=== PATIENT | male | born 1980 | race Caucasian/White ===

== ENCOUNTER → 2019-05-09 10:15 | Outpatient (BNVA) | payer MEDICARE, MEDICAID, SELFPAY | PROVIDERS: Visit Provider Nurse Practitioner | DX: F20.5 Residual schizophrenia (principal) | CPT/HCPCS: 99213 ==

== ENCOUNTER → 2019-08-07 07:44 | Outpatient (BNVA) | payer MEDICARE, MEDICAID, SELFPAY | PROVIDERS: Visit Provider Nurse Practitioner | DX: F20.5 Residual schizophrenia (principal) | CPT/HCPCS: 99214 ==

== ENCOUNTER → 2019-10-31 07:48 | Outpatient (BNVA) | payer MEDICARE, MEDICAID, SELFPAY | PROVIDERS: PCP Nurse Practitioner Family; Visit Provider Nurse Practitioner | DX: F20.5 Residual schizophrenia (principal) | CPT/HCPCS: 99214 ==

== ENCOUNTER → 2019-11-24 12:11 | Outpatient (BNVA) | payer MEDICARE, MEDICAID, SELFPAY | PROVIDERS: PCP Nurse Practitioner Family; Visit Provider Nurse Practitioner Family | DX: E11.9 Type 2 diabetes mellitus without complications (principal); E55.9 Vitamin D deficiency, unspecified; E53.8 Deficiency of other specified B group vitamins; I10 Essential (primary) hypertension; K21.9 Gastro-esophageal reflux disease without esophagitis; E11.42 Type 2 diabetes mellitus with diabetic polyneuropathy; J44.9 Chronic obstructive pulmonary disease, unspecified; E78.5 Hyperlipidemia, unspecified; F20.5 Residual schizophrenia; R60.9 Edema, unspecified; M79.672 Pain in left foot; Z68.31 Body mass index [BMI] 31.0-31.9, adult; F17.210 Nicotine dependence, cigarettes, uncomplicated | CPT/HCPCS: 80053; 80061; 82043; 82306; 82607; 82746; 83036; 84443; 85025; 87086 ==

== ENCOUNTER → 2020-01-07 07:33 | Outpatient (BNVA) | payer MEDICARE, MEDICAID, SELFPAY | PROVIDERS: PCP Nurse Practitioner Family; Visit Provider Nurse Practitioner | DX: F20.5 Residual schizophrenia (principal) | CPT/HCPCS: 99214 ==

== ENCOUNTER → 2020-01-20 14:11 | Outpatient (BNVA) | payer MEDICARE, MEDICAID, SELFPAY | PROVIDERS: PCP Nurse Practitioner Family; Visit Provider Nurse Practitioner Family | DX: R79.89 Other specified abnormal findings of blood chemistry (principal) | CPT/HCPCS: 80053; 85025; 86705; 86706; 86709; 86803; 87340 ==

== ENCOUNTER → 2020-02-23 15:23 | Outpatient (BNVA) | payer MEDICARE, MEDICAID, SELFPAY | PROVIDERS: PCP Nurse Practitioner Family; Visit Provider Nurse Practitioner Family | DX: Z20.828 Contact with and (suspected) exposure to other viral communicable diseases (principal); A08.4 Viral intestinal infection, unspecified | CPT/HCPCS: 87635 ==

== ENCOUNTER → 2020-02-24 10:11 | Outpatient (BNVA) | payer MEDICARE, MEDICAID, SELFPAY | PROVIDERS: PCP Nurse Practitioner Family; Visit Provider Podiatrist Foot & Ankle Surgery | DX: M79.672 Pain in left foot (principal) | CPT/HCPCS: 73630 ==

== ENCOUNTER → 2020-04-13 13:15 | Outpatient (BNVA) | payer MEDICARE, MEDICAID, SELFPAY | PROVIDERS: PCP Nurse Practitioner Family; Visit Provider Nurse Practitioner | DX: F20.5 Residual schizophrenia (principal); F41.1 Generalized anxiety disorder | CPT/HCPCS: 99214 ==

== ENCOUNTER → 2020-05-03 11:44 | Outpatient (BNVA) | payer MEDICARE, MEDICAID, SELFPAY | PROVIDERS: PCP Nurse Practitioner Family; Visit Provider Podiatrist Foot & Ankle Surgery | DX: Z01.812 Encounter for preprocedural laboratory examination (principal) | CPT/HCPCS: 87635 ==

== ENCOUNTER 2020-05-07 08:06 | Day surgery (SDC) | payer MEDICARE, MEDICAID, SELFPAY ==
[2020-05-06 09:08] VITALS: BMI 31.4
--- NOTE | 2020-05-07 | SCC_ITS ---
Procedure Done: Left Bryan bunionectomy CPT code 83367 5 seconds of fluoroscopic guidance, for a cumulative dose of 0.1 mGy, was provided to Dr. Arboleda by the radiology department. C-arm images of the LEFT foot were saved for the patient's permanent record. [facility]
[2020-05-07 08:24] VITALS: BP 132/99; PULSE 106; RESP 18; TEMP 36.2; O2SAT 99
[2020-05-07] MEDS: sodium chloride 0.9% 1,000 ML 30 ML IV (08:30)
--- NOTE | 2020-05-07 08:49 | ANES.PREANE2 ---
Pre-Anesthetic Assessment Pre-Anesthetic Assessment: Height/Weight: Height 1.75 m Weight 96.615 kg Temp Pulse Resp BP Pulse Ox 97.1 F L 106 H 18 132/99 99 05/07/20 08:24 05/07/20 08:24 05/07/20 08:24 05/07/20 08:24 05/07/20 08:24 Preop Diagnosis: Bunion left foot Proposed Procedure: Operation Date: 05/07/20 09:50 Proposed Procedures p Bryan Bunionectomy [place] [id number] M21.612(Left) - Jeet Arboleda DPM s Yo Osteotomy(Left) - Jeet Arboleda DPM Familial anesthetic complications: None Was Beta Bryanna taken within 24 hours: Yes Last intake: Intake Last Liquid Date 05/06/20 Last Liquid Time 21:00 Last Solid Date 05/06/20 Last Solid Time 09:00 Social: Social History: Tobacco and No alcohol Exam: Pre-Anes Outpt Exam: alert, oriented x 3, clear to auscultation bilaterally and regular rate & rhythm Airway: Cervical ROM: WNL MP: 4 Dentition: False Pulmonary: Pulmonary: COPD CV/HEM: CV/HEM: HTN GI: GI: GERD Metabolic: Metabolic: DM and Hyperlipidemia Anesthetic Plan: ASA status: 3 Anesthesia: MAC Risk of > 500 ml blood loss (7ml/kg in children): No PFSH Anesthesia PFSH: Medical History Chronic back pain COPD (chronic obstructive pulmonary disease) Diabetic neuropathy Elevated LFTs Encounter for screening laboratory testing for COVID-19 virus Folate deficiency Generalized anxiety disorder GERD (gastroesophageal reflux disease) Hyperlipidemia Hypertension Peripheral edema Residual schizophrenia Type 2 diabetes mellitus Viral gastroenteritis Vitamin D deficiency Social History Smoking and tobacco status: current every day smoker cigarettes Packs smoked per day: 0.5 Years cigarettes smoked: 16 Second hand smoke exposure: No Smoking risk assessment/counseling performed?: Yes Tobacco counseling given: counseling >3 minutes Alcohol intake: never Lives independently: No Household members: family Marital status: Single Current occupational status: disabled History of recent travel: No Current gender identity: Male Data Anesthesia Cardiac Studies: No Data to Display
[2020-05-07 08:53] LABS: Glucose Point of Care 130 mg/dL (70-110)
[2020-05-07] MEDS: midazolam 1 mg/mL INJ 2 mL 2 MG IVP (09:04)
--- NOTE | 2020-05-07 09:10 | P.HPUD_ITS ---
Surgery/Procedure H&P Update DATE OF PROCEDURE: May 07, 2020 DATE H&P PERFORMED: 05/03/20 H&P UPDATE INFORMATION: I have reviewed H&P completed within last 30 days, I have examined patient prior to procedure, No changes to prior documentation and H&P is in [facility] EMR on date indicated PREOP DIAGNOSIS: Bunion left foot PLANNED PROCEDURE: Operation Date: 05/07/20 09:50 Proposed Procedures p Bryan Bunionectomy [place] [id number] M21.612(Left) - Jeet Arboleda DPM s Yo Osteotomy(Left) - Jeet Arboleda DPM
--- NOTE | 2020-05-07 10:33 | ANE.PACU2 ---
Inpatient post-anesthesia follow up: Airway intact: Yes Vital signs: Temperature 97.1 F Pulse Rate 106 Respiratory Rate 18 Blood Pressure 132/99 Pulse Oximetry 99 Oxygen Delivery Me thod Room Air Oxygen Flow Rate Fraction of Inspir ed Oxygen Hydration adequate: Yes Nausea and vomiting: No Pain level: 1 Mental status: Baseline
--- NOTE | 2020-05-07 10:34 | XR_ITS ---
WS: [id number] Left foot, 3 views, 05/07/2020 Clinical Data: post op Comparison: Left foot, 02/24/2020. Findings: The patient has had an osteotomy of the distal left first metatarsal reduced with an oblique screw an d a lateral plate and transverse screws. The remainder the foot is unremarkable. XR/XR foot LT min 3V* 00800 Impression: Osteotomy of distal left first metatarsal.
[2020-05-07 10:36] VITALS: BP 135/91; PULSE 95; RESP 18; TEMP 36.1; O2SAT 98
[2020-05-07 10:55] VITALS: BP 124/93; PULSE 92; RESP 18; O2SAT 97
--- NOTE | 2020-05-07 11:18 | P.OP_ITS ---
Operative Report Date of procedure: May 07, 2020 Pre-op Diagnosis: Bunion left foot Post-op diagnosis: same Procedure Done: Left Bryan bunionectomy CPT code 65984 Implants: Right medical minimax lock ISO plate. 2.4 mm x 20 mm locking screw x2, 2.4 mm x 22 mm nonlocking screw. 3-0 Vicryl, 4-0 Vicryl, 4-0 nylon. Pathology: none sent Surgeon: Jeet Arboleda D.P.M. Night Court Magistrate: Stella Miranda Anesthesia: MAC Estimated blood loss: Less than 5 mL Tourniquet time: See intraoperative documentation IV fluids: None Urine output: None Complications: None Findings: Bunion left foot Condition: stable Disposition: PACU Brief History: Mr. Gutierrez is a 39-year-old male with a progressive bunion deformity that has increased in pain. He is unable to perform everyday activities without pain this include standing and walking. Conservative treatment has been exhausted consisting of wide accommodative shoes, orthotics, stretching, anti-inflammatories and activity modifications. He would like to proceed with a bunionectomy. Risks include pain, bleeding, numbness, infection, hallux varus, under correction of deformity, under correction of deformity, hardware failure, hardware irritation, delayed union, nonunion, malunion, transfer pressure and transfer lesion. Hypersensitivity, numbness chronic swelling and loss of function and need for further surgical intervention also risk of recurrence of deformity. Patient interviewed in preoperative holding, all questions answered to his satisfaction. No guarantees written, expressed or implied. Informed consent is signed, I initialed his left foot, he also initialed his left foot. Ready to proceed. Procedure: Under mild sedation the patient was brought to the operating room and placed on the operating table in supine position. A timeout was performed. Anesthesia was administered by the anesthesia service. Local anesthesia injected by myself consisting of 30 cc of 0.5 sent Marcaine plain and a left Mera block fashion. Well-padded pneumatic tourniquet applied to the left ankle. Left lower extremity was scrubbed, prepped and draped utilizing normal aseptic technique. Left foot is examined a weighted with an Esmarch bandage and tourniquet inflated to 250 mmHg. There was an issue with a tourniquet and an Esmarch tourniquet was applied to maintain hemostasis. Attention was directed to the dorsal medial aspect of the left first metatarsophalangeal joint where a linear longitudinal incision was made medial and parallel to the extensor houses longus tendon. Dissection was carried down through subcutaneous tissue and a linear capsulotomy was performed. Head of the first metatarsal was freed from its soft tissue attachments. Dorsal medial eminence of the first metatarsal head was transected with a sagittal saw and passed from operative field. Chevron osteotomy with apex pointed distally was performed 15 mm from the articular surface at at the apex followed by translation of the head of the first metatarsal laterally temporally fixated with a K wire. The first metatarsal was broached intramedullary broach was utilized provided by [employer]. Followed by countersink and removing the remaining shelf of the medial first metatarsal head and neck. This was passed from operative field and all rough edges were smoothed. Mini Max Loc, ISL plate was inserted down the medullary canal of the first metatarsal and fixated distally with 2.4 mm x 20 mm locking screws x2 with excellent bony apposition and compression noted. Alcohol was filled with a 2.4 mm x 22 mm nonlocking screw with excellent bony apposition and compression noted. Guides were removed, temporary fixation was removed. Intraoperative fluoroscopy utilized to confirm excellent correction of the first ray and placement of orthopedic hardware to be appropriate in all 3 cardinal planes. Incision site was then flushed with saline solution. Capsule closed with 3-0 Vicryl. Subcutaneous tissue closed with 4-0 Vicryl and skin closed with 4-0 nylon. Incision site was infiltrated subcutaneously in a grid like fashion utilizing 20 cc of Exparel per manufacture recommendation and technique. This was then dressed with Adaptic, sterile 4 x 4, Kerlix and Toño wrap followed by application of cam boot. Tourniquet was removed and a prompt hyperemic response is noted to the distal digits of the left foot. Patient tolerated procedure well was transferred to the PACU with vital signs stable and vascular status intact. Following a period of postoperative monitoring he will be discharged home he was prescribed a set of crutches to utilize and help stabilize his gait he may be protected weightbearing with Cam boot utilizing crutches for stability. Was also prescribed Percocet states that the allergy that was listed in our system is incorrect that he does not have an allergy to Percocet this was sent to his pharmacy of choice electronically to be utilize judiciously as needed for pain.
== END 2020-05-07 11:02 | disposition home or self-care (01) ==
PROVIDERS: PCP Nurse Practitioner Family; Visit Provider Podiatrist Foot & Ankle Surgery
PROC: (CPT 28297; principal; 2020-05-07 09:50)
PROC: (CPT 28298; 2020-05-07 09:50)
DX: M21.612 Bunion of left foot (principal); J44.9 Chronic obstructive pulmonary disease, unspecified; I10 Essential (primary) hypertension; K21.9 Gastro-esophageal reflux disease without esophagitis; E11.9 Type 2 diabetes mellitus without complications; E78.5 Hyperlipidemia, unspecified; F41.9 Anxiety disorder, unspecified; F17.210 Nicotine dependence, cigarettes, uncomplicated
CPT/HCPCS: 28296; 12345; 36416; 73630; 76000; 82962; C1713; C9290; J0690; J2250; J2704; J3010; J3490; J7030

== ENCOUNTER → 2020-05-12 08:51 | Outpatient (BNVA) | payer MEDICARE, MEDICAID, SELFPAY | PROVIDERS: PCP Nurse Practitioner Family; Visit Provider Nurse Practitioner | DX: F20.5 Residual schizophrenia (principal); F41.1 Generalized anxiety disorder | CPT/HCPCS: 99214 ==

== ENCOUNTER → 2020-05-14 09:35 | Outpatient (BNVA) | payer MEDICARE, MEDICAID, SELFPAY | PROVIDERS: PCP Nurse Practitioner Family; Visit Provider Podiatrist Foot & Ankle Surgery | DX: M21.612 Bunion of left foot (principal); M79.672 Pain in left foot | CPT/HCPCS: 73630 ==

== ENCOUNTER 2020-06-03 08:38 | Outpatient (CLI) | payer MEDICARE, MEDICAID, SELFPAY ==
--- NOTE | 2020-06-03 08:50 | XR_ITS ---
WS: [id number] FOOT LEFT TECHNIQUE: 3 views of the left foot CLINICAL INFORMATION: Z98.890 - Other specified postprocedural states COMPARISON: May 14, 2020 FINDINGS: Postoperative changes bunionectomy with osteotomy. Plate and screw fixation across the head of the fi rst metatarsal. No evidence of screw loosening. Hardware appears in good position. XR/XR foot LT min 3V* [id number] IMPRESSION: Stable postoperative changes bunionectomy with osteotomy and plate and screw fi xation.
== END 2020-06-03 08:39 | disposition home or self-care (01) ==
PROVIDERS: PCP Nurse Practitioner Family; Visit Provider Podiatrist Foot & Ankle Surgery
DX: Z98.890 Other specified postprocedural states (principal)
CPT/HCPCS: 73630

== ENCOUNTER → 2020-06-08 10:43 | Outpatient (BNVA) | payer MEDICARE, MEDICAID, SELFPAY | PROVIDERS: PCP Nurse Practitioner Family; Visit Provider Nurse Practitioner Family | DX: E55.9 Vitamin D deficiency, unspecified (principal); I10 Essential (primary) hypertension; R73.9 Hyperglycemia, unspecified | CPT/HCPCS: 80053; 80061; 82306; 83036; 84443; 85025 ==

== ENCOUNTER → 2020-06-21 13:20 | Outpatient (BNVA) | payer MEDICARE, MEDICAID, SELFPAY | PROVIDERS: PCP Nurse Practitioner Family; Visit Provider Podiatrist Foot & Ankle Surgery | DX: M21.612 Bunion of left foot (principal) | CPT/HCPCS: 73630 ==

== ENCOUNTER → 2020-07-14 13:56 | Outpatient (BNVA) | payer MEDICARE, MEDICAID, SELFPAY | PROVIDERS: PCP Nurse Practitioner Family; Visit Provider Podiatrist Foot & Ankle Surgery | DX: Z98.890 Other specified postprocedural states (principal) | CPT/HCPCS: 73630 ==

== ENCOUNTER → 2020-07-28 11:06 | Outpatient (BNVA) | payer MEDICARE, MEDICAID, SELFPAY | PROVIDERS: PCP Nurse Practitioner Family; Visit Provider Nurse Practitioner | DX: E11.42 Type 2 diabetes mellitus with diabetic polyneuropathy (principal); E55.9 Vitamin D deficiency, unspecified; I10 Essential (primary) hypertension | CPT/HCPCS: 72072; 72100; 80048; 82607 ==

== ENCOUNTER → 2020-07-30 12:40 | Outpatient (BNVA) | payer MEDICARE, MEDICAID, SELFPAY | PROVIDERS: PCP Nurse Practitioner Family; Visit Provider Nurse Practitioner | DX: F41.1 Generalized anxiety disorder (principal); F20.5 Residual schizophrenia | CPT/HCPCS: 99214 ==

== ENCOUNTER 2020-08-03 11:08 | Outpatient (CLI) | payer MEDICARE, MEDICAID, SELFPAY | END 2020-08-03 11:09 | disposition home or self-care (01) | LOC: SPT 11:09 | PROVIDERS: PCP Nurse Practitioner Family; Visit Provider Podiatrist Foot & Ankle Surgery | DX: Z46.89 Encounter for fitting and adjustment of other specified devices (principal); M79.672 Pain in left foot; M21.612 Bunion of left foot | CPT/HCPCS: 97760; L3030 ==

== ENCOUNTER → 2020-08-09 14:46 | Outpatient (BNVA) | payer MEDICARE, MEDICAID, SELFPAY | PROVIDERS: PCP Nurse Practitioner Family; Visit Provider Nurse Practitioner Family | DX: R60.9 Edema, unspecified (principal); E11.42 Type 2 diabetes mellitus with diabetic polyneuropathy; I10 Essential (primary) hypertension | CPT/HCPCS: 80048; 83880 ==

== ENCOUNTER → 2020-08-19 09:42 | Outpatient (BNVA) | payer MEDICARE, MEDICAID, SELFPAY | PROVIDERS: PCP Nurse Practitioner Family; Referring Provider Nurse Practitioner; Visit Provider Orthopaedic Surgery | DX: M47.896 Other spondylosis, lumbar region (principal); M43.17 Spondylolisthesis, lumbosacral region; M54.5 Low back pain | CPT/HCPCS: 72110 ==

== ENCOUNTER 2020-08-20 13:46 | Outpatient (CLI) | payer MEDICARE, MEDICAID, SELFPAY ==
--- NOTE | 2020-08-20 14:30 | MR_ITS ---
WS: [id number] MRI LUMBAR SPINE NONCONTRAST TECHNIQUE: Sagittal T1, T2 and STIR imaging. Axial T1 and T2 imaging. CLINICAL INFORMATION: COMPARISON: None. FINDINGS: Mild lumbar curve. No acute compression. No high-grade central canal stenosis. Grade 1 anterolisthesi s L5 on S1 with chronic spondylolysis. Grade 1 anterolisthesis measures 7.8 mm. L1-L2: Normal. L2-L3: No significant disc bulging. Mild facet arthropathy. Spinal canal and foramen are patent. L3-L4: Mild annular bulging with a small central disc protrusion and small annular fissure. Mild cent ral canal stenosis. Impingement on the traversing L4 nerve roots bilaterally. Mild facet arthropathy. Foramen are patent. L4-L5: Mild disc bulging with slight effacement of the ventral thecal sac. Mild central canal stenosi s. Slight impingement traversing L5 nerve roots bilaterally. Mild facet arthropathy. Mild right raymon inal narrowing. Left foramen is patent. L5-S1: Grade 1 anterolisthesis with bilateral chronic pars defects. Mild facet arthropathy. Mild left greater than right foraminal narrowing. Mild Visualized pelvic bony structures: Normal. Paravertebral soft tissues: Normal. MR/MR lumbar spine wo con* [id number] IMPRESSION: 1. Mild lumbar curve. No acute compression. No high-grade central canal stenos is. 2. Grade 1 anterolisthesis L5 on S1 with chronic bilateral pars defects. 3. Small shallow central protrusion L3-4 with a small annular tear and mild ce ntral canal stenosis. Slight impingement traversing L4 nerve roots bilaterally. 4. Mild annular bulging L4-5 with slight impingement on the traversing L5 nerv e roots bilaterally with mild central canal stenosis. Right foraminal protrusio n with mild right foraminal narrowing. 5. Mild left greater than right L5-S1 foraminal narrowing.
== END 2020-08-20 13:47 | disposition home or self-care (01) ==
PROVIDERS: PCP Nurse Practitioner Family; Visit Provider Orthopaedic Surgery
DX: M43.10 Spondylolisthesis, site unspecified (principal); M51.26 Other intervertebral disc displacement, lumbar region; M48.061 Spinal stenosis, lumbar region without neurogenic claudication
CPT/HCPCS: 72148

== ENCOUNTER → 2020-08-25 08:22 | Outpatient (BNVA) | payer MEDICARE, MEDICAID, SELFPAY | PROVIDERS: PCP Nurse Practitioner Family; Referring Provider Orthopaedic Surgery; Visit Provider Anesthesiology Pain Medicine | DX: M51.17 Intervertebral disc disorders with radiculopathy, lumbosacral region (principal); M47.816 Spondylosis without myelopathy or radiculopathy, lumbar region; M48.061 Spinal stenosis, lumbar region without neurogenic claudication; M54.9 Dorsalgia, unspecified; M79.605 Pain in left leg; F17.210 Nicotine dependence, cigarettes, uncomplicated; Z79.891 Long term (current) use of opiate analgesic | CPT/HCPCS: 99205 ==

== ENCOUNTER → 2020-09-03 15:26 | Outpatient (BNVA) | payer MEDICARE, MEDICAID, SELFPAY | PROVIDERS: PCP Nurse Practitioner Family; Visit Provider Orthopaedic Surgery | DX: Z20.822 Contact with and (suspected) exposure to COVID-19 (principal) | CPT/HCPCS: 87635 ==

== ENCOUNTER 2020-09-08 10:50 | Observation (INO) | payer MEDICARE, MEDICAID, SELFPAY ==
[2020-09-07 11:46] VITALS: BMI 31.0
--- NOTE | 2020-09-07 11:55 | ANES.PREANE2 ---
Pre-Anesthetic Assessment Pre-Anesthetic Assessment: Height/Weight: Height 1.75 m Weight 95.254 kg Preop Diagnosis: Bunion left foot Proposed Procedure: Operation Date: 09/08/20 07:00 Proposed Procedures p L4/5 L5/S1 Posterior Lumbar Interbody Fusion [id number] 61232 M43.10 M48.062(Not Applicable) - Nirmal Hannon, Familial anesthetic complications: None Social: Social History: Tobacco and No alcohol Comment: remote alcohol use Exam: Pre-Anes Outpt Exam: alert, oriented x 3, clear to auscultation bilaterally and regular rate & rhythm Airway: Cervical ROM: WNL MP: 3 Dentition: False Pulmonary: Pulmonary: COPD CV/HEM: CV/HEM: HTN Hepatic: Comments: hx elevated LFTs (remote) GI: GI: GERD Metabolic: Metabolic: DM and Hyperlipidemia Neuropsych: Neuropsych: Anxiety and Bipolar Anesthetic Plan: ASA status: 3 Anesthesia: General Risk of > 500 ml blood loss (7ml/kg in children): No PFSH Anesthesia PFSH: Medical History Chronic back pain COPD (chronic obstructive pulmonary disease) Diabetic neuropathy Elevated LFTs Encounter for screening laboratory testing for COVID-19 virus Folate deficiency Generalized anxiety disorder GERD (gastroesophageal reflux disease) Hyperlipidemia Hypertension Peripheral edema Residual schizophrenia Viral gastroenteritis Vitamin D deficiency Surgical History History of vasectomy Social History (Updated 08/25/20 @ 08:45 by Michelle Maldonado LPN) Smoking and tobacco status: current every day smoker cigarettes Packs smoked per day: 0.5 Years cigarettes smoked: 16 Second hand smoke exposure: No Smoking risk assessment/counseling performed?: Yes Tobacco counseling given: counseling >3 minutes Alcohol intake: never Desire information about alcohol rehabilitation?: No Counseling given: No Desire information about substance/drug rehabilitation?: No Counseling given: No Adopted: No Caregiver/support person: No Lives independently: Yes Household members: family Housing: House Marital status: Single Number of children: 2 service: No Current occupational status: disabled History of recent travel: No Current gender identity: Male Data Anesthesia Cardiac Studies: No Data to Display
[2020-09-07 13:21] LABS: Basophils # 0.1 10^3/uL (0.0-0.1); Basophils % 0.8 %; Eosinophils # 0.1 10^3/uL (0.0-0.8); Hematocrit 46.1 % (42.0-52.0); Hemoglobin 15.9 g/dL (11.7-16.6); Lymphocytes # 3.6 10^3/uL (0.8-4.8); Lymphocytes % 26.3 %; Mean Corpuscular HGB Conc 34.5 g/dL (30.0-36.0); Mean Corpuscular Hemoglobin 30.6 pg (28.0-34.0); Mean Corpuscular Volume 88.8 fL (80-94); Mean Platelet Volume 10.6 fL (7.4-10.4); Neutrophils # 8.88 10^3/uL (1.8-7.7); Neutrophils % 64.2 %; Nucleated Red Blood Cells % 0.1 %; Platelet Count 277 10^3/cmm (130-400); Red Blood Count 5.19 10^6/uL (4.1-5.3); Red Cell Distribution Width 13.8 % (12.1-15.1); White Blood Count 13.8 10^3/uL (4.0-10.0)
[2020-09-07 13:36] LABS: Alanine Aminotransferase 76 U/L (0-41); Albumin Level 4.3 g/dL (3.5-5.2); Alkaline Phosphatase 125 IU/L (40-130); Anion Gap 15.5 (5-19); Aspartate Amino Transferase 61 U/L (0-40); Blood Urea Nitrogen 5 mg/dL (6-20); Calcium 9.3 mg/dL (8.5-10.5); Carbon Dioxide 25 mmol/L (22-29); Chloride 100 mmol/L (98-107); Globulin 3.1 g/dL (1.3-4.6); Glomerular Filtration Rate 108.8 mL/min (90-130); Glucose 76 mg/dL (65-115); Osmolality Calculated 278 mOsm/kg (285-295); Potassium 4.5 mmol/L (3.5-5.1); Sodium 136 mmol/L (136-145); Total Bilirubin 0.3 mg/dL (0.15-1.2); Total Protein 7.4 g/dL (6.6-8.7)
[2020-09-08] VITALS (22 sets, daily range): BP systolic 101–182; BP diastolic 56–158; PULSE 99–124; RESP 15–24; TEMP 36.3–37.3; O2SAT 94–99
--- NOTE | 2020-09-08 | SCC_ITS ---
Procedure Done: 1. L4/5 Interbody fusion with posterolateral fusion 2. L5/S1 Interbody fusion with posterolateral fusion 3. Instrumentation L4-S1 4. Cage at L4/5 5. Cage L5/S1 6. Laminectomy L4 for decompression of L5 nerve 7. Laminectomy L5 for decompression of S1 nerve 8. use of autograft from same incision 9. allograft 10. Bone marrow aspirate from right iliac crest 11. Use of computer navigation stereotactic 28 seconds of fluoroscopic guidance, for a cumulative dose of 59.6 mGy, was provided to Dr. Hannon by the radiology department. C-arm images of the lumbar spine were saved for the patient's permanent record. [facility]
--- NOTE | 2020-09-08 | XR_ITS ---
WS: [id number] Lumbar spine, C-arm fluoroscopy, 09/08/2020 Clinical Data: spondylolisthesis Comparison: None. Findings: There is a posterior lumbar fusion with bilateral pedicle screws at L4-L5 and S1. There is artificial disc at L4-L5 and L5-S1. XR/XR lumbar spine 2-3V* [id number] Impression: Posterior lumbar fusion.
[2020-09-08] MEDS: sodium chloride 0.9% 1,000 ML 30 ML IV (06:24)
--- NOTE | 2020-09-08 06:49 | W.PM.OPSUD ---
Surgery/Procedure H&P Update DATE OF PROCEDURE: September 08, 2020 DATE H&P PERFORMED: 08/24/20 H&P UPDATE INFORMATION: I have reviewed H&P completed within last 30 days, I have examined patient prior to procedure and No changes to prior documentation PREOP DIAGNOSIS: Bunion left foot PLANNED PROCEDURE: Operation Date: 09/08/20 07:00 Proposed Procedures p L4/5 L5/S1 Posterior Lumbar Interbody Fusion [id number] 87047 81640 [id number] 59955 M43.10 M48.062(Not Applicable) - Nirmal Hannon DO
[2020-09-08] MEDS: heparin, porcine 1,000 unit/mL INJ 10 mL 10000 UNIT IRRIGATION (07:51)
[2020-09-08] MEDS: vancomycin 1,000 MG SDV 1000 MG XX (10:32)
--- NOTE | 2020-09-08 10:55 | PM.OP ---
Operative Report Date of procedure: September 08, 2020 Pre-op Diagnosis: Lumbar stenosis and Spondylolisthesis Post-op diagnosis: same Procedure Done: 1. L4/5 Interbody fusion with posterolateral fusion 2. L5/S1 Interbody fusion with posterolateral fusion 3. Instrumentation L4-S1 4. Cage at L4/5 5. Cage L5/S1 6. Laminectomy L4 for decompression of L5 nerve 7. Laminectomy L5 for decompression of S1 nerve 8. use of autograft from same incision 9. allograft 10. Bone marrow aspirate from right iliac crest 11. Use of computer navigation stereotactic Surgeon: Nirmal Hannon Anesthesia: General Estimated blood loss (mL): 150 Condition: stable Disposition: PACU Procedure: 1. L4/5 Interbody fusion with posterolateral fusion 2. L5/S1 Interbody fusion with posterolateral fusion 3. Instrumentation L4-S1 4. Cage at L4/5 5. Cage L5/S1 6. Laminectomy L4 for decompression of L5 nerve 7. Laminectomy L5 for decompression of S1 nerve 8. use of autograft from same incision 9. allograft 10. Bone marrow aspirate from right iliac crest 11. Use of computer navigation stereotactic Patient is brought to the operative suite. After undergoing anesthesia, the patient had neuro monitoring attached. Patient was then placed in the prone position on the Carlos table. All areas of impingement were well-padded. Patient was then prepped and draped in the normal sterile fashion. Skin incision was then made over the L4 to S1 space. Subperiosteal dissection was made out to the transverse processes of L4 and L5 and the Ala of S1. Once the exposure was complete attention was then brought to placing the pedicle screws. Prior to placing the pedicle screws the [employer] bone marrow aspirate kit was used to aspirate bone marrow aspirate. This was done by using the sharp probe to open up the bone of the right iliac crest. Aspiration was performed and then the blunt probe was then used to dissect down to through the bone tunnel. An aspirating well drawn back a millimeter approximately 20 cc of bone marrow aspirate was used. And mixed with the allograft and autograft bone that will be used. The fiducial probe was then attached to the iliac crest on the right. To pins were drilled into the iliac crest. And then the fiducial was locked into position and read with the computer in order to perform the computer-assisted navigation. The technique for placing the pedicle screws was to use a drill followed by the gearshift probe with stereotactic navigation. Followed by the ball probe to feel the superior inferior medial lateral car of the pedicles. Then placement of the screws. Was done at each pedicle. Screws were placed at L L4 bilaterally and L L5 bilaterally and S1 bilaterally. These were all done by using the computer navigation. Next attention was brought to performing the laminectomy ofL4. This was done using the high-speed bur Kerrisons and curettes. Once the lamina was removed and then attention was brought to performing a partial facetectomy on the contralateral side. This was done again using the high-speed bur curettes and Kerrisons. The ligamentum flavum was taken down bilaterally from L4 to L5. Attention was then brought to the facet on the ipsilateral side. The facet was taken down. The L5 nerve was decompressed as it passed around the L5 pedicle. The laminectomy was done for purposes of decompressing the nerve as well as placement of the cage. The L4 nerve was identified as it traversed through the L4/5 foramen. The thecal sac was identified and retracted. The L4/5 disc base was identified. Using a knife the disc base was opened. And then sequential osmel were placed. The first shaver was a 6 and the last shaver was a 8. Using a pituitary and down going curette the endplates were scraped and disc material was removed from the space. Once adequate decompression of the disc base was felt to be had. Osteoamp sponge was packed into the anterior aspect of the disc base. Then a size 8 cage from [employer] was placed after packing osteoamp into the cage. While placing the cage the thecal sac and L5 nerve was protected. C arm was used to ensure that the cages placed in the appropriate position. Next attention was brought to performing the laminectomy ofL5. This was done using the high-speed bur Kerrisons and curettes. Once the lamina was removed and then attention was brought to performing a partial facetectomy on the contralateral side. This was done again using the high-speed bur curettes and Kerrisons. The ligamentum flavum was taken down bilaterally from L5 to S1. Attention was then brought to the facet on the ipsilateral side. The facet was taken down. The S1 nerve was decompressed as it passed around the S1 pedicle. The laminectomy was done for purposes of decompressing the nerve as well as placement of the cage. The L5 nerve was identified as it traversed through the L5/S1 foramen. The thecal sac was identified and retracted. The L5/S1 disc base was identified. Using a knife the disc base was opened. And then sequential osmel were placed. The first shaver was a 6 and the last shaver was a 8. Using a pituitary and down going curette the endplates were scraped and disc material was removed from the space. Once adequate decompression of the disc base was felt to be had. Osteoamp sponge was packed into the anterior aspect of the disc base. Then a size 8 cage from [employer] was placed after packing osteoamp into the cage. While placing the cage the thecal sac and S1 nerve was protected. C arm was used to ensure that the cages placed in the appropriate positi Attention was then brought to attaching the rods to the screws placed in the L4 bilaterally and L5 bilaterally and S1 bilaterally. Caps were torqued into position. Locking the construct in place. Wound was copiously irrigated and then attention was brought to decorticating the facets and transverse processes laterally. Bone that was taken down from the lamina was used along with osteoamp fibers and sponges were packed into the lateral gutters along the facet joints. This was done bilaterally. Wound was then closed in a layered fashion starting with the thoracolumbar fascia. 0-vicryl was used the sub cutaneous tissue was closed with 2-0 vicryl and skin with 4-0 monocryl. Glue was then used to seal the skin and a steril Silverlon dressing was applied. Patient was then placed in the supine position. The endotracheal tube was removed and patient was transferred to the PACU in stable condition.
[2020-09-08] MEDS: ipratropium 0.5 mg/2.5 mL Neb INHALATION (10:59)
[2020-09-08] MEDS: naloxone 0.4 mg/ml SDV IVP (11:14)
--- NOTE | 2020-09-08 11:22 | PM.CONSULT ---
Providers/Reason For Consult Consulting Physician/Specialty*: Dixon Saavedra MD, hospitalist Reason for Consult*: Medical management, hypertension management Attending Physician: Nirmal Hannon DO Primary Care Provider: WYATT Thomas History of Present Illness History of Present Illness Aries Gutierrez is a 39 year old male who presents to the outpatient surgery for surgical intervention on his lower back for chronic low back pain, having the diagnosis of lumbar stenosis and spondylolisthesis. He underwent fusion of L4/L5 and L5/S1 with instrumentation and cage. From my understanding there were no complications to surgery. I saw him directly postoperatively and he was somewhat sedated unable to answer many questions. Anesthesia saw him as well and gave him a small dose of Narcan and his level of alertness improved. However, full review of systems cannot be done at this time. Review of Systems General: Reports: ROS unobtainable due to mental status (Sedated, directly postoperative) Meds/Allergies Home Medications and Allergies Home Medications Medication Instructions Recorded Confirmed Last Taken Type nitroglycerin 0.4 mg sublingual 0.4 mg SUBLINGUAL Q5M PRN 05/09/19 09/07/20 Unknown History tablet albuterol sulfate 2.5 mg INHALATION QID PRN #75 ml 09/12/19 09/08/20 05/04/20 Rx ondansetron HCl 4 mg tablet 4 mg PO Q6H PRN #20 tab 02/23/20 09/07/20 Unknown Rx crutch #2 ea 05/05/20 08/25/20 Unknown Rx atorvastatin 40 mg tablet See Rx Instructions .ROUTE 06/08/20 09/07/20 Unknown Rx .COMPLEX #90 tab cetirizine 10 mg tablet 10 mg PO DAILY #30 tab 06/08/20 09/07/20 Unknown Rx famotidine 20 mg tablet See Rx Instructions .ROUTE 06/08/20 09/07/20 Unknown Rx .COMPLEX #180 tab folic acid 1 mg tablet See Rx Instructions .ROUTE 06/08/20 09/07/20 Unknown Rx .COMPLEX #90 tab lisinopril 10 mg tablet See Rx Instructions .ROUTE 06/08/20 09/07/20 Unknown Rx .COMPLEX #90 tab sitagliptin 100 mg-metformin ER See Rx Instructions .ROUTE 06/08/20 09/07/20 Unknown Rx 1,000 mg tablet,extended .COMPLEX #90 tab [email or web address] mp custom sole support #1 ea 07/14/20 08/25/20 Unknown Rx diabetic shoes no inserts #1 ea 07/14/20 08/25/20 Unknown Rx albuterol sulfate 90 mcg/actuation See Rx Instructions .ROUTE 07/26/20 09/08/20 09/08/20 06:08 Rx aerosol inhaler .COMPLEX #18 g desvenlafaxine succinate 50 mg 50 mg PO DAILY #30 tab 07/30/20 09/07/20 Unknown Rx tablet,extended release 24 hr olanzapine 20 mg tablet 20 mg PO .HS #30 tab 07/30/20 09/07/20 Unknown Rx propranolol 10 mg tablet 10 mg PO TID #90 tab 07/30/20 09/07/20 Unknown Rx trazodone 50 mg tablet 75 mg PO .HS #45 tab 07/30/20 09/07/20 Unknown Rx potassium chloride 10 mEq 10 meq PO DAILY #14 cap 08/09/20 09/07/20 Unknown Rx capsule,extended release Diabetic Shoes #1 ea 08/13/20 08/25/20 Unknown Rx gabapentin 600 mg tablet 600 mg PO TID #90 tab 08/25/20 09/07/20 Unknown Rx oxycodone-acetaminophen 5 mg-325 1 tab PO Q8H PRN 7 Days #21 tab 08/31/20 09/07/20 Unknown Rx mg tablet furosemide 20 mg tablet 20 mg PO QAM #30 tab 09/02/20 09/07/20 Unknown Rx Allergies Allergy/AdvReac Type Severity Reaction Status Date / Time quetiapine [From Seroquel] Allergy SEIZURES Verified 08/25/20 08:44 Current Medications Current Medications Generic Name Dose Route Start Last Admin Trade Name Freq PRN Reason Stop Dose Admin Sodium Chloride 1,000 mls @ 30 mls/hr 09/08/20 06:00 09/08/20 06:24 Sodium Chloride 0.9% IV 09/09/20 05:59 30 mls/hr .Q24H MICAH Administration PFSH Acute PFSH: Medical History (Updated 09/08/20 @ 11:34 by Dixon Saavedra MD) Chronic back pain COPD (chronic obstructive pulmonary disease) Diabetes mellitus Diabetic neuropathy Elevated LFTs Encounter for screening laboratory testing for COVID-19 virus Folate deficiency Generalized anxiety disorder GERD (gastroesophageal reflux disease) Hyperlipidemia Hypertension Peripheral edema Residual schizophrenia Viral gastroenteritis Vitamin D deficiency Surgical History History of vasectomy Social History Smoking and tobacco status: current every day smoker cigarettes Packs smoked per day: 0.5 Years cigarettes smoked: 16 Second hand smoke exposure: No Smoking risk assessment/counseling performed?: Yes Tobacco counseling given: counseling >3 minutes Alcohol intake: never Desire information about alcohol rehabilitation?: No Counseling given: No Desire information about substance/drug rehabilitation?: No Counseling given: No Adopted: No Caregiver/support person: No Lives independently: Yes Household members: family Housing: House Marital status: Single Number of children: 2 service: No Current occupational status: disabled History of recent travel: No Current gender identity: Male Vitals/I&O/Wt Last Vital Signs Temp 99.2 F 09/08/20 10:58 Pulse 110 H 09/08/20 11:15 Resp 24 H 09/08/20 11:15 BP 151/81 09/08/20 11:15 Pulse Ox 99 09/08/20 11:15 09/07/20 09/08/20 09/08/20 22:59 06:59 14:59 Intake Total 950 / 950 Output Total 400 / 400 Balance 550 / 550 Weight last 48 hrs Weight 95.254 kg Weight 95.254 kg Physical Exam Narrative: EXAM NARRATIVE: Sedated white male who is now coming around. HEENT: Pupils equally round. Oropharynx clear. Neck is supple no lymphadenopathy or thyromegaly Cardiovascular regular rate and rhythm without murmur Lungs a few expiratory wheezes, and upper airway noises that appear to be clearing with him coughing Abdomen is soft obese nontender with positive bowel sounds. No obvious organomegaly. Binder is noted. was deferred Extremities no cyanosis clubbing or edema, cap refill brisk. Neurologic: No obvious focal deficits. Able to dorsiflex both feet. Urinary Catheter Management^: F: Cath Placed During This Visit: yes, but has since been removed by the nurse Urinary Catheter Date of Insertion: 09/08/20 Urinary Catheter Time of Insertion: 07:20 Date Urinary Catheter Removed: 09/08/20 Time Urinary Catheter Discontinued: 10:55 A&P Assessment and plan (1) Lumbar stenosis: Directly postoperative L5/S1 and L4/L5 fusion. Doing well. Status: Acute (2) COPD (chronic obstructive pulmonary disease): Continue home medication, monitor for any exacerbation Status: Acute Qualifiers: COPD type: unspecified COPD Qualified Code(s): J44.9 - Chronic obstructive pulmonary disease, unspecified (3) Hypertension: Continue home medication Status: Chronic Qualifiers: Hypertension type: essential hypertension Qualified Code(s): I10 - Essential (primary) hypertension (4) Diabetes mellitus: Change diet to consistent carb Continue home medication Previous A1c's demonstrate excellent control. Status: Acute (5) Residual schizophrenia: Continue home medication Status: Acute Additional A&P Information Hyperlipidemia, continue home medicine GERD, continue home medicine Multiple other medical problems as outlined in past medical history. Full code Lovenox for DVT prophylaxis Consult Attestations Medical Necessity Statement: As per primary Time Spent in Patient Care: Greater than 35 minutes Coding Level of Care Code Acute [employer] for [facility] Fwd Diagnoses Lumbar stenosis M48.061 COPD (chronic obstructive pulmonary disease) J44.9 COPD type: unspecified COPD Hypertension I10 Hypertension type: essential hypertension Diabetes mellitus E11.9 Residual schizophrenia F20.5
[2020-09-08] MEDS: labetalol 5 mg/mL SDV 20mL IVP (11:31)
--- NOTE | 2020-09-08 11:43 | SUR.PHASEI ---
1115- ORAL AIRWAY OUT, SIMPLE MASK AT 10LPM, SAT 99%
[2020-09-08] MEDS: lactated ringers 1,000 ML 90 ML IV ×2 (12:17→21:30)
[2020-09-08 12:19] LABS: Glucose Point of Care 191 mg/dL (70-110)
[2020-09-08] MEDS: HYDROcodone-acetaminophen 5-325 mg Tablet PO ×2 (12:49→20:30)
[2020-09-08] MEDS: gabapentin 300 mg Capsule 600 MG PO ×2 (15:06→20:31)
[2020-09-08] MEDS: propranolol 20 mg Tablet 10 MG PO ×2 (15:07→20:39)
[2020-09-08] MEDS: morphine 4 mg/mL SDV 1 mL 2 MG IVP (15:08)
--- NOTE | 2020-09-08 15:37 | ANE.PACU2 ---
Inpatient post-anesthesia follow up: Airway intact: Yes Vital signs: Temperature 98.3 F Pulse Rate 124 Respiratory Rate 18 Blood Pressure 120/76 Pulse Oximetry 98 Oxygen Delivery Me thod Nasal Cannula Oxygen Flow Rate 2 Fraction of Inspir ed Oxygen Hydration adequate: Yes Nausea and vomiting: No Pain level: 3 Mental status: Baseline Additional Comments: Required Narcan 0.2 mg IV
--- NOTE | 2020-09-08 15:38 | PC.RESP ---
SMOKING CESSATION AND PULMONARY REHAB INFORMATION SENT TO PATIENT.
[2020-09-08 17:27] LABS: Glucose Point of Care 166 mg/dL (70-110)
[2020-09-08] MEDS: docusate sodium 100 mg Capsule PO (18:27)
[2020-09-08] MEDS: famotidine 20 mg Tablet PO (18:27)
[2020-09-08] MEDS: ketorolac 30 mg/mL INJ IVP (18:27)
[2020-09-08] MEDS: trazodone 50 mg Tablet 75 MG PO (20:30)
[2020-09-08] MEDS: OLANZapine 10 mg TABLET 20 MG PO (20:31)
[2020-09-08 20:45] LABS: Glucose Point of Care 167 mg/dL (70-110)
[2020-09-08 23:11] LABS: Glucose Point of Care 148 mg/dL (70-110)
[2020-09-09] MEDS: HYDROcodone-acetaminophen 5-325 mg Tablet PO ×2 (00:42→06:10)
[2020-09-09 03:38] VITALS: BP 125/77; PULSE 97; RESP 18; TEMP 36.7; O2SAT 95
[2020-09-09] MEDS: ketorolac 30 mg/mL INJ IVP (03:44)
--- NOTE | 2020-09-09 05:09 | PC.NURSE ---
SHIFT SUMMARY Has rested for periods. Is easily awakened. Surgical dressing intact to medial low back and abd binder in place. IV infusing at 90ml/hr rate and will receive 3rd dose of antibiotics at 0700 this am. Pain has been controlled with po Hydrocodone and IV Toradol
[2020-09-09] MEDS: enoxaparin 40 mg/0.4 mL Syringe SUBCUT (06:10)
[2020-09-09] MEDS: FUROsemide 20 mg Tablet PO (06:10)
[2020-09-09 06:35] LABS: Glucose Point of Care 157 mg/dL (70-110)
[2020-09-09 07:45] VITALS: BP 123/80; PULSE 103; RESP 17; TEMP 37.2; O2SAT 97
--- NOTE | 2020-09-09 08:29 | PM.DCS ---
Discharge Providers Date of Admission: 09/08/20 10:50 Date of Discharge: September 09, 2020 Attending Provider at Admission: Dixon Saavedra MD Attending Provider at Discharge: Nirmal Hannon DO Primary Care Provider: WYATT Thomas Diagnoses at Discharge Discharge Diagnosis (1) Lumbar stenosis: Status: Acute (2) COPD (chronic obstructive pulmonary disease): Status: Acute Qualifiers: COPD type: unspecified COPD Qualified Code(s): J44.9 - Chronic obstructive pulmonary disease, unspecified (3) Hypertension: Status: Chronic Qualifiers: Hypertension type: essential hypertension Qualified Code(s): I10 - Essential (primary) hypertension (4) Diabetes mellitus: Status: Acute (5) Residual schizophrenia: Status: Acute Reason for Visit Reason for Visit: spondylolisthesis Hospital Course Hospital Course Patient is admitted on 09/08/2020 he had a two-level PLIF done. His stay was uneventful he was discharged on 09/09/2020 Physical Exam Narrative: EXAM NARRATIVE: Patient sitting up Ang[place] style in bed no pain in his legs incision clean dry and intact Urinary Catheter Management^: F: Cath Placed During This Visit: yes, but has since been removed by the nurse Urinary Catheter Date of Insertion: 09/08/20 Urinary Catheter Time of Insertion: 07:20 Date Urinary Catheter Removed: 09/08/20 Time Urinary Catheter Discontinued: 10:55 Discharge Data Data Completed and Pending: Completed Studies During Hospitalization Category Date Time Status XR lumbar spine 2 -3V* 38412 Routine Exams 09/08/20 Completed Labs from last 24 hours 09/09/20 09/08/20 09/08/20 06:24 20:42 17:07 POC Glucose 157 H 167 H 166 H 09/08/20 09/08/20 12:08 06:19 POC Glucose 191 H 148 H Vitals: Last Vital Signs Temp 98.9 F 09/09/20 07:45 Pulse 103 H 09/09/20 07:45 Resp 17 09/09/20 07:45 BP 123/80 09/09/20 07:45 Pulse Ox 97 09/09/20 07:45 Discharge Plan Discharge Patient Disposition: Home Condition: Stable Prescriptions: New hydrocodone-acetaminophen 5-325 mg tablet 1 - 2 tab PO .Q4-6H Qty: 40 RF: 0 Continued ondansetron HCl [Zofran] 4 mg tablet 4 mg PO Q6H PRN (Reason: nausea and vomiting) Qty: 20 RF: 0 Janumet XR 100-1,000 mg tablet, ER multiphase 24 hr See Rx Instructions .ROUTE .COMPLEX Qty: 90 RF: 1 lisinopril 10 mg tablet See Rx Instructions .ROUTE .COMPLEX Qty: 90 RF: 1 folic acid 1 mg tablet See Rx Instructions .ROUTE .COMPLEX Qty: 90 RF: 1 famotidine 20 mg tablet See Rx Instructions .ROUTE .COMPLEX Qty: 180 RF: 1 atorvastatin 40 mg tablet See Rx Instructions .ROUTE .COMPLEX Qty: 90 RF: 1 cetirizine [Zyrtec] 10 mg tablet 10 mg PO DAILY Qty: 30 RF: 2 trazodone 50 mg tablet 75 mg PO .HS Qty: 45 RF: 2 olanzapine [Zyprexa] 20 mg tablet 20 mg PO .HS Qty: 30 RF: 2 propranolol 10 mg tablet 10 mg PO TID Qty: 90 RF: 2 desvenlafaxine succinate [Pristiq] 50 mg tablet extended release 24 hr 50 mg PO DAILY Qty: 30 RF: 2 (DME) Diabetic Shoes See Rx Instructions .Route .MEDSUPPLY Qty: 1 RF: 0 nitroglycerin 0.4 mg tablet, sublingual 0.4 mg SUBLINGUAL Q5M PRN (Reason: Chest Pain) RF: 0 (DME) custom sole support See Rx Instructions .Route .MEDSUPPLY Qty: 1 RF: 0 (DME) diabetic shoes no inserts See Rx Instructions .Route .MEDSUPPLY Qty: 1 RF: 0 potassium chloride 10 mEq capsule, extended release 10 meq PO DAILY Qty: 14 RF: 0 gabapentin 600 mg tablet 600 mg PO TID Qty: 90 RF: 0 albuterol sulfate 2.5 mg /3 mL (0.083 %) solution for nebulization 2.5 mg INHALATION QID PRN (Reason: shortness of breath or wheezing) Qty: 75 RF: 0 (DME) crutch Misc See Rx Instructions .ROUTE .MEDSUPPLY Qty: 2 RF: 0 albuterol sulfate [Ventolin HFA] 90 mcg/actuation HFA aerosol inhaler See Rx Instructions .ROUTE .COMPLEX Qty: 18 RF: 5 oxycodone-acetaminophen [Percocet] 5-325 mg tablet 1 tab PO Q8H PRN (Reason: pain) 7 Days Qty: 21 RF: 0 furosemide [Lasix] 20 mg tablet 20 mg PO QAM Qty: 30 RF: 1 Discharge Orders: Discharge Order (Routine); Ordered 09/09/20 Ordered By: Nirmal Hannon Discharge Diet: Advance as tolerated Discharge Activity: Limit activity as instructed Patient Instructions: Opioid Safety Activity Restrictions/Additional Instructions: Thank you for [facility] for your care! The following is a list of instructions, from your provider, to follow upon your discharge to ensure you have the optimal recovery from your recent injury orsurgery. Follow-up care is a dennis part of your treatment and safety. Be sure to make and go to all appointments, and call your doctor if you are having problems. If you do not already have a follow-up appointment made, call Dr. Hannon office in the next 1-3 days to make follow up appointment for 1 weeks at [phone]. It is also a good idea to know your test results and keep a list of the medicines you take. Medications will be prescribed for you at your provider's discretion. These medications are to be used as instructed; if they are taken more often that prescribed they will not be refilled early and in most cases will not be refilled at all. > When a refill is needed,you should contact armando hodgson 2-3 business days before your prescription runs out. Medications will NOT be refilled by communications equipment supervisor providers after hours! > Many pain medications contain Tylenol (Acetaminophen). Do not consume more than 4,000 mg of Tylenol per day in total with any combination ofmedications. > Pain medications can cause constipation. Please use an over the counter stool softener as directed, while taking pain medications. Consulty our local pharmacist with questions or recommendations on stool softeners. If constipation persists, contact our office or your primary care provider. > While under our care,you are not to receive pain medications or other controlled substances from any other provider unless our office is notified and approves. Any attempts to do so will result in refusal to prescribe any further pain medications and possible dismissal from our practice. ? Your wound and/or dressing should remain clean and dry for 2 days after surgery. On postoperative day 7 > It is normal for there to be a small amount of discharge (bloody or blood tinged) present from a surgical wound for the first 1-3days. > The wound should be examined twice a day for signs of infection. Mild redness or bruising is to be expected but indications that an infection maybe starting would include; An increase in redness, swelling, or discharge, a foul odor present around the incision, and/or a fever greater than 101 ?F ? Showering is permitted, however we ask that you do not take a bath, sit in a whirlpool / Jacuzzi, or go swimming for 1 month. For only the first 2 days after surgery, lt wilt be necessary for you to cover your wound/dressing with plastic and tape to keep it dry. ? Walking is essential for the healing process after surgery. We would like you to slowly advance your walking. This should be done on relatively flat clear ground (inside or out) or can be done on a treadmill. Remember this goal does not have to happen all at once, slowly increase your distance and duration. This can be broken into more more than one walk per day as tolerated. Patients who walk as directed after surgery rarely require Physical Therapy. In the unlikely event this issue arises your provider will direct hospital staff to make the appropriate arrangements. ? No lifting over 5 pounds {a gallon of milk) or bending/twisting until further notice. Each of these activities places an unnecessary amount of stress onto the body and can impede the delicate healing process. > Instead of bending at the waist, keep your back straight and bend at the knees. > Instead of twisting your torso, keep your back straight and turn your entire body with your feet. ? You may sleep in any position which makes you comfortable. Many patients find comfort sleeping in a reclining chair. It is not abnormal to have difficulty sleeping for the first several weeks following your surgery. We recommend trying Benadry! or Tylenol PM as directed to help with your sleeping difficulties. Both medications are over the counter and available withoutprescription. ? NO SMOKING!!! Smoking dramatically increases the probability of developing postoperative wound infections. ? Common complaints after lumbar and/or thoracic spine surgery include, but are not limited to: numbness and/or tingling in the legs, pain around the incision and surrounding tissues, muscle spasms, or stiffness of the middle to low back. Contact our office if these symptoms persist or if an acute change occurs. ? No driving for the first 3-5days, and not while taking narcotics until seen at your follow-up appointment and cleared. There are no restrictions for riding on short trips, however if you take a longer trip, arrangements should be made to make regular stops to get out of the vehicle and stretch . ? Swelling is an unfortunate event that will take place with any surgery and is the primary source of your postoperative discomfort. While walking and regular approved activities helps control inflammation, there are additional steps you can take to minimizeswelling. > Place ice over the surgical site and surrounding tissue for twenty minutes, followed by applying a low/medium heat (heating pad) for an additional twenty minutes every 1-2 hours as needed for painrelief. > You may use of over the counter anti-inflammatory medications (Ibuprofen, Motrin, Aleve, Advil, etc) as directed on the package label. These types of medicines wm significantly reduce the amount of discomfort you experience after surgery from swelling. It should be noted that if you have and allergy to any of these medications, or a history of ulcers or kidney disease you should consult you primary care provider prior to starting these medications. Discharge Attestations Time Spent in Discharge Care*: less than 30 min Quality Metrics Clinical Quality Measures During this hospital stay, did patient experience: None Coding Level of Care Code Acute [facility] note Diagnoses Lumbar stenosis M48.061 COPD (chronic obstructive pulmonary disease) J44.9 COPD type: unspecified COPD Hypertension I10 Hypertension type: essential hypertension Diabetes mellitus E11.9 Residual schizophrenia F20.5
[2020-09-09] MEDS: propranolol 20 mg Tablet 10 MG PO (08:33)
[2020-09-09] MEDS: potassium chloride ER 10 mEq Tablet PO (08:33)
[2020-09-09] MEDS: atorvastatin 40 mg Tablet DOBHOFF (08:33)
[2020-09-09] MEDS: desvenlafaxine 50 mg Tablet PO (08:34)
[2020-09-09] MEDS: gabapentin 300 mg Capsule 600 MG PO (08:34)
[2020-09-09] MEDS: docusate sodium 100 mg Capsule PO (08:34)
[2020-09-09] MEDS: folic acid 1 mg Tablet PO (08:34)
[2020-09-09] MEDS: lisinopril 10 mg Tablet PO (08:34)
[2020-09-09] MEDS: cetirizine 10 mg Tablet PO (08:34)
[2020-09-09] MEDS: famotidine 20 mg Tablet PO (08:34)
--- NOTE | 2020-09-09 09:41 | P.PN_ITS ---
Subjective Subjective: Interval history: No issues overnight. Eager to be discharged. Medications: Reviewed: Yes Vitals/I&O/Wt Last Vital Signs Temp 98.9 F 09/09/20 07:45 Pulse 103 H 09/09/20 07:45 Resp 17 09/09/20 07:45 BP 123/80 09/09/20 07:45 Pulse Ox 97 09/09/20 07:45 09/08/20 09/09/20 09/09/20 22:59 06:59 14:59 Intake Total 2119.5 / 3069.5 770 / 3839.5 50 / 50 Output Total 1600 / 2000 Balance 2119.5 / 2669.5 -830 / 1839.5 50 / 50 Weight last 48 hrs Weight 95.254 kg Weight 95.254 kg Physical Exam Narrative: EXAM NARRATIVE: General exam is up and alert, no apparent distress Neck is supple no lymphadenopathy or thyromegaly Cardiovascular regular rate and rhythm without murmur Lungs clear Abdomen is soft obese nontender with positive bowel sounds. No obvious organomegaly. Binder is noted. Extremities no cyanosis clubbing or edema, cap refill brisk. No foot drop Urinary Catheter Management^: F: Cath Placed During This Visit: yes, but has since been removed by the nurse Urinary Catheter Date of Insertion: 09/08/20 Urinary Catheter Time of Insertion: 07:20 Date Urinary Catheter Removed: 09/08/20 Time Urinary Catheter Discontinued: 10:55 Data : 09/07/20 12:10 09/07/20 12:10 A&P Assessment and plan (1) Lumbar stenosis: Postoperative day #1 L5/S1 and L4/L5 fusion. Doing well. Home today Status: Acute (2) COPD (chronic obstructive pulmonary disease): Continue home medication, monitor for any exacerbation Status: Acute Qualifiers: COPD type: unspecified COPD Qualified Code(s): J44.9 - Chronic obstructive pulmonary disease, unspecified (3) Hypertension: Continue home medication Status: Chronic Qualifiers: Hypertension type: essential hypertension Qualified Code(s): I10 - Essential (primary) hypertension (4) Diabetes mellitus: Change diet to consistent carb Continue home medication Previous A1c's demonstrate excellent control. Status: Acute (5) Residual schizophrenia: Continue home medication Status: Acute Additional A&P Information Hyperlipidemia, continue home medicine GERD, continue home medicine Multiple other medical problems as outlined in past medical history. Full code Lovenox for DVT prophylaxis Attestations Medical Necessity Statement*: As per primary Coding Level of Care Code Acute [employer] [facility] Diagnoses Lumbar stenosis M48.061 COPD (chronic obstructive pulmonary disease) J44.9 COPD type: unspecified COPD Hypertension I10 Hypertension type: essential hypertension Diabetes mellitus E11.9 Residual schizophrenia F20.5
== END 2020-09-09 09:57 | disposition home or self-care (01) ==
LOC: MEDSURG 11:37
PROVIDERS: Anesthesiology; Admitting Provider Internal Medicine; PCP Nurse Practitioner Family; Visit Provider Orthopaedic Surgery
PROC: (CPT 22612; principal; 2020-09-08 07:00)
DX: M48.061 Spinal stenosis, lumbar region without neurogenic claudication (principal); J44.9 Chronic obstructive pulmonary disease, unspecified; I10 Essential (primary) hypertension; F20.5 Residual schizophrenia; G89.29 Other chronic pain; M54.9 Dorsalgia, unspecified; E11.42 Type 2 diabetes mellitus with diabetic polyneuropathy; Z79.891 Long term (current) use of opiate analgesic; K21.9 Gastro-esophageal reflux disease without esophagitis; E78.5 Hyperlipidemia, unspecified; E55.9 Vitamin D deficiency, unspecified; F17.210 Nicotine dependence, cigarettes, uncomplicated
CPT/HCPCS: 20930; 20939; 22633; 22634 ×2; 22842; 22853 ×2; 61783; 63047; 63048; 36415; 36416; 51702; 72100; 76000; 80053; 82962; 85025; 96372; 97116; 97161; 97530; C1713; C9359; G0378; J0690; J1100; J1644; J1650; J1815; J1885; J2250; J2270; J2310; J2405; J2704; J3010; J3370; J3490; J7030; J7611; J7644

== ENCOUNTER → 2020-10-26 07:18 | Outpatient (BNVA) | payer MEDICARE, MEDICAID, SELFPAY | PROVIDERS: PCP Nurse Practitioner Family; Visit Provider Nurse Practitioner | DX: F20.5 Residual schizophrenia (principal); F41.1 Generalized anxiety disorder | CPT/HCPCS: 72100; 99214 ==

== ENCOUNTER → 2020-11-01 14:49 | Outpatient (BNVA) | payer MEDICARE, MEDICAID, SELFPAY | PROVIDERS: PCP Nurse Practitioner Family; Visit Provider Nurse Practitioner Family | DX: J44.1 Chronic obstructive pulmonary disease with (acute) exacerbation (principal); Z11.52 Encounter for screening for COVID-19; L08.9 Local infection of the skin and subcutaneous tissue, unspecified; B96.89 Other specified bacterial agents as the cause of diseases classified elsewhere | CPT/HCPCS: 87635 ==

== ENCOUNTER → 2020-11-12 11:04 | Outpatient (BNVA) | payer MEDICARE, MEDICAID, SELFPAY | PROVIDERS: PCP Nurse Practitioner Family; Visit Provider Nurse Practitioner Family | DX: M25.552 Pain in left hip (principal); M25.562 Pain in left knee | CPT/HCPCS: 73502; 73562 ==

== ENCOUNTER → 2020-12-23 15:54 | Outpatient (BNVA) | payer MEDICARE, MEDICAID, SELFPAY | PROVIDERS: PCP Nurse Practitioner Family; Visit Provider Orthopaedic Surgery | DX: Z98.890 Other specified postprocedural states (principal); Z48.89 Encounter for other specified surgical aftercare | CPT/HCPCS: 72100 ==

== ENCOUNTER → 2021-01-10 08:47 | Outpatient (BNVA) | payer MEDICARE, MEDICAID, SELFPAY | PROVIDERS: PCP Nurse Practitioner Family; Visit Provider Nurse Practitioner Family | DX: E11.9 Type 2 diabetes mellitus without complications (principal); E55.9 Vitamin D deficiency, unspecified; M54.16 Radiculopathy, lumbar region; R60.9 Edema, unspecified; E78.5 Hyperlipidemia, unspecified; K21.9 Gastro-esophageal reflux disease without esophagitis; J44.9 Chronic obstructive pulmonary disease, unspecified; I10 Essential (primary) hypertension; F20.5 Residual schizophrenia; Z71.6 Tobacco abuse counseling; Z91.89 Other specified personal risk factors, not elsewhere classified | CPT/HCPCS: 80053; 80061; 82306; 83036; 83735; 85025 ==

== ENCOUNTER → 2021-01-17 08:50 | Outpatient (BNVA) | payer MEDICARE, MEDICAID, SELFPAY | PROVIDERS: PCP Nurse Practitioner Family; Visit Provider Nurse Practitioner Family | DX: E83.42 Hypomagnesemia (principal) | CPT/HCPCS: 80048; 83735 ==

== ENCOUNTER → 2021-01-18 09:58 | Outpatient (BNVA) | payer MEDICARE, MEDICAID, SELFPAY | PROVIDERS: PCP Nurse Practitioner Family; Visit Provider Nurse Practitioner | DX: F41.1 Generalized anxiety disorder (principal); F20.5 Residual schizophrenia | CPT/HCPCS: 99214 ==

== ENCOUNTER 2021-03-17 10:03 | Emergency (ER) | payer MEDICARE, MEDICAID, SELFPAY ==
[2021-03-17 10:11] VITALS: BP 122/83; PULSE 103; RESP 16; TEMP 36.2; O2SAT 95; BMI 28.0
--- NOTE | 2021-03-17 10:28 | CT_ITS ---
WS: [id number] CT LUMBAR SPINE, noncontrast. HISTORY: Lifting injury, pain w/ pain and tingling LEFT leg TECHNIQUE: Contiguous 2.5 mm axial imaging are performed. Sagittal and coronal reformats are submitte d and reviewed. All CT scans at [facility] use at least one of these dose optimization techni ques: automated exposure control; mA and/or kV adjustment per patient size (includes targeted exams w here dose is matched to clinical indication); or iterative reconstruction. IV contrast: None DLP: 2433.08 mGy.cm COMPARISON: Lumbar spine radiograph 12/23/2020 Status post posterior lumbar fusion from L4 to S1. Bilateral pedicle screws and vertical rods appear to be intact. No fractures. There is increased lucency around the sacral screws bilaterally. No lucen cy around the pedicle screws at L4 or L5. Interbody spacers at L4-5 and L5-S1. L5 anterolisthesis by 5.4 mm is stable. No fractures. L1-2: Normal. L2-3: Mild annular disc bulging. No focal disc protrusion. There is disc encroachment upon the ventra l thecal sac with no stenosis. L3-4: Artifact from the patient's fusion hardware encroaching into the central canal. No significant stenosis identified. No nerve root encroachment. There is very slight narrowing of the RIGHT foramen. L4-5: Large LEFT hemilaminectomy defect. Mild osteophytic ridging. There is mild asymmetric disc bulg ing centrally and to the RIGHT. There is a very small RIGHT foraminal disc protrusion which is causin g very slight contact but no displacement on the traversing RIGHT L5 nerve root. L5-S1: There is a very large LEFT hemilaminectomy defect. Within the surgical bed there is a soft tis job mass which is effacing fat and extending into the LEFT foramen. Fat within the LEFT foramen has b een completely effaced. This soft tissue density extends from the superior endplate of L5 inferiorly by approximately 3 cm and posterior to the S1 vertebral body. Visualized retroperitoneum is normal. CT/CT lumbar spine wo con* [id number] IMPRESSION: 1. Patient is status post posterior lumbar fusion from L4 to S1 bilaterally wi th interbody spacers at L4-5 and L5-S1. 2. Stable grade 1 anterolisthesis of L5. 3. Large LEFT hemilaminectomy defects at L4 and L5. 4. Increased lucency around the sacral screws suggesting loosening. This can b e followed up on serial CT examinations for progression. 5. There is extensive increased soft tissue beginning posterior to L5 and exte nding to S1 through the surgical site causing complete effacement of fat within the LEFT lateral thecal sac and the LEFT L5-S1 foramen. This all may be postsu rgical changes and fibrosis and scar tissue. No prior studies for comparison. C annot exclude associated disc protrusion. 6. Small RIGHT subarticular disc protrusion at L4-5 with minimal contact on th e traversing RIGHT L5 nerve root.
--- NOTE | 2021-03-17 10:30 | ED_ITS ---
HPI - Back Pain/Injury General: Chief Complaint: Back Pain/Injury Stated Complaint: BACK PAIN:SURGERY 09.04.20/HAVING PROBLEMS Time Seen by Provider: 03/17/21 10:18 History of Present Illness: HPI Narrative: Patient is a 40-year-old male comes to the ED with lower back pain. Patient has a history of chronic back pain and sees Dr. Hannon. He had an L4-S1 Fusion surgery back in August 2020. 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 He says the pain radiates down into his left leg and he has little bit of numbness tingling sensation to his left foot as well. It is painful for him to walk. He tried contacting Dr. Hannon's office but they were booked up today. He rates his pain currently as a 9 out of 10. Any movement makes pain worse. Denies any bladder or bowel incontinence, pelvic anesthesia or any weakness to extremities. Associated symptoms: Deny abdominal pain, chills, dysuria, fatigue, fever(s), hematuria, nausea or vomiting Review of Systems Const: Denies: fever(s), chills or fatigue Eyes: Denies: change in vision or eye discomfort ENMT: Denies: throat pain, odynophagia, nasal discharge or nasal congestion Card: Denies: chest pain, palpitations, edema, swelling of feet/ankles, d yspnea on exertion or orthopnea Resp: Denies: dyspnea, productive cough or non-productive cough GI: Denies: abdominal pain, nausea, vomiting, diarrhea, constipation or hematochezia : Denies: flank pain, difficulty urinating, dysuria or hematuria Musc: Reports: back pain; Denies: neck pain or extremity swelling Skin/Breast: Denies: rash or new lesions Neuro: Reports: sensory changes (Numbness tingling on left foot); Denies: headache(s), numbness in extremities or weakness in extremities [facility] ED PFSH: Medical History Chronic back pain COPD (chronic obstructive pulmonary disease) Diabetes mellitus Diabetic neuropathy Elevated LFTs Encounter for screening laboratory testing for COVID-19 virus Folate deficiency Generalized anxiety disorder GERD (gastroesophageal reflux disease) Hyperlipidemia Hypertension Peripheral edema Psychiatric care Residual schizophrenia Viral gastroenteritis Vitamin D deficiency Surgical History History of vasectomy Family History Other Diabetes Hypertension Denies family history of Cancer Social History Quit status (tobacco): has quit using tobacco Second hand smoke exposure: No Smoking risk assessment/counseling performed?: Yes Tobacco counseling given: counseling >3 minutes and other Alcohol intake: never Desire information about alcohol rehabilitation?: No Counseling given: No Desire information about substance/drug rehabilitation?: No Counseling given: No Adopted: No Caregiver/support person: No Lives independently: Yes Household members: family Housing: House Marital status: Single Number of children: 2 service: No Current occupational status: disabled History of recent travel: No Current gender identity: Male Physical Exam Const: COMMON NORMALS: no acute distress, patient oriented x3 and alert GENERAL APPEARANCE: cooperative; not comfortable (Patient appears a little stiff and uncomfortable due to pain) HENMT: COMMON NORMALS: normocephalic HEAD & SCALP: normocephalic MOUTH: Normal oral and palatal mucosa present THROAT: posterior oropharynx normal and uvula midline Neck/C-Spine: COMMON NORMALS: supple GENERAL: Yes normal visual inspection Resp: COMMON NORMALS: normal respiratory effort, No retractions, No use of accessory muscles and clear to auscultation bilaterally AUSCULTATION: clear to auscultation bilaterally Cardio: COMMON NORMALS: regular rate, regular rhythm, S1 normal heart sound present, S2 normal heart sound present, No gallops present (Cardio), No clicks present (Cardio), No murmurs present (Cardio) and Peripheral pulses 2+ t hroughout RATE: regular rate RHYTHM: regular rhythm HEART SOUNDS: S1 normal heart sound present and S2 normal heart sound present PERIPHERAL PULSES: Peripheral pulses 2+ throughout GI: COMMON NORMALS: Normal to inspection, nondistended, normoactive bowel sounds present, Soft to palpation, non-tender and no masses PALPATION: Yes Soft to palpation : COMMON NORMALS: Yes no CVA tenderness BLADDER/KIDNEY EXAM: Yes no CVA tenderness Back/Pelvis: COMMON NORMALS: no CVA tenderness LUMBAR SPINE/LOWER BACK: Yes pain with ROM, Yes lumbar spinal tenderness Lumbar spinal tenderness location: L3 and L4 and Yes paraspinal muscle tenderness Lumbar paraspinal muscle tenderness: left left lumbar paraspinal muscle tenderness: L3 and L4 Extremity: COMMON NORMALS: normal to inspection Neuro: COMMON NORMALS: patient oriented x3 and moves all extremities SENSORIUM/ORIENTATION: Yes alert Skin: GENERAL SKIN EXAM: dry skin Course Vital Signs: Vital signs: Vital Signs Temperature 97.2 F L 03/17/21 10:11 Pulse Rate 103 H 03/17/21 10:11 Respiratory Rate 16 03/17/21 10:11 Blood Pressure 122/83 03/17/21 10:11 Pulse Oximetry 95 03/17/21 10:11 MDM - Back Pain/Injury MDM Narrative: Medical decision making narrative: Patient is a 40-year-old male comes to the ED with lower back pain. Patient has a history of chronic back pain and sees Dr. Hannon. He had a spinal fusion surgery of L4-S1 approximately 6 months ago. 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 Describes the pain as sharp and radiates down the left leg. He also endorses having some numbness/tingling to left foot as well and pain when he walks denies any cauda equina symptoms. Vitals stable. Patient has left-sided paraspinal muscle tenderness of the lumbar spine. L4 spinal tenderness as well. CT of lumbar spine showed status post lumbar fusion of L4-S1. CT did note that there is some findings suggestive of possible screws loosening, but recommended serial CT follow-up for further evaluation and progression. I placed an order with case management for patient be referred back to Dr. Hannon for follow-up and further evaluation of lower back pain. Patient was given morphine, Norflex and Decadron while here in the ED and is symptoms did improve. He was discharged home with a prescription for hydrocodone, steroids and a muscle relaxer. He was told rehabilitation caseworker will contact them next several days to set up an appointment with Dr. Hannon for follow-up. Return ED precautions given. Patient understood agree with plan. Imaging Data^: Other CT: Attestation: I personally reviewed and interpreted this imaging study as follows: Radiologist's impression: [facility] [address] [place] [address] CT Scan Report Signed Patient: Aries Gutierrez Unit #: [id number] : [id number] Age/Sex: 40 / M ADM Date: 03/17/21 Loc: ER Room/Bed: Attending Dr: Ordering Provider/Ordering MD: Juan Diego Corado Date of Service: 03/17/21 Procedure(s): CT lumbar spine wo con* [id number] Accession Number(s): [id number] Report Number: [id number] WS: [id number] CT LUMBAR SPINE, noncontrast. HISTORY: Lifting injury, pain w/ pain and tingling LEFT leg TECHNIQUE: Contiguous 2.5 mm axial imaging are performed. Sagittal and coronal reformats are submitted and reviewed. All CT scans at [facility] use at least one of these dose optimization techniques: automated exposure control; mA and/or kV adjustment per patient size (includes targeted exams where dose is matched to clinical indication); or iterative reconstruction. IV contrast: None DLP: 2433.08 mGy.cm COMPARISON: Lumbar spine radiograph 12/23/2020 Status post posterior lumbar fusion from L4 to S1. Bilateral pedicle screws and vertical rods appear to be intact. No fractures. There is increased lucency around the sacral screws bilaterally. No lucency around the pedicle screws at L4 or L5. Interbody spacers at L4-5 and L5-S1. L5 anterolisthesis by 5.4 mm is stable. No fractures. L1-2: Normal. L2-3: Mild annular disc bulging. No focal disc protrusion. There is disc encroachment upon the ventral thecal sac with no stenosis. L3-4: Artifact from the patient's fusion hardware encroaching into the central canal. No significant stenosis identified. No nerve root encroachment. There is very slight narrowing of the RIGHT foramen. L4-5: Large LEFT hemilaminectomy defect. Mild osteophytic ridging. There is mild asymmetric disc bulging centrally and to the RIGHT. There is a very small RIGHT foraminal disc protrusion which is causing very slight contact but no displacement on the traversing RIGHT L5 nerve root. L5-S1: There is a very large LEFT hemilaminectomy defect. Within the surgical bed there is a soft tissue mass which is effacing fat and extending into the LEFT foramen. Fat within the LEFT foramen has been completely effaced. This soft tissue density extends from the superior endplate of L5 inferiorly by approximately 3 cm and posterior to the S1 vertebral body. Visualized retroperitoneum is normal. CT/CT lumbar spine wo con* [id number] IMPRESSION: 1. Patient is status post posterior lumbar fusion from L4 to S1 bilaterally with interbody spacers at L4-5 and L5-S1. 2. Stable grade 1 anterolisthesis of L5. 3. Large LEFT hemilaminectomy defects at L4 and L5. 4. Increased lucency around the sacral screws suggesting loosening. This can be followed up on serial CT examinations for progression. 5. There is extensive increased soft tissue beginning posterior to L5 and extending to S1 through the surgical site causing complete effacement of fat within the LEFT lateral thecal sac and the LEFT L5-S1 foramen. This all may be postsurgical changes and fibrosis and scar tissue. No prior studies for comparison. Cannot exclude associated disc protrusion. 6. Small RIGHT subarticular disc protrusion at L4-5 with minimal contact on the traversing RIGHT L5 nerve root. Dictated By: Gemini Felton DO Signed By: Gemini Felton DO Signed Date/Time: 03/17/21 1131 DD/ 1113 Discharge Plan Discharge Patient Disposition: Home Clinical Impression: Left lumbar radiculopathy Condition: Stable Prescriptions: New prednisone 50 mg tablet 50 mg PO DAILY 7 Days Qty: 7 RF: 0 ibuprofen 800 mg tablet 800 mg PO Q8H PRN (Reason: pain) Qty: 30 RF: 0 cyclobenzaprine 10 mg tablet 10 mg PO BID PRN (Reason: muscle spasm) Qty: 30 RF: 0 No Action ondansetron HCl [Zofran] 4 mg tablet 4 mg PO Q6H PRN (Reason: nausea and vomiting) Qty: 20 RF: 0 folic acid 1 mg tablet See Rx Instructions .ROUTE .COMPLEX Qty: 90 RF: 1 cetirizine [Zyrtec] 10 mg tablet 10 mg PO DAILY Qty: 30 RF: 2 (DME) Diabetic Shoes See Rx Instructions .Route .MEDSUPPLY Qty: 1 RF: 0 hydrocodone-acetaminophen 5-325 mg tablet 1 - 2 tab PO .Q4-6H PRN (Reason: pain) 7 Days Qty: 40 RF: 0 mupirocin 2 % ointment 1 applic topical BID 10 Days Qty: 15 RF: 0 albuterol sulfate [Ventolin HFA] 90 mcg/actuation HFA aerosol inhaler See Rx Instructions .ROUTE .COMPLEX Qty: 18 RF: 5 albuterol sulfate 2.5 mg /3 mL (0.083 %) solution for nebulization 2.5 mg INHALATION QID PRN (Reason: shortness of breath or wheezing) Qty: 75 RF: 2 budesonide-formoterol [Symbicort] 80-4.5 mcg/actuation HFA aerosol inhaler 2 puff inhalation BID Qty: 10.2 RF: 3 methylprednisolone [Medrol (Brock)] 4 mg tablets,dose pack See Rx Instructions PO PER PKG DIR Qty: 21 RF: 0 Janumet XR 100-1,000 mg tablet, ER multiphase 24 hr See Rx Instructions .ROUTE .COMPLEX Qty: 90 RF: 1 famotidine 20 mg tablet See Rx Instructions .ROUTE .COMPLEX Qty: 180 RF: 1 nitroglycerin 0.4 mg tablet, sublingual 0.4 mg SUBLINGUAL Q5M PRN (Reason: Chest Pain) RF: 0 (DME) custom sole support See Rx Instructions .Route .MEDSUPPLY Qty: 1 RF: 0 (DME) diabetic shoes no inserts See Rx Instructions .Route .MEDSUPPLY Qty: 1 RF: 0 promethazine 25 mg tablet 25 mg PO Q6H PRN (Reason: nausea and vomiting) Qty: 30 RF: 0 Chantix Starting Month Box 0.5 mg (11)- 1 mg (42) tablets,dose pack See Rx Instructions PO PER PKG DIR Qty: 53 RF: 0 doxycycline hyclate 100 mg tablet 100 mg PO BID Qty: 20 RF: 0 (DME) crutch Misc See Rx Instructions .ROUTE .MEDSUPPLY Qty: 2 RF: 0 oxycodone-acetaminophen [Percocet] 7.5-325 mg tablet 1 tab PO .q4-6 PRN (Reason: pain) 7 Days Qty: 40 RF: 0 trazodone 50 mg tablet 75 mg PO .HS Qty: 45 RF: 2 fluticasone propionate [Flonase Allergy Relief] 50 mcg/actuation spray,suspension 2 spray intranasal DAILY Qty: 16 RF: 0 atorvastatin 80 mg tablet See Rx Instructions .ROUTE .COMPLEX Qty: 90 RF: 0 Farxiga 10 mg tablet 10 mg PO QAM Qty: 90 RF: 0 gabapentin 600 mg tablet 600 mg PO TID Qty: 90 RF: 2 desvenlafaxine succinate [Pristiq] 50 mg tablet extended release 24 hr 50 mg PO DAILY Qty: 30 RF: 2 trazodone 100 mg tablet 100 mg PO .HS Qty: 30 RF: 2 olanzapine [Zyprexa] 20 mg tablet 20 mg PO .HS Qty: 30 RF: 2 magnesium oxide 400 mg (241.3 mg magnesium) tablet 400 mg PO DAILY Qty: 30 RF: 2 potassium chloride 10 mEq tablet extended release 10 meq PO DAILY Qty: 30 RF: 2 lisinopril 10 mg tablet See Rx Instructions .ROUTE .COMPLEX Qty: 90 RF: 1 furosemide 40 mg tablet 40 mg PO QAM Qty: 90 RF: 1 propranolol 10 mg tablet 10 mg PO TID Qty: 90 RF: 2 diclofenac sodium 75 mg tablet,delayed release (DR/EC) See Rx Instructions .ROUTE .COMPLEX Qty: 60 RF: 1 Discharge Orders: Discharge ED (Routine); Ordered 03/17/21 Ordered By: Juan Diego Corado Referrals: Jerri Antonio FNP [Primary Care Provider] - Discharge Diet: Regular Discharge Activity: Limit activity as instructed Patient Instructions: Lumbar Radiculopathy (ED), Opioid Safety Activity Restrictions/Additional Instructions: Follow-up with medical provider as directed. Case management should be contacting you in the next several days set up an appointment with Dr. Hannon's office. Take medications as prescribed. Limit any lifting and rest for the next several days. Apply cold pack or heat on lower back to elbow symptoms. Return to the ER or your medical provider if condition worsens. Please read and understand discharge instructions. Thank you for choosing [facility] for your healthcare needs today. Please realize this is an emergency room and that we are providing you with a medical screening exam and this may not be complete and all inclusive of all the testing and or work up that you may need to determine your ailment or severity of your illness. It is very important that you follow up as instructed or that you return to the Emergency Department should you have concerns or if your condition changes or worsens in any way. Coding Level of Care Code ED Casting Room Helper for Rona Fwd Exam Comprehensive
[2021-03-17] MEDS: dexamethasone 10 mg/mL INJ IM (11:22)
[2021-03-17] MEDS: morphine 4 mg/mL SDV 1 mL IM (11:22)
[2021-03-17] MEDS: orphenadrine 30 mg/mL Inj 2 mL 60 MG IM (11:22)
--- NOTE | 2021-03-18 14:14 | DCPLANNER ---
merchandising execution manager had message to schedule a follow up appointment for patient with ortho. merchandising execution manager called the ortho clinic, spoke with Eneida, gave clinic patients information. merchandising execution manager was told that patients information would be printed and reviewed. Clinic will call patient with appointment information.
--- NOTE | 2021-03-25 07:50 | DCPLANNER ---
Patient has a follow up appointment scheduled for Monday, March 29, 2021 at 11:[address] Hannon at [facility]. Clinic will call patient with appointment information.
--- NOTE | 2021-03-31 15:18 | DCPLANNER ---
Patient had a follow up appointment scheduled for 03.29.21 with ortho - patient did attend appointment.
== END 2021-03-17 13:19 | disposition home or self-care (01) ==
PROVIDERS: Emergency Provider Physician Assistant; PCP Nurse Practitioner Family
DX: M54.16 Radiculopathy, lumbar region (principal); J44.9 Chronic obstructive pulmonary disease, unspecified; E11.40 Type 2 diabetes mellitus with diabetic neuropathy, unspecified; E78.5 Hyperlipidemia, unspecified; I10 Essential (primary) hypertension; Z87.891 Personal history of nicotine dependence
CPT/HCPCS: 72131; 96372; 99283; J1100; J2270; J2360

== ENCOUNTER → 2021-03-22 08:23 | Outpatient (BNVA) | payer MEDICARE, MEDICAID, SELFPAY | PROVIDERS: PCP Nurse Practitioner Family; Visit Provider Nurse Practitioner | DX: F41.1 Generalized anxiety disorder (principal); F20.5 Residual schizophrenia | CPT/HCPCS: 99214 ==

== ENCOUNTER → 2021-03-29 10:28 | Outpatient (BNVA) | payer MEDICARE, MEDICAID, SELFPAY | PROVIDERS: PCP Nurse Practitioner Family; Visit Provider Orthopaedic Surgery | DX: M43.07 Spondylolysis, lumbosacral region (principal) | CPT/HCPCS: 72100 ==

== ENCOUNTER → 2021-04-05 11:01 | Outpatient (BNVA) | payer MEDICARE, MEDICAID, SELFPAY | PROVIDERS: PCP Nurse Practitioner Family; Visit Provider Orthopaedic Surgery | DX: Z01.812 Encounter for preprocedural laboratory examination (principal); Z20.822 Contact with and (suspected) exposure to COVID-19 | CPT/HCPCS: 87635 ==

== ENCOUNTER → 2021-05-20 14:05 | Outpatient (BNVA) | payer MEDICARE, MEDICAID, SELFPAY | PROVIDERS: PCP Nurse Practitioner Family; Visit Provider Orthopaedic Surgery | DX: Z20.822 Contact with and (suspected) exposure to COVID-19 (principal) | CPT/HCPCS: 87635 ==

== ENCOUNTER 2021-05-29 14:09 | Emergency (ER) | payer MEDICARE, MEDICAID, SELFPAY ==
[2021-05-29 14:44] VITALS: BP 111/76; PULSE 87; RESP 15; TEMP 36.9; O2SAT 97; BMI 26.6
[2021-05-29 15:08] VITALS: BP 143/89; PULSE 91; RESP 16; TEMP 36.9; O2SAT 98
--- NOTE | 2021-05-29 15:14 | XRR_ITS ---
PROCEDURE INFORMATION: Exam: XR Lumbosacral Spine Exam date and time: 05/29/2021 3:14 PM Age: 40 years old Clinical indication: Injury or trauma; Blunt trauma (contusions or hematomas); Prior surgery; Surgery date: 6+ months; Surgery type: Fusion; Patient HX: C/O lbp after trip and fall last night; Additional info: Fall with lower back pain TECHNIQUE: Imaging protocol: XR of the lumbosacral spine. Views: 2 or 3 views. COMPARISON: CR XR lumbar spine 2-3V* [id number] 03/29/2021 10:35 AM FINDINGS: Bones/joints: Surgical hardware is seen with transpedicular screws and rods in the posterior elements L4, L5, and S1. Laminectomy defect is seen at the L5 level No acute fracture. Normal alignment. Similar findings seen comparing to prior examination. Soft tissues: Unremarkable. XR/XR lumbar spine 2-3V* [id number] IMPRESSION: 1. Stable posterior lumbar fusion where hardware. 2. Status post laminectomy 3. Otherwise No acute findings.
--- NOTE | 2021-05-29 15:15 | ED_ITS ---
HPI - Fall General: Chief Complaint: Fall Stated Complaint: Fell last pm had back surgery Time Seen by Provider: 05/29/21 15:04 History of Present Illness: Patient is a 40-year-old male comes to the ED with lower back pain. Patient has a history of chronic lower back pain and is a pa tient of Dr. Hannon. He states that last night he tripped over a rug and he fell down. Denies any head trauma. He describes falling down to his right knee and it caused a jarring feeling in his lower back. He now has 8 out of 10 lower back pain that radiates down to both right and left legs. He currently has a prescription for hydrocodone fives that he takes at home for pain. He took 2 hydrocodone's this morning to help with pain and had no relief. Associated symptoms-after fall: Denies abdominal pain, chest pain, headache(s), hematuria or neck pain Review of Systems Const: Denies: fever(s), chills or fatigue Eyes: Denies: change in vision or eye discomfort ENMT: Denies: throat pain, odynophagia, nasal discharge or nasal congestion Card: Denies: chest pain, palpitations, edema, swelling of feet/ankles, dyspnea on exertion or orthopnea Resp: Denies: dyspnea, productive cough or non-productive cough GI: Denies: abdominal pain, nausea, vomiting, diarrhea, constipation or hematochezia : Denies: flank pain, difficulty urinating, dysuria or hematuria Musc: Reports: back pain; Denies: neck pain or extremity swelling Skin/Breast: Denies: rash or new lesions Neuro: Denies: headache(s), numbness in extremities or weakness in extremities PFSH ED PFSH: Medical History Chronic back pain COPD (chronic obstructive pulmonary disease) Diabetes mellitus Diabetic neuropathy Elevated LFTs Encounter for screening laboratory testing for COVID-19 virus Folate deficiency Generalized anxiety disorder GERD (gastroesophageal reflux disease) Hyperlipidemia Hypertension Peripheral edema Psychiatric care Residual schizophrenia Viral gastroenteritis Vitamin D deficiency Surgical History History of vasectomy Family History Other Diabetes Hypertension Denies family history of Cancer Social History Smoking and tobacco status: current every day smoker cigarettes Packs smoked per day: 0.5 Years cigarettes smoked: 16 Quit status (tobacco): has quit using tobacco Second hand smoke exposure: No Smoking risk assessment/counseling performed?: Yes Tobacco counseling given: counseling >3 minutes and other Alcohol intake: never Desire information about alcohol rehabilitation?: No Counseling given: No Desire information about substance/drug rehabilitation?: No Counseling given: No Adopted: No Caregiver/support person: No Lives independently: Yes Household members: family Housing: House Marital status: Single Number of children: 2 service: No Current occupational status: disabled History of recent travel: No Current gender identity: Male Physical Exam Const: COMMON NORMALS: no acute distress, patient oriented x3 and healthy appearing GENERAL APPEARANCE: cooperative and comfortable HENMT: COMMON NORMALS: normocephalic HEAD & SCALP: normocephalic MOUTH: Normal oral and palatal mucosa present THROAT: posterior oropharynx normal and uvula midline Neck/C-Spine: COMMON NORMALS: supple GENERAL: Yes normal visual inspection Resp: COMMON NORMALS: normal respiratory effort, No retractions, No use of accessory muscles and clear to auscultation bilaterally AUSCULTATION: clear to auscultation bilaterally Cardio: COMMON NORMALS: regular rate, regular rhythm, S1 normal heart sound present, S2 normal heart sound present, No gallops present (Cardio), No clicks present (Cardio), No murmurs present (Cardio) and Peripheral pulses 2+ throughout RATE: regular rate RHYTHM: regular rhythm HEART SOUNDS: S1 normal heart sound present and S2 normal heart sound present PERIPHERAL PULSES: Peripheral pulses 2+ throughout GI: COMMON NORMALS: Normal to inspection, nondistended, normoactive bowel sounds present, Soft to palpation, non-tender and no masses PALPATION: Yes Soft to palpation : COMMON NORMALS: Yes no CVA tenderness BLADDER/KIDNEY EXAM: Yes no CVA tenderness Back/Pelvis: COMMON NORMALS: no CVA tenderness LUMBAR SPINE/LOWER BACK: Yes pain with ROM, Yes lumbar spinal tenderness and Yes paraspinal muscle tenderness Lumbar paraspinal muscle tenderness: bilateral Extremity: COMMON NORMALS: normal to inspection Neuro: COMMON NORMALS: patient oriented x3 and moves all extremities Skin: GENERAL SKIN EXAM: dry skin Course Vital Signs: Vital signs: Vital Signs Temperature 98.2 F 05/29/21 16:19 Pulse Rate 87 05/29/21 16:19 Respiratory Rate 16 05/29/21 16:19 Blood Pressure 125/79 05/29/21 16:19 Pulse Oximetry 95 05/29/21 16:19 MDM - Fall Medical Decision Making Patient is a 40-year-old male comes to the ED with chronic back pain. He is followed by Dr. Avendaño currently. Patient had a fall earlier today and having increased lower back pain with pain that radiates down both legs. Denies any cauda equina symptoms. X-ray of lumbar spine showed stable posterior lumbar fusion with hardware in place no other acute fractures or findings noted. He was diagnosed with lumbar radiculopathy.He was given a dose of Norflex, morphine Solu-Medrol here in the ED and his pain improved. Patient was discharged home with a prescription for Flexeril and prednisone. He was told to follow-up with Dr. Hannon at next scheduled appointment. Lab Data Radiology Impressions Lumbar Spine X-Ray 05/29/21 15:14 IMPRESSION: 1. Stable posterior lumbar fusion where hardware. 2. Status post laminectomy 3. Otherwise No acute findings. Discharge Plan Discharge Patient Disposition: Home Clinical Impression: Lumbar radiculopathy Condition: Stable Prescriptions: New prednisone 20 mg tablet 20 mg PO BID 7 Days Qty: 14 0RF cyclobenzaprine 10 mg tablet 10 mg PO BID PRN (Reason: muscle spasm) Qty: 20 0RF No Action folic acid 1 mg tablet See Rx Instructions .ROUTE .COMPLEX Qty: 90 1RF Dose Instruction: TAKE ONE TABLET BY MOUTH DAILY Rx Instructions: TAKE ONE TABLET BY MOUTH DAILY cetirizine [Zyrtec] 10 mg tablet 10 mg PO DAILY Qty: 30 2RF (DME) Diabetic Shoes See Rx Instructions .Route .MEDSUPPLY Qty: 1 0RF Rx Instructions: As directed albuterol sulfate 2.5 mg /3 mL (0.083 %) solution for nebulization 2.5 mg INHALATION QID PRN (Reason: shortness of breath or wheezing) Qty: 75 2RF Janumet XR 100-1,000 mg tablet, ER multiphase 24 hr See Rx Instructions .ROUTE .COMPLEX Qty: 90 1RF Dose Instruction: TAKE ONE TABLET BY MOUTH DAILY Rx Instructions: TAKE ONE TABLET BY MOUTH DAILY famotidine 20 mg tablet See Rx Instructions .ROUTE .COMPLEX Qty: 180 1RF Dose Instruction: TAKE ONE TABLET BY MOUTH TWICE DAILY Rx Instructions: TAKE ONE TABLET BY MOUTH TWICE DAILY takes as needed nitroglycerin 0.4 mg tablet, sublingual 0.4 mg SUBLINGUAL Q5M PRN (Reason: Chest Pain) 0RF (DME) custom sole support See Rx Instructions .Route .MEDSUPPLY Qty: 1 0RF Rx Instructions: As directed by courtney (DME) diabetic shoes no inserts See Rx Instructions .Route .MEDSUPPLY Qty: 1 0RF Rx Instructions: As directed promethazine 25 mg tablet 25 mg PO Q6H PRN (Reason: nausea and vomiting) Qty: 30 0RF albuterol sulfate [Ventolin HFA] 90 mcg/actuation HFA aerosol inhaler See Rx Instructions .ROUTE .COMPLEX Qty: 18 5RF Dose Instruction: INHALE TWO PUFFS INTO LUNGS EVERY 6 HOURS NEEDED FOR SHORTNESS OF BREATH OR WHEEZING Rx Instructions: INHALE TWO PUFFS INTO LUNGS EVERY 6 HOURS NEEDED FOR SHORTNESS OF BREATH OR WHEEZING (DME) crutch Misc See Rx Instructions .ROUTE .MEDSUPPLY Qty: 2 0RF Rx Instructions: As directed fluticasone propionate [Flonase Allergy Relief] 50 mcg/actuation spray,suspension 2 spray intranasal DAILY Qty: 16 0RF Rx Instructions: administer into each nostril furosemide 40 mg tablet 40 mg PO QAM Qty: 90 0RF lisinopril 10 mg tablet 10 mg PO DAILY Qty: 90 0RF magnesium oxide 400 mg (241.3 mg magnesium) tablet See Rx Instructions .ROUTE .COMPLEX Qty: 30 0RF Dose Instruction: TAKE ONE TABLET BY MOUTH DAILY Rx Instructions: TAKE ONE TABLET BY MOUTH DAILY potassium chloride 10 mEq tablet extended release See Rx Instructions .ROUTE .COMPLEX Qty: 30 2RF Dose Instruction: TAKE ONE TABLET BY MOUTH DAILY Rx Instructions: TAKE ONE TABLET BY MOUTH DAILY desvenlafaxine succinate [Pristiq] 50 mg tablet extended release 24 hr 50 mg PO DAILY Qty: 30 2RF olanzapine [Zyprexa] 20 mg tablet 20 mg PO .HS Qty: 30 2RF propranolol 10 mg tablet 10 mg PO TID Qty: 90 2RF trazodone 100 mg tablet 100 mg PO .HS Qty: 30 2RF atorvastatin 80 mg tablet See Rx Instructions .ROUTE .COMPLEX Qty: 30 0RF Dose Instruction: TAKE ONE TABLET BY MOUTH DAILY Rx Instructions: TAKE ONE TABLET BY MOUTH DAILY Farxiga 10 mg tablet See Rx Instructions .ROUTE .COMPLEX Qty: 30 0RF Dose Instruction: TAKE ONE TABLET BY MOUTH EVERY MORNING Rx Instructions: TAKE ONE TABLET BY MOUTH EVERY MORNING hydrocodone-acetaminophen 5-325 mg tablet 1 tab PO PRN PRN (Reason: Pain) 7 Days Qty: 30 0RF budesonide-formoterol [Symbicort] 80-4.5 mcg/actuation HFA aerosol inhaler See Rx Instructions .ROUTE .COMPLEX Qty: 10.2 0RF Dose Instruction: INHALE 2 PUFFS INTO LUNGS TWICE DAILY Rx Instructions: INHALE 2 PUFFS INTO LUNGS TWICE DAILY diclofenac sodium 75 mg tablet,delayed release (DR/EC) See Rx Instructions .ROUTE .COMPLEX Qty: 60 0RF Dose Instruction: TAKE ONE TABLET BY MOUTH TWICE DAILY NEEDED FOR PAIN Rx Instructions: TAKE ONE TABLET BY MOUTH TWICE DAILY NEEDED FOR PAIN gabapentin 600 mg tablet See Rx Instructions .ROUTE .COMPLEX Qty: 90 0RF Dose Instruction: TAKE ONE TABLET BY MOUTH THREE TIMES DAILY Rx Instructions: TAKE ONE TABLET BY MOUTH THREE TIMES DAILY ibuprofen 800 mg tablet 800 mg PO Q8H PRN (Reason: pain) Qty: 30 0RF Discharge Orders: Discharge ED (Routine); Ordered 05/29/21 Ordered By: Juan Diego Corado Referrals: Jerri Antonio FNP [Primary Care Provider] - Discharge Diet: Regular Discharge Activity: Increase activity as tolerated Patient Instructions: Lumbar Radiculopathy (ED) Activity Restrictions/Additional Instructions: Follow-up with medical provider as directed in 7 to 10 days for evaluation. Take medications as prescribed. Apply cold pack or heat on lower back to help with symptoms. Return to the ER or your medical provider if condition worsens. Please read and understand discharge instructions. Thank you for choosing [facility] for your healthcare needs today. Danielle saini realize this is an emergency room and that we are providing you with a medical screening exam and this may not be complete and all inclusive of all the testing and or work up that you may need to determine your ailment or severity of your illness. It is very important that you follow up as instructed or that you return to the Emergency Department should you have concerns or if your condition changes or worsens in any way. Coding Level of Care Code ED Galley Stripper for Chg Fwd Exam Comprehensive
[2021-05-29 15:49] VITALS: RESP 16
[2021-05-29] MEDS: morphine 4 mg/mL SDV 1 mL IM (15:49)
[2021-05-29] MEDS: orphenadrine 30 mg/mL Inj 2 mL 60 MG IM (15:49)
[2021-05-29 16:18] VITALS: BP 125/79; PULSE 87; RESP 16; TEMP 36.8; O2SAT 95
[2021-05-29 16:19] VITALS: BP 125/79; PULSE 87; RESP 16; TEMP 36.8; O2SAT 95
== END 2021-05-29 16:15 | disposition home or self-care (01) ==
PROVIDERS: Emergency Provider Physician Assistant; PCP Nurse Practitioner Family
DX: M54.16 Radiculopathy, lumbar region (principal); J44.9 Chronic obstructive pulmonary disease, unspecified; E11.40 Type 2 diabetes mellitus with diabetic neuropathy, unspecified; E78.5 Hyperlipidemia, unspecified; I10 Essential (primary) hypertension; F17.210 Nicotine dependence, cigarettes, uncomplicated
CPT/HCPCS: 72100; 96372; 99283; J2270; J2360; J2930

== ENCOUNTER → 2021-05-30 10:02 | Outpatient (BNVA) | payer MEDICARE, MEDICAID, SELFPAY | PROVIDERS: PCP Nurse Practitioner Family; Visit Provider Orthopaedic Surgery | DX: Z20.822 Contact with and (suspected) exposure to COVID-19 (principal); M54.16 Radiculopathy, lumbar region; Z01.812 Encounter for preprocedural laboratory examination | CPT/HCPCS: 87635 ==

== ENCOUNTER 2021-06-01 14:26 | Inpatient (IN) | payer MEDICARE, MEDICAID, SELFPAY ==
[2021-05-20 10:57] VITALS: BMI 27.1
--- NOTE | 2021-05-20 14:03 | ANES.PREANE2 ---
Pre-Anesthetic Assessment Height/Weight: Height 1.75 m Weight 83.461 kg Preop Diagnosis: Lumbar stenosis and Spondylolisthesis Operation Date: 05/25/21 07:00 Proposed Procedures p Posterior Lumbar Interbody Fusion Revision(Not Applicable) - Nirmal Hannon DO Familial anesthetic complications: None Was Beta Bryanna taken within 24 hours: Yes (Patient instructed to take propanalol on day of surgery) Was Clonidine taken within 24 hours: N/A Social Tobacco Exam alert, oriented x 3, clear to auscultation bilaterally and regular rate & rhythm Airway Submandibular: within normal limits Cervical ROM: within normal limits Mallampati: Class III Dentition: false Pulmonary Chronic Obstructive Pulmonary Disease CV/HEM Hypertension BPH GI Gastroesophageal Reflux Disease Metabolic Diabetes Mellitus Musc/skel Lower Back Pain and 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 We discussed risk and benefits of general anesthesia including PONV, sore throat (sometimes severe), corneal abrasion, positioning and peripheral nerve injuries, life threatening allergic reaction, post operative ICU admission requiring prolonged intubation, stroke, heart attack, , and rare incidences of recall. Patient consents to proceed with general anesthesia. Risk of > 500 ml blood loss (7ml/kg in children): Yes, adequate IV access and fluids planned Other Pertinent Information CBC and BMP ordered for day of surgery Medications/Allergies Home Medications Medication Instructions Recorded Confirmed Last Taken Type nitroglycerin 0.4 mg sublingual 0.4 mg SUBLINGUAL Q5M PRN 05/09/19 05/20/21 Unknown History tablet crutch #2 ea 05/05/20 05/13/21 Unknown Rx cetirizine 10 mg tablet (Zyrtec) 10 mg PO DAILY #30 tab 06/08/20 05/20/21 Unknown Rx folic acid 1 mg tablet See Rx Instructions .ROUTE 06/08/20 05/20/21 Unknown Rx .COMPLEX #90 tab custom sole support #1 ea 07/14/20 05/13/21 Unknown Rx diabetic shoes no inserts #1 ea 07/14/20 05/13/21 Unknown Rx Diabetic Shoes #1 ea 08/13/20 05/13/21 Unknown Rx fluticasone propionate 50 2 spray INTRANASAL DAILY #16 g 11/04/20 05/20/21 Unknown Rx mcg/actuation nasal spray,suspension (Flonase Allergy Relief) albuterol sulfate 2.5 mg (3 mL) INHALATION QID PRN 11/12/20 05/20/21 Unknown Rx #75 ml promethazine 25 mg tablet 25 mg PO Q6H PRN #30 tab 12/16/20 05/20/21 Unknown Rx famotidine 20 mg tablet See Rx Instructions .ROUTE 01/10/21 05/20/21 Unknown Rx .COMPLEX #180 tab sitagliptin 100 mg-metformin ER See Rx Instructions .ROUTE 01/10/21 05/20/21 Unknown Rx 1,000 mg tablet,extended .COMPLEX #90 tab [id number] mp (Janumet XR) diclofenac sodium 75 mg See Rx Instructions .ROUTE 03/08/21 05/20/21 Unknown Rx tablet,delayed release .COMPLEX #60 tab ibuprofen 800 mg tablet 800 mg PO Q8H PRN #30 tab 03/17/21 05/20/21 Unknown Rx furosemide 40 mg tablet 40 mg PO QAM #90 tab 03/30/21 05/20/21 Unknown Rx lisinopril 10 mg tablet 10 mg PO DAILY #90 tab 03/30/21 05/20/21 Unknown Rx budesonide-formoterol HFA 80 See Rx Instructions .ROUTE 04/04/21 05/20/21 Unknown Rx mcg-4.5 mcg/actuation aerosol .COMPLEX #10.2 g inhaler (Symbicort) magnesium oxide 400 mg (241.3 mg See Rx Instructions .ROUTE 04/04/21 05/20/21 Unknown Rx magnesium) tablet .COMPLEX #30 tab albuterol sulfate 90 mcg/actuation See Rx Instructions .ROUTE 04/05/21 05/20/21 Unknown Rx aerosol inhaler (Ventolin HFA) .COMPLEX #18 g potassium chloride 10 mEq See Rx Instructions .ROUTE 04/28/21 05/20/21 Unknown Rx tablet,extended release .COMPLEX #30 tab desvenlafaxine succinate 50 mg 50 mg PO DAILY #30 tab 05/07/21 05/20/21 Unknown Rx tablet,extended release 24 hr (Pristiq) olanzapine 20 mg tablet (Zyprexa) 20 mg PO .HS #30 tab 05/07/21 05/20/21 Unknown Rx propranolol 10 mg tablet 10 mg PO TID #90 tab 05/07/21 05/20/21 Unknown Rx trazodone 100 mg tablet 100 mg PO .HS #30 tab 05/07/21 05/20/21 Unknown Rx atorvastatin 80 mg tablet See Rx Instructions .ROUTE 05/09/21 05/20/21 Unknown Rx .COMPLEX #30 tab dapagliflozin 10 mg tablet See Rx Instructions .ROUTE 05/09/21 05/20/21 Unknown Rx (Farxiga) .COMPLEX #30 tab gabapentin 600 mg tablet See Rx Instructions .ROUTE 05/09/21 05/20/21 Unknown Rx .COMPLEX #90 tab hydrocodone 5 mg-acetaminophen 325 1 tab PO PRN PRN 05/20/21 05/20/21 Unknown History mg tablet Allergies Allergy/AdvReac Type Severity Reaction Status Date / Time quetiapine [From Seroquel] Allergy SEIZURES Verified 05/20/21 10:46 [facility] Anesthesia Medical History Chronic back pain COPD (chronic obstructive pulmonary disease) Diabetes mellitus Diabetic neuropathy Elevated LFTs Encounter for screening laboratory testing for COVID-19 virus Folate deficiency Generalized anxiety disorder GERD (gastroesophageal reflux disease) Hyperlipidemia Hypertension Peripheral edema Psychiatric care Residual schizophrenia Viral gastroenteritis Vitamin D deficiency Surgical History History of vasectomy Family History Other Diabetes Hypertension Denies family history of Cancer Social History Smoking and tobacco status: current every day smoker cigarettes Packs smoked per day: 0.5 Years cigarettes smoked: 16 Quit status (tobacco): has quit using tobacco Second hand smoke exposure: No Smoking risk assessment/counseling performed?: Yes Tobacco counseling given: counseling >3 minutes and other Alcohol intake: never Desire information about alcohol rehabilitation?: No Counseling given: No Desire information about substance/drug rehabilitation?: No Counseling given: No Adopted: No Caregiver/support person: No Lives independently: Yes Household members: family Housing: House Marital status: Single Number of children: 2 service: No Current occupational status: disabled History of recent travel: No Current gender identity: Male Data Anesthesia Cardiac Studies: No Data to Display
[2021-06-01] VITALS (30 sets, daily range): BP systolic 111–162; BP diastolic 65–113; PULSE 73–127; RESP 12–25; TEMP 36.2–36.8; O2SAT 92–100
--- NOTE | 2021-06-01 | XR_ITS ---
WS: [id number] Lumbar spine, C-arm fluoroscopy, 06/01/2021 Clinical Data: nonunion of athrodesis Comparison: None. Findings: Posterior lumbar fusion done by Dr. Hannon. L3-S1 with bilateral pedicle screws and disc spacers at L4-L5 and L5-S1. XR/XR lumbar spine 2-3V* [id number] Impression: Posterior lumbar fusion.
--- NOTE | 2021-06-01 | SCC_ITS ---
Procedure done: 1. L2-Pelvis fusion 2. L2- S1 instrumentation 3. Lumbopelvic instrumentation 4. computer navigation stereotactic of spine 5. Bone marrow aspiration from right iliac crest 6. Use of allograft 7. removal of hardware 8 seconds of fluoroscopic guidance, for a cumulative dose of 36.0 mGy, was provided to Dr. Hannon by the radiology department. C-arm images of the lumbar spine were saved for the patient's permanent record. TORRESD
--- NOTE | 2021-06-01 08:18 | P.HP_ITS ---
Providers/Chief Complaint Primary Care Provider: WYATT Thomas Chief Complaint: Nonunion of arthrodesis History of Present Illness Aries Gutierrez is a 40 year old male that had previous fusion sandee on to develope a nonunion. He is complaining of increased back pain that is getting worse Review of Systems Narrative: General ROS: negative for weight changes, fever ENT ROS: negative for nasal congestion, drainage or bleeding, sore throat, dysphagia or ear pain Eyes: PERRL Hematological and Lymphatic ROS: negative for swollen glands or abnormal bleeding Endocrine ROS: negative for polyuria/polydpsia or new changes in weight Respiratory ROS: negative for cough, shortness of breath, or wheezing Cardiovascular ROS: negative for chest pain or dyspnea on exertion Gastrointestinal ROS: negative for reflux, abdominal pain, change in bowel habits, or black or bloody stools Musculoskeletal ROS: negative for back pain, neck pain, or joint pain or swelling except for current problem Neurological ROS: negative for TIA or stoke symptoms Skin: no rashes Medications/Allergies Home Medications Medication Instructions Recorded Confirmed Last Taken Type nitroglycerin 0.4 mg sublingual 0.4 mg SUBLINGUAL Q5M PRN 05/09/19 05/20/21 Unknown History tablet crutch #2 ea 05/05/20 05/13/21 Unknown Rx cetirizine 10 mg tablet (Zyrtec) 10 mg PO DAILY #30 tab 06/08/20 06/01/21 04/20/21 Rx folic acid 1 mg tablet See Rx Instructions .ROUTE 06/08/20 06/01/21 05/31/21 08:00 Rx .COMPLEX #90 tab custom sole support #1 ea 07/14/20 05/13/21 Unknown Rx diabetic shoes no inserts #1 ea 07/14/20 05/13/21 Unknown Rx Diabetic Shoes #1 ea 08/13/20 05/13/21 Unknown Rx fluticasone propionate 50 2 spray INTRANASAL DAILY #16 g 11/04/20 05/20/21 Unknown Rx mcg/actuation nasal spray,suspension (Flonase Allergy Relief) albuterol sulfate 2.5 mg (3 mL) INHALATION QID PRN 11/12/20 06/01/21 05/31/21 Rx #75 ml promethazine 25 mg tablet 25 mg PO Q6H PRN #30 tab 12/16/20 05/20/21 Unknown Rx famotidine 20 mg tablet See Rx Instructions .ROUTE 01/10/21 05/20/21 Unknown Rx .COMPLEX #180 tab sitagliptin 100 mg-metformin ER See Rx Instructions .ROUTE 01/10/21 06/01/21 05/31/21 Rx 1,000 mg tablet,extended .COMPLEX #90 tab [id number] (Janumet XR) ibuprofen 800 mg tablet 800 mg PO Q8H PRN #30 tab 03/17/21 05/20/21 Unknown Rx furosemide 40 mg tablet 40 mg PO QAM #90 tab 03/30/21 06/01/21 05/31/21 08:00 Rx lisinopril 10 mg tablet 10 mg PO DAILY #90 tab 03/30/21 06/01/21 05/31/21 Rx magnesium oxide 400 mg (241.3 mg See Rx Instructions .ROUTE 04/04/21 06/01/21 05/31/21 Rx magnesium) tablet .COMPLEX #30 tab albuterol sulfate 90 mcg/actuation See Rx Instructions .ROUTE 04/05/21 06/01/21 04/06/21 Rx aerosol inhaler (Ventolin HFA) .COMPLEX #18 g potassium chloride 10 mEq See Rx Instructions .ROUTE 04/28/21 06/01/21 05/31/21 Rx tablet,extended release .COMPLEX #30 tab desvenlafaxine succinate 50 mg 50 mg PO DAILY #30 tab 05/07/21 06/01/21 05/31/21 08:00 Rx tablet,extended release 24 hr (Pristiq) olanzapine 20 mg tablet (Zyprexa) 20 mg PO .HS #30 tab 05/07/21 06/01/21 05/31/21 20:00 Rx propranolol 10 mg tablet 10 mg PO TID #90 tab 05/07/21 06/01/21 06/01/21 04:00 Rx trazodone 100 mg tablet 100 mg PO .HS #30 tab 05/07/21 06/01/21 05/11/21 Rx atorvastatin 80 mg tablet See Rx Instructions .ROUTE 05/09/21 06/01/21 05/31/21 Rx .COMPLEX #30 tab dapagliflozin 10 mg tablet See Rx Instructions .ROUTE 05/09/21 06/01/21 05/31/21 08:00 Rx (Farxiga) .COMPLEX #30 tab cyclobenzaprine 10 mg tablet 10 mg PO BID PRN #20 tab 05/29/21 06/01/21 05/31/21 Rx prednisone 20 mg tablet 20 mg PO BID 7 Days #14 tab 05/29/21 05/31/21 Rx budesonide-formoterol HFA 80 See Rx Instructions .ROUTE 05/30/21 05/04/21 Rx mcg-4.5 mcg/actuation aerosol .COMPLEX #10.2 g inhaler (Symbicort) diclofenac sodium 75 mg See Rx Instructions .ROUTE 05/30/21 06/01/21 05/31/21 Rx tablet,delayed release .COMPLEX #60 tab gabapentin 600 mg tablet See Rx Instructions .ROUTE 05/30/21 06/01/21 05/31/21 20:00 Rx .COMPLEX #90 tab hydrocodone 5 mg-acetaminophen 325 1 tab PO PRN PRN 7 Days #30 tab 05/31/21 06/01/21 05/31/21 21:00 Rx mg tablet Allergies Allergy/AdvReac Type Severity Reaction Status Date / Time quetiapine [From Seroquel] Allergy SEIZURES Verified 05/20/21 10:46 PFSH Acute PFSH: Medical History Chronic back pain COPD (chronic obstructive pulmonary disease) Diabetes mellitus Diabetic neuropathy Elevated LFTs Encounter for screening laboratory testing for COVID-19 virus Folate deficiency Generalized anxiety disorder GERD (gastroesophageal reflux disease) Hyperlipidemia Hypertension Peripheral edema Psychiatric care Residual schizophrenia Viral gastroenteritis Vitamin D deficiency Surgical History History of vasectomy Family History Other Diabetes Hypertension Denies family history of Cancer Social History Smoking and tobacco status: current every day smoker cigarettes Packs smoked per day: 0.5 Years cigarettes smoked: 16 Quit status (tobacco): has quit using tobacco Second hand smoke exposure: No Smoking risk assessment/counseling performed?: Yes Tobacco counseling given: counseling >3 minutes and other Alcohol intake: never Desire information about alcohol rehabilitation?: No Counseling given: No Desire information about substance/drug rehabilitation?: No Counseling given: No Adopted: No Caregiver/support person: No Lives independently: Yes Household members: family Housing: House Marital status: Single Number of children: 2 service: No Current occupational status: disabled History of recent travel: No Current gender identity: Male Vitals/I&O/Wt Last Vital Signs Temp 97.7 F 06/01/21 08:00 Pulse 88 06/01/21 08:00 Resp 18 06/01/21 08:00 BP 136/85 06/01/21 08:00 Pulse Ox 99 06/01/21 08:00 Physical Exam Narrative: CONSTITUTIONAL: The patient is a normal appearing [] in no apparent distress. GENERAL: Patient in no acute distress. CARDIAC: Regular rate and rhythm. CHEST: Normal inspiratory effort, normal respiratory rate. ABDOMEN: Soft and nontender. SKIN: Clear, warm and intact. NEURO?PSYCH: The patient is alert and oriented to person, place and time. Sensorv /SILT Motor StrengthShoulder abduction C5 5/5Wrist extension C6 5/5Elbow extension C7 5/5Hand Blood And Plasma Laboratory Assistant C8 5/5Finger abduction T15/5 Radial/ Ulnar/ Median n intact LowerSensory (SILT)Motor StrengthHin flexion L2/3Ant/inner thigh 5/5Hip adduction L2/3 5/5Knee extension L4 Lat thigh, 5/5Toe dorsiflexion L5 5/5Ankle dorsiflexion L5/ [id number] flexion S1 5/5 DTRBleeps 2+Triceps 2+Brachioradialis 2+Patellar 2+Achilles 2+ MUSCULOSKELETAL: [] UPPEREXTREMITIES: The patient had full active ROM in fingers, wrist, elbow, and shoulder. The patient demonstrated ability to fully flex/extend/abduct/adduct fingers, make ok sign, cross 2nd/3rd digits, extend 1st digit fully.. Radial pulse 2+, CR<2 seconds. LOWER EXTREMITIES: Pt has full, active ROM of toes, ankle, knee, and hip. Dorsalis pedis/posterior tibialis pulses 2+, CR<2 seconds. SPINE: Skin warm, dry, intact. 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
[2021-06-01 08:29] LABS: Glucose Point of Care 97 mg/dL (70-110)
--- NOTE | 2021-06-01 08:33 | P.ANESUD_ITS ---
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 Proposed Procedure: Operation Date: 06/01/21 09:30 Proposed Procedures p Posterior Lumbar Interbody Fusion Revision(Not Applicable) - Nirmal Hannon, DO Any changes to Pre-Anesthetic Assessment?: No Last Intake: Intake Last Liquid Date 05/31/21 Last Liquid Time 22:30 Last Solid Date 05/31/21 Last Solid Time 22:30 Vitals: Temperature 97.7 F 06/01/21 08:00 Temperature Source Temporal Artery S can 06/01/21 08:00 Pulse Rate 88 06/01/21 08:00 Pulse Rhythm 06/01/21 08:14 Pulse Strength 3+ Normal 06/01/21 08:14 Respiratory Rate 18 06/01/21 08:00 Blood Pressure 136/85 06/01/21 08:00 Blood Pressure Kendal n 102 06/01/21 08:00 Pulse Oximetry 99 06/01/21 08:00 Oxygen Delivery Me thod 06/01/21 08:14 Exam: Pre-Anes Outpt Exam: alert, oriented x 3 and regular rate & rhythm Additional Exam Findings (including area of procedure): Wheezing Cardiac Studies: No Data to Display
[2021-06-01] MEDS: sodium chloride 0.9% 1,000 ML 30 ML IV (08:37)
[2021-06-01] MEDS: heparin, porcine 1,000 unit/mL INJ 10 mL 10000 UNIT IRRIGATION (10:00)
[2021-06-01] MEDS: vancomycin 1,000 MG SDV 1000 MG XX (10:01)
--- NOTE | 2021-06-01 12:27 | P.OP_ITS ---
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 L2-Pelvis fusion 2. L2- S1 instrumentation 3. Lumbopelvic instrumentation 4. computer navigation stereotactic of spine 5. Bone marrow aspiration from right iliac crest 6. Use of allograft 7. removal of hardware Surgeon: Nirmal Hannon Prism Inspector: Jairo Barraza Prism Inspector: The surgical technology instructor, Jairo Barraza, PRAMOD was needed for his expertise with spine surgery. He was important and necessary throughout the procedure to complete in a safe and timely manner. He assisted with patient positioning prepping and draping tissue retraction suctioning of the operative field protection of the dural sac and tissue closure Estimated blood loss (mL): 200 Procedure: 1. L2-Pelvis fusion 2. L2- S1 instrumentation 3. Lumbopelvic instrumentation 4. computer navigation stereotactic of spine 5. Bone marrow aspiration from right iliac crest 6. Use of allograft 7. removal of hardware Patient is brought to the operative suite after undergoing anesthesia was flipped into the prone position. All areas impingement were well-padded. Patient was prepped and draped in normal sterile fashion. A skin incision was made using the previous skin incision. The previous skin incision was ellipsed out. An incision was extended up to L3. Subperiosteal dissection was made at L3 out to the transverse processes. And then soft tissue was dissected down to the scar tissue overlying the dura. The facet joints bilaterally were exposed out to the TPs. The screws at L4-5 and S1 were identified. The screws were then removed. By removing the end First of each screw and then the rods on both the right and left side were removed. And the screws were removed. The screws were found to be loose. Once the screws removed then further exposure was made out laterally. Then attention was brought to obtaining the bone marrow aspirate. Bone marrow aspirate was taken out using the Melissa cell bone marrow aspiration kit. Separate incision made in the fascia and a sharp awl was inserted into the iliac crest aspiration was performed and then a blunt aspirator was inserted deeper again aspiration was performed and then the Melissa cell needle was inserted and slowly drawn out at millimeter increments in order to facilitate getting 20 cc of bone marrow aspirate. This was mixed in with the ostial amp fibers. Next attention was brought to placing the fiducials for the computer navigation. 2 stab incisions made in the right iliac crest K wires were placed and then the fusion was inserted and attached onto this. The C-arm was brought in and the information from the serum was linked into the computer through the fiducial. Next attention was brought to placing the screws. This was done using computer navigation. The attention was brought first to the L3 screws. Drill was used to get the starting point and then the awl was inserted using computer jonathan igation. And the pedicle feeler was used then the screw was placed again using computer navigation. The screws at L4 and L5 were redirected. Once the screws were inserted they were 7.5 screws and set of 6.5 screws. The S1 screws were then placed again using computer navigation. Previous screws holes were not used. I treated the screws up superiorly and are facilitate getting better purchase into the sacrum. These were 6 5 screws. Next attention was brought to placing the iliac screws again this was done use a the computer navigation. The iliac screws were placed into the iliac crest. These are sacral ala iliac screws. This is done bilaterally again using computer navigation. By placing the awl followed by the pedicle feeler followed by placing the screw. The instrumentation was at L2,L3,L4, L5,S1 and the iliac crest. Once all the screws were placed attention was then brought to placing the rods. Rods were placed and attached from L2 to the pelvis. And caps were placed at each of the screws. This was done bilaterally and everything was locked into position. Next attention was brought to decorticating the bone and the transverse processes again were decorticated as well as the facet joints. This was done bilaterally and then the osteoamp of bone graft was packed into the gutters. Wound was then irrigated and vancomycin powder was placed a deep drain was placed and wound was closed in layered fashion 0 Vicryl was used in the thoracolumbar fascia followed by 2-0 Vicryl and Monocryl suture. Sterile dressing was applied patient was transferred to the PACU in stable condition.
[2021-06-01] MEDS: fentaNYL 50 mcg/mL INJ 2mL IVP ×2 (13:07→13:14)
[2021-06-01] MEDS: HYDROmorphone 1 mg/mL INJ 1 mL 0.5 MG IVP ×2 (13:23→13:34)
--- NOTE | 2021-06-01 14:22 | ANE.PACU2 ---
Inpatient post-anesthesia follow up: Airway intact: Yes Vital signs: Temperature 97.3 F Pulse Rate 102 Respiratory Rate 18 Blood Pressure 144/95 Pulse Oximetry 98 Oxygen Delivery Me thod Room Air Oxygen Flow Rate 10 Fraction of Inspir ed Oxygen Hydration adequate: Yes Nausea and vomiting: No Pain level: 4 Mental status: Baseline
[2021-06-01] MEDS: lactated ringers 1,000 ML 90 ML IV (15:39)
[2021-06-01] MEDS: HYDROcodone-acetaminophen 5-325 mg Tablet PO ×3 (15:41→23:30)
[2021-06-01] MEDS: docusate sodium 100 mg Capsule PO (18:01)
[2021-06-01] MEDS: ketorolac 30 mg/mL INJ IVP (18:26)
--- NOTE | 2021-06-01 19:17 | PC.NURSE ---
[facility]
[2021-06-01] MEDS: propranolol 20 mg Tablet 10 MG PO (19:43)
[2021-06-01] MEDS: gabapentin 300 mg Capsule 600 MG PO (19:44)
[2021-06-01] MEDS: OLANZapine 10 mg TABLET 20 MG PO (19:44)
[2021-06-01] MEDS: trazodone 100 mg Tablet PO (19:45)
--- NOTE | 2021-06-01 19:59 | PC.NURSE ---
ROUNDING Pt expressed desire to stand up. Assisted with standing at bedside and safia very well.
[2021-06-02] VITALS: BP 121/75; PULSE 94; RESP 18; TEMP 36.8; O2SAT 96
[2021-06-02] MEDS: lactated ringers 1,000 ML 90 ML IV (01:59)
[2021-06-02 03:00] VITALS: BP 130/80; PULSE 94; RESP 18; TEMP 37.1; O2SAT 99
[2021-06-02 03:08] VITALS: RESP 19; O2SAT 97
[2021-06-02] MEDS: morphine 4 mg/mL SDV 1 mL 2 MG IVP (03:08)
[2021-06-02] MEDS: FUROsemide 40 mg Tablet PO (05:39)
[2021-06-02] MEDS: HYDROcodone-acetaminophen 5-325 mg Tablet PO (05:39)
[2021-06-02] MEDS: enoxaparin 40 mg/0.4 mL Syringe SUBCUT (05:40)
--- NOTE | 2021-06-02 06:05 | PC.NURSE ---
SHIFT SUMMARY Is very pleasant. Has not slept much tonight. Has been playing games on phone much of the night. Has had c/o surgical back pain and has been medicated with po Hydrocodone. Once given IV Morphine for more severe pain. After the dose of Morphine has been rating pain at 3-4. Given the po Hydrocodone with am meds. Is hoping to go home today. Dressing to back incision is C&D. Binder in place. Hemovac drain with 180ml sanguinous liquid tonight. IV fluids infusing and taking po well. Good urine output per Rollins. Receiving postop IV antibiotics
--- NOTE | 2021-06-02 07:29 | P.PN_ITS ---
Subjective Subjective: POD 1 Patient sitting up in bed feeling much better. Reports his left leg pain has improved as well. Denies any shortness of breath, chest pain or headaches. He is asking to go home. Vitals/I&O/Wt Last Vital Signs Temp 98.7 F 06/02/21 03:00 Pulse 94 06/02/21 03:00 Resp 19 H 06/02/21 03:08 BP 130/80 06/02/21 03:00 Pulse Ox 97 06/02/21 03:08 06/01/21 06/02/21 06/02/21 22:59 06:59 14:59 Intake Total 60 / 1170 1950 / 3120 Output Total 640 / 1290 1790 / 3080 Balance -580 / -120 160 / 40 Physical Exam Narrative: alert and oriented x3 with a good general appearance normal normal affect. Mild tenderness around the incisional site with the incision appears clean and dry. No signs of erythema or drainage. No signs of infection. Patient denies any fevers or chills. 5/5 motor strength both lower extremities with negative straight leg raise bilaterally. Calves are supple no medial thigh tenderness. Pulses are 2+ at the dorsalis pedis and posterior tibial region. Good capillary refill throughout normal sensation light touch both lower ext remities. Hemovac drain and Rollins catheter present Urinary Catheter Management: Rollins: Cath Placed During This Visit: yes Reason for Continuing Indwelling Catheter: Perioperative Use in Selected Surgeries Urinary Catheter Date of Insertion: 06/01/21 Urinary Catheter Time of Insertion: 09:15 A&P Assessment and plan (1) Status post lumbar spinal fusion: We will discontinue the Hemovac have physical therapy evaluate and mobilize. Restrict the bending lifting and twisting activities. Continue abdominal binder when the patient is up mobilizing. Encouraged him to continue incentive spirometry at home. Discharge home later this morning. We will see him back in the office in 1 week's time for wound check. Patient will call if he is having problems in the meantime. Status: Acute Attestations Medical Necessity Statement*: DC Home this AM Coding Level of Care Code Acute Search Marketing Analyst for Rona Cox Diagnoses Status post lumbar spinal fusion Z98.1
[2021-06-02 07:58] VITALS: PULSE 102; RESP 16; O2SAT 98
[2021-06-02] MEDS: propranolol 20 mg Tablet 10 MG PO (08:11)
[2021-06-02] MEDS: gabapentin 300 mg Capsule 600 MG PO (08:12)
[2021-06-02] MEDS: magnesium oxide 400 mg tablet PO (08:12)
[2021-06-02] MEDS: lisinopril 10 mg Tablet PO (08:12)
[2021-06-02] MEDS: potassium chloride ER 10 mEq Tablet PO (08:12)
[2021-06-02] MEDS: folic acid 1 mg Tablet PO (08:12)
[2021-06-02 08:15] VITALS: BP 145/93; PULSE 103; RESP 18; TEMP 36.6; O2SAT 97
[2021-06-02 11:05] VITALS: BP 145/93; PULSE 103; RESP 18; TEMP 36.6; O2SAT 97
--- NOTE | 2021-06-02 11:07 | PC.NURSE ---
IV's removed intact at this time. Patient tolerated well. Patient is A&Ox3. Respirations even and non-labored on room air. Reviewed patient discharge with patient at this time. Patient verbalized understanding of discharge instructions and how to take pain medications. Patient wheel chaired to private car.
--- NOTE | 2021-06-03 12:45 | PM.DCS ---
Discharge Providers Date of Admission: 06/01/21 14:26 Date of Discharge: June 02, 2021 Attending Provider at Admission: Nirmal Hannon DO Attending Provider at Discharge: Nirmal Hannon DO Primary Care Provider: WYATT Thomas Diagnoses at Discharge Discharge Diagnosis (1) Status post lumbar spinal fusion: Status: Acute Reason for Visit Reason for Visit: Nonunion of arthrodesis Hospital Course Hospital Course uneventful Physical Exam Urinary Catheter Management: Rollins: Cath Placed During This Visit: yes, but has since been removed by the nurse Reason for Continuing Indwelling Catheter: Decision to DC Catheter Urinary Catheter Date of Insertion: 06/01/21 Urinary Catheter Time of Insertion: 09:15 Date Urinary Catheter Removed: 06/02/21 Time Urinary Catheter Discontinued: 09:00 Discharge Data Studies Completed and Pending Completed Studies During Hospitalization Category Date Time Status XR lumbar spine 2-3V* 23054 Routine Exams 06/01/21 Completed Radiology Impressions Lumbar Spine X-Ray 06/01/21 00:00 Impression: Posterior lumbar fusion. Laboratory Results POC Glucose 97 mg/dL (70-110) 06/01/21 08:27 Vitals Last Vital Signs Temp 97.8 F 06/02/21 11:05 Pulse 103 H 06/02/21 11:05 Resp 18 06/02/21 11:05 BP 145/93 06/02/21 11:05 Pulse Ox 97 06/02/21 11:05 Discharge Plan Discharge Patient Disposition: Home Condition: Stable Prescriptions: New hydrocodone-acetaminophen 5-325 mg tablet 1 tab PO Q4H Qty: 40 0RF Continued folic acid 1 mg tablet See Rx Instructions .ROUTE .COMPLEX Qty: 90 1RF Dose Instruction: TAKE ONE TABLET BY MOUTH DAILY Rx Instructions: TAKE ONE TABLET BY MOUTH DAILY cetirizine [Zyrtec] 10 mg tablet 10 mg PO DAILY Qty: 30 2RF (DME) Diabetic Shoes See Rx Instructions .Route .MEDSUPPLY Qty: 1 0RF Rx Instructions: As directed albuterol sulfate 2.5 mg /3 mL (0.083 %) solution for nebulization 2.5 mg INHALATION QID PRN (Reason: shortness of breath or wheezing) Qty: 75 2RF Janumet XR 100-1,000 mg tablet, ER multiphase 24 hr See Rx Instructions .ROUTE .COMPLEX Qty: 90 1RF Dose Instruction: TAKE ONE TABLET BY MOUTH DAILY Rx Instructions: TAKE ONE TABLET BY MOUTH DAILY famotidine 20 mg tablet See Rx Instructions .ROUTE .COMPLEX Qty: 180 1RF Dose Instruction: TAKE ONE TABLET BY MOUTH TWICE DAILY Rx Instructions: TAKE ONE TABLET BY MOUTH TWICE DAILY takes as needed nitroglycerin 0.4 mg tablet, sublingual 0.4 mg SUBLINGUAL Q5M PRN (Reason: Chest Pain) 0RF (DME) custom sole support See Rx Instructions .Route .MEDSUPPLY Qty: 1 0RF Rx Instructions: [place] courtney [place] [facility] [place] no inserts See Rx Instructions .Route .MEDSUPPLY Qty: 1 0RF Rx Instructions: As directed promethazine 25 mg tablet 25 mg PO Q6H PRN (Reason: nausea and vomiting) Qty: 30 0RF albuterol sulfate [Ventolin HFA] 90 mcg/actuation HFA aerosol inhaler See Rx Instructions .ROUTE .COMPLEX Qty: 18 5RF Dose Instruction: INHALE TWO PUFFS INTO LUNGS EVERY 6 HOURS NEEDED FOR SHORTNESS OF BREATH OR WHEEZING Rx Instructions: INHALE TWO PUFFS INTO LUNGS EVERY 6 HOURS NEEDED FOR SHORTNESS OF BREATH OR WHEEZING (DME) crutch Misc See Rx Instructions .ROUTE .MEDSUPPLY Qty: 2 0RF Rx Instructions: As directed fluticasone propionate [Flonase Allergy Relief] 50 mcg/actuation spray,suspension 2 spray intranasal DAILY Qty: 16 0RF Rx Instructions: administer into each nostril furosemide 40 mg tablet 40 mg PO QAM Qty: 90 0RF lisinopril 10 mg tablet 10 mg PO DAILY Qty: 90 0RF magnesium oxide 400 mg (241.3 mg magnesium) tablet See Rx Instructions .ROUTE .COMPLEX Qty: 30 0RF Dose Instruction: TAKE ONE TABLET BY MOUTH DAILY Rx Instructions: TAKE ONE TABLET BY MOUTH DAILY potassium chloride 10 mEq tablet extended release See Rx Instructions .ROUTE .COMPLEX Qty: 30 2RF Dose Instruction: TAKE ONE TABLET BY MOUTH DAILY Rx Instructions: TAKE ONE TABLET BY MOUTH DAILY desvenlafaxine succinate [Pristiq] 50 mg tablet extended release 24 hr 50 mg PO DAILY Qty: 30 2RF olanzapine [Zyprexa] 20 mg tablet 20 mg PO .HS Qty: 30 2RF propranolol 10 mg tablet 10 mg PO TID Qty: 90 2RF trazodone 100 mg tablet 100 mg PO .HS Qty: 30 2RF atorvastatin 80 mg tablet See Rx Instructions .ROUTE .COMPLEX Qty: 30 0RF Dose Instruction: TAKE ONE TABLET BY MOUTH DAILY Rx Instructions: TAKE ONE TABLET BY MOUTH DAILY Farxiga 10 mg tablet See Rx Instructions .ROUTE .COMPLEX Qty: 30 0RF Dose Instruction: TAKE ONE TABLET BY MOUTH EVERY MORNING Rx Instructions: TAKE ONE TABLET BY MOUTH EVERY MORNING budesonide-formoterol [Symbicort] 80-4.5 mcg/actuation HFA aerosol inhaler See Rx Instructions .ROUTE .COMPLEX Qty: 10.2 0RF Dose Instruction: INHALE 2 PUFFS INTO LUNGS TWICE DAILY Rx Instructions: INHALE 2 PUFFS INTO LUNGS TWICE DAILY gabapentin 600 mg tablet See Rx Instructions .ROUTE .COMPLEX Qty: 90 0RF Dose Instruction: TAKE ONE TABLET BY MOUTH THREE TIMES DAILY Rx Instructions: TAKE ONE TABLET BY MOUTH THREE TIMES DAILY hydrocodone-acetaminophen 5-325 mg tablet 1 tab PO PRN PRN (Reason: Pain) 7 Days Qty: 30 0RF prednisone 20 mg tablet 20 mg PO BID 7 Days Qty: 14 0RF cyclobenzaprine 10 mg tablet 10 mg PO BID PRN (Reason: muscle spasm) Qty: 20 0RF ibuprofen 800 mg tablet 800 mg PO Q8H PRN (Reason: pain) Qty: 30 0RF Held diclofenac sodium 75 mg tablet,delayed release (DR/EC) See Rx Instructions .ROUTE .COMPLEX Qty: 60 0RF Hold Instructions: Resume on 06/20/21. Dose Instruction: TAKE ONE TABLET BY MOUTH TWICE DAILY NEEDED FOR PAIN Rx Instructions: TAKE ONE TABLET BY MOUTH TWICE DAILY NEEDED FOR PAIN No Action hydrocodone-acetaminophen 10-325 mg tablet 1 tab PO Q4H PRN (Reason: pain) 7 Days Qty: 40 0RF oxycodone 10 mg tablet 10 mg PO Q4H PRN (Reason: pain) 7 Days Qty: 40 0RF Discharge Orders: Discharge Order (Routine); Ordered 06/02/21 Ordered By: Jairo Barraza Referrals: Nirmal Hannon DO [Physician] - 06/09/21 10:15 am Discharge Diet: Advance as tolerated Discharge Activity: Increase activity as tolerated Patient Instructions: Hydrocodone/Acetaminophen (By mouth), Lumbar Spinal Fusion (DC), Opioid Safety Activity Restrictions/Additional Instructions: Thank you for choosing [facility] for your care! The following is a list of instructions, from your provider, to follow upon your discharge to ensure you have the optimal recovery from your recent injury or surgery. Follow-up care is a dennis part of your treatment and safety. Be sure to make and go to all appointments and call your doctor if you are having problems. If you do not already have a follow-up appointment made, call Dr. Hannon's] office in the next 1-3 days to make follow up appointment for [1] weeks at [phone]. It is also a good idea to know your test results and keep a list of the medicines you take. Medications will be prescribed for you at your provider's discretion. These medications are to be used as instructed; if they are taken more often that prescribed they will not be refilled early and in most cases will not be refilled at all. > When a refill is needed, you should contact our office 2-3 business days before your prescription runs out. Medications will NOT be refilled by international account manager providers after hours! > Many pain medications contain Tylenol (Acetaminophen). Do not consume more than 4,000 mg of Tylenol per day in total with any combination of medications. > Pain medications can cause constipation. Please use an over the counter stool softener as directed, while taking pain medications. Consult your local pharmacist with questions or recommendations on stool softeners. If constipation persists, contact our office or your primary care provider. > While under our care, you are not to receive pain medications or other controlled substances from any other provider unless our office is notified and approves. Any attempts to do so will result in refusal to prescribe any further pain medications and possible dismissal from our practice. ? Walking is essential for the healing process after surgery. We would like you to slowly advance your walking. This should be done on relatively flat clear ground (inside or out) or can be done on a treadmill. Remember this goal does not have to happen all at once, slowly increase your distance and duration. This can be broken into more more than one walk per day as tolerated. Patients who walk as directed after surgery rarely require Physical Therapy. In the unlikely event this issue arises your provider will direct hospital staff to make the appropriate arrangements. ? No lifting over 5 pounds {a gallon of milk) or bending/twisting until further notice. Each of these activities places an unnecessary amount of stress onto the body and can impede the delicate healing process. > Instead of bending at the waist, keep your back straight and bend at the knees. > Instead of twisting your torso, keep your back straight and turn your entire body with your feet. ? You may sleep in any position which makes you comfortable. Many patients find comfort sleeping in a reclining chair. It is not abnormal to have difficulty sleeping for the first several weeks following your surgery. We recommend trying Benadry! or Tylenol PM as directed to help with your sleeping difficulties. Both medications are over the counter and available without prescription. ? NO SMOKING!!! Smoking dramatically increases the probability of developing postoperative wound infections. ? Common complaints after lumbar and/or thoracic spine surgery include, but are not limited to: numbness and/or tingling in the legs, pain around the incision and surrounding tissues, muscle spasms, or stiffness of the middle to low back. Contact our office if these symptoms persist or if an acute change occurs. ? No driving for the first 3-5days, and not while taking narcotics until seen at your follow-up appointment and cleared. There are no restrictions for riding on short trips, however if you take a longer trip, arrangements should be made to make regular stops to get out of the vehicle and stretch . ? Swelling is an unfortunate event that will take place with any surgery and is the primary source of your postoperative discomfort. While walking and regular approved activities helps control inflammation, there are additional steps you can take to minimize swelling. > Place ice over the surgical site and surrounding tissue for twenty minutes, followed by applying a low/medium heat (heating pad) for an additional twenty minutes every 1-2 hours as needed for painrelief. > You may use of over the counter anti-inflammatory medications (Ibuprofen, Motrin, Aleve, Advil, etc) as directed on the package label. These types of medicines will significantly reduce the amount of discomfort you experience after surgery from swelling. It should be noted that if you have and allergy to any of these medications, or a history of ulcers or kidney disease you should consult you primary care provider prior to starting these medications. Discharge Attestations Time Spent in Discharge Care*: less than 30 min Quality Metrics Clinical Quality Measures [ No reported AMI, CVA or VTE this stay] Coding Level of Care Code Acute Chg FW DC note Diagnoses Status post lumbar spinal fusion Z98.1
== END 2021-06-02 11:00 | disposition home or self-care (01) | DRG 460 ==
LOC: MEDSURG 14:52
PROVIDERS: Admitting Provider Orthopaedic Surgery; PCP Nurse Practitioner Family; Visit Provider Orthopaedic Surgery
PROC: 0SG107J Fusion of 2 or more Lumbar Vertebral Joints with Autologous Tissue Substitute, Posterior Approach, Anterior Column, Open Approach (ICD-10-PCS; CPT 22612; principal; 2021-06-01 09:30)
DX: M96.0 Pseudarthrosis after fusion or arthrodesis (principal); F20.5 Residual schizophrenia; G89.29 Other chronic pain; J44.9 Chronic obstructive pulmonary disease, unspecified; E11.42 Type 2 diabetes mellitus with diabetic polyneuropathy; F41.1 Generalized anxiety disorder; K21.9 Gastro-esophageal reflux disease without esophagitis; E78.5 Hyperlipidemia, unspecified; I10 Essential (primary) hypertension; F17.210 Nicotine dependence, cigarettes, uncomplicated; Z79.891 Long term (current) use of opiate analgesic; Z79.52 Long term (current) use of systemic steroids; Z79.51 Long term (current) use of inhaled steroids
CPT/HCPCS: 36410; 36416; 36620; 51702; 72100; 76000; 82962; 87635; 94640; 96372; 97161; 99283; A7015; C1713; J0330; J0690; J1100; J1170; J1644; J1650; J1885; J2250; J2270; J2360; J2370; J2405; J2704; J2930; J3010; J3370; J3490; J3535; J7030; J7611; P9041

== ENCOUNTER → 2021-06-17 13:24 | Outpatient (BNVA) | payer MEDICARE, MEDICAID, SELFPAY | PROVIDERS: PCP Nurse Practitioner Family; Visit Provider Nurse Practitioner Family | DX: B37.0 Candidal stomatitis (principal); K13.79 Other lesions of oral mucosa; E11.9 Type 2 diabetes mellitus without complications; E78.5 Hyperlipidemia, unspecified; K21.9 Gastro-esophageal reflux disease without esophagitis; E11.40 Type 2 diabetes mellitus with diabetic neuropathy, unspecified; I10 Essential (primary) hypertension; J44.9 Chronic obstructive pulmonary disease, unspecified | CPT/HCPCS: 80053; 80061; 83036 ==

== ENCOUNTER → 2021-06-20 07:44 | Outpatient (BNVA) | payer MEDICARE, MEDICAID, SELFPAY | PROVIDERS: PCP Nurse Practitioner Family; Visit Provider Nurse Practitioner | DX: F41.1 Generalized anxiety disorder (principal); F20.5 Residual schizophrenia | CPT/HCPCS: 99214 ==

== ENCOUNTER → 2021-06-28 07:58 | Outpatient (BNVA) | payer MEDICARE, MEDICAID, SELFPAY | PROVIDERS: PCP Nurse Practitioner Family; Visit Provider Orthopaedic Surgery | DX: Z48.89 Encounter for other specified surgical aftercare (principal) | CPT/HCPCS: 72100 ==

== ENCOUNTER 2021-07-05 13:48 | Outpatient (CLI) | payer MEDICARE, MEDICAID, SELFPAY | END 2021-07-05 13:49 | disposition home or self-care (01) | LOC: LAB 13:54 | PROVIDERS: PCP Nurse Practitioner Family; Visit Provider Orthopaedic Surgery | DX: E75.22 Gaucher disease (principal); Z83.49 Family history of other endocrine, nutritional and metabolic diseases | CPT/HCPCS: 36415 ==

== ENCOUNTER 2021-07-09 07:32 | Emergency (ER) | payer MEDICARE, MEDICAID, SELFPAY ==
[2021-07-09 07:45] VITALS: BP 133/81; PULSE 111; RESP 20; O2SAT 98; BMI 28.0
--- NOTE | 2021-07-09 07:50 | ED_ITS ---
HPI - Back Pain/Injury General: Chief Complaint: Back Pain/Injury Stated Complaint: severe back and leg pain Time Seen by Provider: 07/09/21 07:33 Source: patient and family Mode of arrival: wheelchair Limitations: no limitations History of Present Illness: Patient is a 40-year-old male who presents to ED today with a complaint of lower back pain. Patient states he has chronic lower back pains. In August 2020 he underwent surgery with Dr. Hannon who performed an L4-L5 and L5-S1 laminectomy and fusion. Patient states he subsequently developed loosening and nonunion of his hardware requiring another surgery last month (removal of hardware/L2-pelvis fusion). Family states they have a history of Gaucher's Disease and patient is currently being tested for this-results pending. Patient states since the surgery in May she has continued to have pain radiating a 7?8/10. He states when he gets up and ambulates it worsens. He is having radiation into his left leg. Patient does not complain of any urinary retention or bowel incontinence. MD elicited complaint: back pain Pertinent past history: prior back pain and back surgery Onset (ago): week(s) Timing: constant Severity: severe Similar Symptoms Previously: Yes Location: lumbar spine Radiation: left upper leg Exacerbating factors: movement and walking Relieving factors: none Associated symptoms: Deny abdominal pain, chills, dysuria, fatigue, fever(s) or hematuria Work related injury: No Review of Systems Const: Denies: fever(s), chills, body aches, fatigue or malaise Card: Denies: chest pain Resp: Denies: dyspnea GI: Denies: abdominal pain : Denies: flank pain, dysuria, urinary incontinence or hematuria Musc: Reports: back pain; Denies: neck pain, extremity pain, extremity swelling, joint pain or joint swelling Skin/Breast: Denies: rash Neuro: Denies: headache(s), numbness in extremities, weakness in extremities or sensory changes PFSH ED PFSH: Medical History Chronic back pain COPD (chronic obstructive pulmonary disease) Diabetes mellitus Diabetic neuropathy Elevated LFTs Encounter for screening laboratory testing for COVID-19 virus Folate deficiency Generalized anxiety disorder GERD (gastroesophageal reflux disease) Hyperlipidemia Hypertension Nonunion of spinal fusion Peripheral edema Psychiatric care Residual schizophrenia Viral gastroenteritis Vitamin D deficiency Surgical History History of vasectomy Family History Other Diabetes Hypertension Denies family history of Cancer Social History Smoking and tobacco status: never smoked Quit status (tobacco): has quit using tobacco Second hand smoke exposure: No Smoking risk assessment/counseling performed?: Yes Tobacco counseling given: counseling >3 minutes and other Alcohol intake: never Desire information about alcohol rehabilitation?: No Counseling given: No Desire information about substance/drug rehabilitation?: No Counseling given: No Adopted: No Caregiver/support person: No Lives independently: Yes Household members: family Housing: House Marital status: Single Number of children: 2 service: No Current occupational status: disabled History of recent travel: No Current gender identity: Male Physical Exam Const: COMMON NORMALS: no acute distress, patient oriented x3, no limitations, alert and well nourished GENERAL APPEARANCE: cooperative HENMT: COMMON NORMALS: normocephalic and atraumatic HEAD & SCALP: normoce phalic and atraumatic Resp: COMMON NORMALS: normal respiratory effort and clear to auscultation bilaterally AUSCULTATION: clear to auscultation bilaterally Cardio: COMMON NORMALS: regular rhythm RATE: tachycardic (slightly ) RHYTHM: regular rhythm GI: COMMON NORMALS: Normal to inspection, nondistended, normoactive bowel sounds present, Soft to palpation, non-tender and no masses PALPATION: Yes Soft to palpation : COMMON NORMALS: Yes no CVA tenderness BLADDER/KIDNEY EXAM: Yes no CVA tenderness Back/Pelvis: COMMON NORMALS: no CVA tenderness THORACIC SPINE/UPPER BACK: Yes normal to inspection, No thoracic spinal tenderness and No paraspinal muscle tenderness LUMBAR SPINE/LOWER BACK: Yes ROM limited, Yes pain with ROM, Yes lumbar spinal tenderness, No paraspinal muscle tenderness and No paraspinal muscle spasm PELVIS: Yes buttocks normal SACROILIAC JOINTS: Yes SI joints normal Extremity: COMMON NORMALS: normal to inspection, full ROM, capillary refill normal, no joint enlargement, no clubbing, cyanosis or edema, no calf tenderness and no pedal edema GENERAL: Yes normal exam except as noted Neuro: SHILOH COMA SCALE: document GCS findings [place] coma scale eye opening: Spontaneous [place] coma scale verbal response: Orientated [place] coma scale motor response: Obey commands [place] coma scale total score: 15 COMMON NORMALS: patient oriented x3, moves all extremities, no focal motor deficits and no sensory deficits noted SENSORIUM/ORIENTATION: Yes alert MOTOR EXAM: 5/5 motor strength present throughout Skin: NARRATIVE SKIN EXAM: surgical incision looks clean and infection free Course Vital Signs: Vital signs: Vital Signs Pulse Rate 106 H 07/09/21 09:04 Respiratory Rate 14 07/09/21 09:04 Blood Pressure 112/67 07/09/21 09:04 Pulse Oximetry 94 07/09/21 09:04 MDM - Back Pain/Injury Medical Decision Making Patient not have any neurologic deficits exam today. He is not complaining of any red flag signs or symptoms to prompt advanced emergency imaging at this time. I do not see any significant differences on his plain film XRs today when compared to studies done approximately a week ago. Recommend patient follow-up with Dr. Hannon soon as possible for further evaluation. Patient and family member in the room seem upset that they are not receiving CT imaging today. They state this is already been ordered from Dr. Hannon and they are just waiting on central scheduling. Explained to them that there is no emergent reason for CT imaging today as it would not change any form of management. Patient already takes oxycodone at home for pain-he can continue this as prescribed. Discharge Plan Discharge Patient Disposition: Home Clinical Impression: Status post lumbar spinal fusion, Postoperative back pain Chronic lower back pain Qualifiers: Back pain laterality: unspecified Sciatica presence: unspecified whether sciatica present Qualified Code(s): M54.50 - Low back pain, unspecified Condition: Stable Prescriptions: No Action cetirizine [Zyrtec] 10 mg tablet 10 mg PO DAILY Qty: 30 2RF (DME) Diabetic Shoes See Rx Instructions .Route .MEDSUPPLY Qty: 1 0RF Rx Instructions: As directed albuterol sulfate 2.5 mg /3 mL (0.083 %) solution for nebulization 2.5 mg INHALATION QID PRN (Reason: shortness of breath or wheezing) Qty: 75 2RF Janumet XR 100-1,000 mg tablet, ER multiphase 24 hr See Rx Instructions .ROUTE .COMPLEX Qty: 90 1RF Dose Instruction: TAKE ONE TABLET BY MOUTH DAILY Rx Instructions: TAKE ONE TABLET BY MOUTH DAILY famotidine 20 mg tablet See Rx Instructions .ROUTE .COMPLEX Qty: 180 1RF Dose Instruction: TAKE ONE TABLET BY MOUTH TWICE DAILY Rx Instructions: TAKE ONE TABLET BY MOUTH TWICE DAILY takes as needed hydrocodone-acetaminophen 10-325 mg tablet 1 tab PO Q4H PRN (Reason: pain) 7 Days Qty: 40 0RF nitroglycerin 0.4 mg tablet, sublingual 0.4 mg SUBLINGUAL Q5M PRN (Reason: Chest Pain) [place] custom sole support See Rx Instructions .Route .MEDSUPPLY Qty: 1 0RF Rx Instructions: As directed by courtney [place] diabetic shoes no inserts See Rx Instructions .Route .MEDSUPPLY Qty: 1 0RF Rx Instructions: As directed promethazine 25 mg tablet 25 mg PO Q6H PRN (Reason: nausea and vomiting) Qty: 30 0RF trazodone 100 mg tablet 200 mg PO .HS Qty: 60 2RF buspirone 10 mg tablet 10 mg PO BID Qty: 60 2RF albuterol sulfate [Ventolin HFA] 90 mcg/actuation HFA aerosol inhaler See Rx Instructions .ROUTE .COMPLEX Qty: 18 5RF Dose Instruction: INHALE TWO PUFFS INTO LUNGS EVERY 6 HOURS NEEDED FOR SHORTNESS OF BREATH OR WHEEZING Rx Instructions: INHALE TWO PUFFS INTO LUNGS EVERY 6 HOURS NEEDED FOR SHORTNESS OF BREATH OR WHEEZING prednisone 20 mg tablet 20 mg PO DAILY Qty: 15 0RF Rx Instructions: 60mg on day 1,2,3 40mg on day 4,5 20mg on day 6,7 nystatin 100,000 unit/mL suspension 100,000 unit mucous membrane DAILY 10 Days Qty: 480 0RF Rx Instructions: swish and gargle then swallow lidocaine HCl [Lidocaine Viscous] 2 % solution 1 applic mucous membrane QID PRN (Reason: pain) Qty: 100 0RF [place] Misc T See Rx Instructions .Route .MEDSUPPLY Qty: 1 0RF Rx Instructions: As directed ([facility] crutch Misc See Rx Instructions .ROUTE .MEDSUPPLY Qty: 2 0RF Rx Instructions: As directed fluticasone propionate [Flonase Allergy Relief] 50 mcg/actuation spray,suspension 2 spray intranasal DAILY Qty: 16 0RF Rx Instructions: administer into each nostril furosemide 40 mg tablet 40 mg PO QAM Qty: 90 0RF lisinopril 10 mg tablet 10 mg PO DAILY Qty: 90 0RF magnesium oxide 400 mg (241.3 mg magnesium) tablet See Rx Instructions .ROUTE .COMPLEX Qty: 30 0RF Dose Instruction: TAKE ONE TABLET BY MOUTH DAILY Rx Instructions: TAKE ONE TABLET BY MOUTH DAILY potassium chloride 10 mEq tablet extended release See Rx Instructions .ROUTE .COMPLEX Qty: 30 2RF Dose Instruction: TAKE ONE TABLET BY MOUTH DAILY Rx Instructions: TAKE ONE TABLET BY MOUTH DAILY desvenlafaxine succinate [Pristiq] 50 mg tablet extended release 24 hr 50 mg PO DAILY Qty: 30 2RF olanzapine [Zyprexa] 20 mg tablet 20 mg PO .HS Qty: 30 2RF propranolol 10 mg tablet 10 mg PO TID Qty: 90 2RF atorvastatin 80 mg tablet See Rx Instructions .ROUTE .COMPLEX Qty: 30 0RF Dose Instruction: TAKE ONE TABLET BY MOUTH DAILY Rx Instructions: TAKE ONE TABLET BY MOUTH DAILY Farxiga 10 mg tablet See Rx Instructions .ROUTE .COMPLEX Qty: 30 0RF Dose Instruction: TAKE ONE TABLET BY MOUTH EVERY MORNING Rx Instructions: TAKE ONE TABLET BY MOUTH EVERY MORNING budesonide-formoterol [Symbicort] 80-4.5 mcg/actuation HFA aerosol inhaler See Rx Instructions .ROUTE .COMPLEX Qty: 10.2 0RF Dose Instruction: INHALE 2 PUFFS INTO LUNGS TWICE DAILY Rx Instructions: INHALE 2 PUFFS INTO LUNGS TWICE DAILY diclofenac sodium 75 mg tablet,delayed release (DR/EC) See Rx Instructions .ROUTE .COMPLEX Qty: 60 0RF Hold Instructions: Resume on 06/20/21. Dose Instruction: TAKE ONE TABLET BY MOUTH TWICE DAILY NEEDED FOR PAIN Rx Instructions: TAKE ONE TABLET BY MOUTH TWICE DAILY NEEDED FOR PAIN oxycodone 10 mg tablet 10 mg PO Q4H PRN (Reason: pain) 7 Days Qty: 40 0RF fluconazole [Diflucan] 150 mg tablet 150 mg PO DAILY 7 Days Qty: 7 0RF oxycodone-acetaminophen 10-325 mg tablet 1 - 2 tab PO Q4H PRN (Reason: pain) 7 Days Qty: 40 0RF folic acid 1 mg tablet See Rx Instructions .ROUTE .COMPLEX Qty: 90 1RF Dose Instruction: TAKE ONE TABLET BY MOUTH DAILY Rx Instructions: TAKE ONE TABLET BY MOUTH DAILY oxycodone 10 mg tablet 10 mg PO Q4H PRN (Reason: pain) 7 Days Qty: 40 0RF gabapentin 600 mg tablet 600 mg PO TID 90 Days Qty: 270 2RF Rx Instructions: 600 mg PO three times daily; cyclobenzaprine 10 mg tablet 10 mg PO BID PRN (Reason: muscle spasm) Qty: 20 0RF ibuprofen 800 mg tablet 800 mg PO Q8H PRN (Reason: pain) Qty: 30 0RF Discharge Orders: Discharge ED (Routine); Ordered 07/09/21 Ordered By: Alyson Gonzales Referrals: Chelita Mari NP [Primary Care Provider] - Activity Restrictions/Additional Instructions: As we discussed I will place a referral with case management to see if they can contact central scheduling this week to work on getting patient CT scan performed. Please follow-up with Dr. Hannon's office as soon as possible for reevaluation/treatment of his lower back pain. Coding Level of Care Code ED Assistant [employer] Manager for Rona Cox Exam Comprehensive
--- NOTE | 2021-07-09 07:51 | XRR_ITS ---
PROCEDURE INFORMATION: Exam: XR Lumbosacral Spine Exam date and time: 07/09/2021 8:18 AM Age: 40 years old Clinical indication: Low back pain; Prior surgery; Surgery date: 1-6 months; Additional info: Surgery; Pain; Worried about loosening hardware TECHNIQUE: Imaging protocol: XR of the lumbosacral spine. Views: 2 or 3 views. Total images: 3 COMPARISON: CR XR lumbar spine 2-3V* [id number] 06/28/2021 8:05 AM FINDINGS: Bones/joints: L4 to sacrum Posterior spinal fusion is noted. Rods and pedicle screws are in place and there is no evidence of hardware failure. This finding is stable when compared to the prior exam. No acute fracture nor subluxation. No osseous erosion nor periosteal reaction. Soft tissues: Unremarkable. XR/XR lumbar spine 2-3V* [id number] IMPRESSION: No acute pathology.
[2021-07-09 08:08] VITALS: RESP 17
[2021-07-09] MEDS: ketorolac 60 mg/2 mL INJ IM (08:08)
[2021-07-09] MEDS: morphine 4 mg/mL SDV 1 mL IM (08:08)
[2021-07-09 09:04] VITALS: BP 112/67; PULSE 106; RESP 14; O2SAT 94
--- NOTE | 2021-07-11 15:51 | DCPLANNER ---
welfare manager had message to see if a CT that was ordered by Dr. Hannon could be scheduled this week. welfare manager called centralized scheduling, spoke with Melisa, was told that a mylogram was scheduled for 07.13.21 and that patient is aware. welfare manager informed the physician that appointment was scheduled for this week.
== END 2021-07-09 09:06 | disposition home or self-care (01) ==
PROVIDERS: Emergency Provider Physician Assistant; PCP Nurse Practitioner Family
DX: G89.18 Other acute postprocedural pain (principal); M54.59 Other low back pain; Z98.1 Arthrodesis status
CPT/HCPCS: 72100; 96372; 99283; J1885; J2270

== ENCOUNTER 2021-07-13 12:41 | Outpatient (CLI) | payer MEDICARE, MEDICAID, SELFPAY ==
--- NOTE | 2021-07-13 13:00 | IR_ITS ---
WS: [id number] MYELOGRAM LUMBAR SPINE Fluoroscopic guided lumbar myelogram CLINICAL INFORMATION: Z98.1 - Arthrodesis status COMPARISON: None. TECHNIQUE: The procedure, including risks, benefits, and complications, were discussed with the patie nt who agreed to proceed. A timeout was performed to confirm correct patient, procedure, and site. Using sterile technique, the patient was prepped and draped in the usual sterile fashion. After admin istration of local anesthesia using 1% preservative-free lidocaine and using fluoroscopic guidance, a 22-gauge spinal needle was advanced into the subarachnoid space at the L3-L4 level. Subsequently 13 cc of Omnipaque 240 was administered into the thecal sac. The needle was removed and hemostasis was a chieved. Spot fluoroscopic images were obtained. FLUOROSCOPIC TIME: 0min [id number] # of spot films: 7 Spot fluoroscopic images demonstrate postoperative changes pedicle screw fixation L3-L5 with interbod y fusion grafts L4-L5 and L5-S1. Bilateral sacroiliac fusion. Hardware appears in good position. No s ignificant instability on flexion extension. Please see CT myelogram report for additional detail. IR/IR myelogram sp lumbar [id number] IMPRESSION: 1. Uncomplicated lumbar myelogram. 2. No instability on flexion extension.
--- NOTE | 2021-07-13 13:00 | CT_ITS ---
WS: [id number] CT LUMBAR MYELOGRAM TECHNIQUE: CT myelogram of the lumbar spine with coronal and sagittal reformatted images. CLINICAL INFORMATION: Z98.1 - Arthrodesis status COMPARISON: CT March 17, 2021 DLP: 1271.[address] scans at [facility] use at least one of these dose optimization techniques: automated e xposure control; mA and/or kV adjustment per patient size (includes targeted exams where dose is matc hed to clinical indication); or iterative reconstruction. FINDINGS: Mild lumbar curve. No acute compression. Pedicle screw fixation L3-S1 with interconnecting rods. Inte rbody fusion grafts L4-L5 and L5-S1. Grade 1 anterolisthesis L5 on S1 measuring 5 mm appears stable. Bilateral sacroiliac fusion is new from previous. Revision of the S1 sacral screws. Mild lucency noemi g the proximal S1 fixation screws. Laminectomy defects L4 and L5. Interconnecting rods are intact. L1-L2: Normal. L2-L3: Mild annular bulging. Moderate facet arthropathy. Ligamentum flavum hypertrophy. Mild central canal stenosis slight impingement subarticular recess bilaterally.Mild LEFT greater than RIGHT forami nal narrowing. L3-L4: Shallow RIGHT pericentral protrusion. Impingement RIGHT subarticular recess. Moderate central canal stenosis. Impingement on traversing RIGHT L4 nerve root. Moderate facet arthropathy ligamentum flavum hypertrophy. Mild RIGHT greater than LEFT foraminal narrowing. L4-L5: Postoperative changes decompressive laminectomy defects. Slight narrowing of the RIGHT subarti cular recess. Spinal canal is patent. Mild RIGHT and no significant LEFT foraminal narrowing. L5-S1: Stable grade 1 anterolisthesis L5 on S1. Pedicle screw fixation with interbody fusion graft. N o significant thecal sac narrowing. Osteophytic ridging and postoperative changes with slight effacem ent of the ventral thecal sac. Slight contact of the LEFT S1 nerve root without significant impingeme nt. CT/CT lumbar spine w con [id number] IMPRESSION: 1. Pedicle screw fixation L3-S1 with interbody fusion grafts L4-L5 and L5-S1. Stable grade 1 anterolisthesis L5 on S1. 2. Bilateral pedicle screws at L3 are new compared to previous. Revision of th e S1 sacral screws with sacroiliac fusion. Slight lucency along the proximal S1 sacral screws. 3. Mild central canal stenosis L2-L3 due to mild disc bulging in combination w ith facet arthropathy and ligamentum flavum hypertrophy. Narrowing of the subar ticular recess bilaterally. 4. Shallow RIGHT pericentral protrusion L3-L4 with moderate central canal sten osis. Impingement traversing RIGHT L4 nerve root. 5. Slight narrowing of the RIGHT L4-L5 subarticular recess with postoperative changes. 6. Postoperative changes and osteophytic ridging ridging slightly encroaches o n the traversing LEFT S1 nerve root. 7. Mild foraminal narrowing worse at RIGHT L3-L4 and RIGHT L4-L5. 8. Mild to moderate chronic narrowing of the L5-S1 neural foramen with postope rative changes.
[2021-07-13] MEDS: iohexol 240 mg/mL 50 mL Btl INTRATHECA (14:19)
== END 2021-07-13 12:42 | disposition home or self-care (01) ==
LOC: RAD 12:47
PROVIDERS: PCP Nurse Practitioner Family; Visit Provider Orthopaedic Surgery
DX: Z98.1 Arthrodesis status (principal); M48.061 Spinal stenosis, lumbar region without neurogenic claudication; M51.26 Other intervertebral disc displacement, lumbar region
CPT/HCPCS: 62304; 72120; 72132

== ENCOUNTER → 2021-07-19 07:35 | Outpatient (BNVA) | payer MEDICARE, MEDICAID, SELFPAY | PROVIDERS: PCP Nurse Practitioner Family; Visit Provider Orthopaedic Surgery | DX: Z47.89 Encounter for other orthopedic aftercare (principal); Z98.890 Other specified postprocedural states; Z98.1 Arthrodesis status | CPT/HCPCS: 72100; 99024 ==

== ENCOUNTER → 2021-08-15 07:23 | Outpatient (BNVA) | payer MEDICARE, MEDICAID, SELFPAY | PROVIDERS: PCP Nurse Practitioner Family; Visit Provider Nurse Practitioner | DX: F20.5 Residual schizophrenia (principal); F41.1 Generalized anxiety disorder | CPT/HCPCS: 99214 ==

== ENCOUNTER → 2021-08-16 09:15 | Outpatient (BNVA) | payer MEDICARE, MEDICAID, SELFPAY | PROVIDERS: PCP Nurse Practitioner Family; Visit Provider Anesthesiology Pain Medicine | DX: E75.22 Gaucher disease (principal); M54.16 Radiculopathy, lumbar region; M47.816 Spondylosis without myelopathy or radiculopathy, lumbar region; M48.061 Spinal stenosis, lumbar region without neurogenic claudication; M43.16 Spondylolisthesis, lumbar region; M79.605 Pain in left leg; F17.210 Nicotine dependence, cigarettes, uncomplicated; Z79.891 Long term (current) use of opiate analgesic | CPT/HCPCS: 99215 ==

== ENCOUNTER 2021-08-23 11:39 | Oncology outpatient (recurring) (ONCR) | payer MEDICARE, MEDICAID, SELFPAY | END 2021-08-30 23:59 | disposition home or self-care (01) | LOC: ONCMED 11:39 | PROVIDERS: PCP Nurse Practitioner Family; Visit Provider Internal Medicine Medical Oncology | DX: Z53.9 Procedure and treatment not carried out, unspecified reason (principal) ==

== ENCOUNTER → 2021-08-30 07:50 | Outpatient (BNVA) | payer MEDICARE, MEDICAID, SELFPAY | PROVIDERS: PCP Nurse Practitioner Family; Visit Provider Orthopaedic Surgery | DX: Z47.89 Encounter for other orthopedic aftercare (principal); Z98.1 Arthrodesis status | CPT/HCPCS: 72100; 99024 ==

== ENCOUNTER → 2021-09-06 12:36 | Outpatient (BNVA) | payer MEDICARE, MEDICAID, SELFPAY | PROVIDERS: PCP Nurse Practitioner Family; Visit Provider Physician Assistant | DX: Z47.89 Encounter for other orthopedic aftercare (principal); Z98.1 Arthrodesis status; E75.22 Gaucher disease | CPT/HCPCS: 72100; 99024 ==

== ENCOUNTER → 2021-09-14 07:54 | Outpatient (BNVA) | payer MEDICARE, MEDICAID, SELFPAY | PROVIDERS: PCP Nurse Practitioner Family; Visit Provider Podiatrist Foot & Ankle Surgery | DX: M79.671 Pain in right foot (principal); M79.672 Pain in left foot; M21.41 Flat foot [pes planus] (acquired), right foot; M21.42 Flat foot [pes planus] (acquired), left foot; G62.9 Polyneuropathy, unspecified | CPT/HCPCS: 99213; 99214 ==

== ENCOUNTER 2021-09-19 08:37 | Outpatient (CLI) | payer MEDICARE, MEDICAID, SELFPAY ==
--- NOTE | 2021-09-19 09:30 | CT_ITS ---
WS: [id number] CT LUMBAR SPINE TECHNIQUE: Noncontrast CT of the lumbar spine with coronal and sagittal reformatted images. CLINICAL INFORMATION: pain COMPARISON: CT July 13, 2021 DLP: 1402.[address] scans at [facility] use at least one of these dose optimization techniques: automated e xposure control; mA and/or kV adjustment per patient size (includes targeted exams where dose is matc hed to clinical indication); or iterative reconstruction. FINDINGS:Dislocation of the LEFT interconnecting rocio from the L3 fastener. Angulation of the fastener . LEFT interconnecting rocio dislocated laterally new from previous. This is best visualized on coronal imaging. RIGHT interconnecting rocio appears intact. Lucency along the bilateral L3 pedicle screws shekhar picious for loosening appears progressed. Stable lucency along the RIGHT S1 pedicle screw. Mild lumbar curve. No acute compression. Pedicle screw fixation L3-S1 with interconnecting rods. Inte rbody fusion grafts L4-L5 and L5-S1. Grade 1 anterolisthesis L5 on S1 measuring 5 mm appears unchange d. Bilateral sacroiliac fusion is stable. Laminectomy defects L4 and L5. Immature dorsolateral bony fusion. Immature interbody fusion grafts L4-L5 and L5-S1 without evidence of bony bridging beyond the confines of the graft. L1-L2: Normal. L2-L3: Mild annular bulging. Mild central canal stenosis. Mild LEFT foraminal narrowing. L3-L4: Mild central canal stenosis. Mild annular bulging. Impingement on the subarticular recess RIGH T greater than LEFT. Mild RIGHT foraminal narrowing. L4-L5: Pedicle screw fixation with interbody fusion. Mild RIGHT foraminal narrowing. Spinal canal is patent. Laminectomy defects. L5-S1: Laminectomy defects. Grade 1 anterolisthesis measuring 5 mm. Osteophytic ridging with slight e ffacement of ventral thecal sac. Visualized pelvic bony structures: Normal. Paravertebral soft tissues: Normal. CT/CT lumbar spine wo con* [id number] IMPRESSION: 1. Lucency along the bilateral L3 pedicle screws appears progressed compared t o previous suspicious for loosening. 2. Lateral dislocation of the LEFT interconnecting rocio from the L3 posterior f astener with angulation of the fastener. This is new from previous. RIGHT inter connecting rocio appears in good position. 3. Stable lucency along the RIGHT S1 pedicle screw 4. Fusion otherwise appears unchanged. Stable grade 1 anterolisthesis L5 on S1 . 5. Immature interbody fusion grafts L4-L5 and L5-S1 without significant bony b ridging beyond the confines of the grafts. Alignment is unchanged. 6. No acute compression fractures.
== END 2021-09-19 08:38 | disposition home or self-care (01) ==
LOC: RAD 08:38
PROVIDERS: PCP Nurse Practitioner Family; Visit Provider Orthopaedic Surgery
DX: M54.16 Radiculopathy, lumbar region (principal); Z98.1 Arthrodesis status
CPT/HCPCS: 72131

== ENCOUNTER → 2021-09-20 09:03 | Outpatient (BNVA) | payer MEDICARE, MEDICAID, SELFPAY | PROVIDERS: PCP Nurse Practitioner Family; Visit Provider Anesthesiology Pain Medicine | DX: E75.22 Gaucher disease (principal); M54.16 Radiculopathy, lumbar region; M47.816 Spondylosis without myelopathy or radiculopathy, lumbar region; M48.061 Spinal stenosis, lumbar region without neurogenic claudication; M43.17 Spondylolisthesis, lumbosacral region; M79.605 Pain in left leg; Z79.891 Long term (current) use of opiate analgesic | CPT/HCPCS: 99215 ==

== ENCOUNTER → 2021-09-22 09:28 | Outpatient (BNVA) | payer MEDICARE, MEDICAID, SELFPAY | PROVIDERS: PCP Nurse Practitioner Family; Visit Provider Orthopaedic Surgery | DX: Z98.1 Arthrodesis status (principal); Z47.89 Encounter for other orthopedic aftercare; T84.296A Other mechanical complication of internal fixation device of vertebrae, initial encounter | CPT/HCPCS: 72100; 99024 ==

== ENCOUNTER → 2021-09-27 08:27 | Outpatient (BNVA) | payer MEDICARE, MEDICAID, SELFPAY | PROVIDERS: PCP Nurse Practitioner Family; Visit Provider Orthopaedic Surgery | DX: M54.50 Low back pain, unspecified (principal); Z47.89 Encounter for other orthopedic aftercare; Z98.1 Arthrodesis status | CPT/HCPCS: 99024; 99213 ==

== ENCOUNTER → 2021-09-28 10:12 | Outpatient (BNVA) | payer MEDICARE, MEDICAID, SELFPAY | PROVIDERS: PCP Nurse Practitioner Family; Visit Provider Otolaryngology | DX: R13.10 Dysphagia, unspecified (principal); K21.9 Gastro-esophageal reflux disease without esophagitis; M26.621 Arthralgia of right temporomandibular joint; B37.89 Other sites of candidiasis; R49.0 Dysphonia; J38.3 Other diseases of vocal cords; F17.210 Nicotine dependence, cigarettes, uncomplicated | CPT/HCPCS: 31575; 99204; 99205 ==

== ENCOUNTER → 2021-10-06 09:37 | Outpatient (BNVA) | payer MEDICARE, MEDICAID, SELFPAY | PROVIDERS: PCP Nurse Practitioner Family; Visit Provider Orthopaedic Surgery | DX: M54.50 Low back pain, unspecified (principal); Z98.1 Arthrodesis status | CPT/HCPCS: 72100; 99213 ==

== ENCOUNTER 2021-10-10 06:00 | Day surgery (SDC) | payer MEDICARE, MEDICAID, SELFPAY ==
[2021-10-07 14:52] VITALS: BMI 28.0
== END 2021-10-10 06:01 | disposition home or self-care (01) ==
LOC: OR 01-09 21:14
PROVIDERS: PCP Nurse Practitioner Family; Visit Provider Orthopaedic Surgery
DX: Z01.818 Encounter for other preprocedural examination (principal)
CPT/HCPCS: 80053

== ENCOUNTER 2021-11-04 06:15 | Day surgery (SDC) | payer MEDICARE, MEDICAID, SELFPAY ==
[2021-11-04 06:16] VITALS: BP 118/89; PULSE 99; RESP 20; TEMP 36.9; O2SAT 97; BMI 29.5
--- NOTE | 2021-11-04 06:19 | CT_ITS ---
WS: [id number] CT scan of the abdomen and pelvis without Oral and with IV contrast. Additional two-dimensional nuzhat nal and sagittal reconstruction was performed. 11/04/2021 Clinical Data: abd pain Comparison: CT abdomen pelvis, 11/21/2009 DLP: 832.[address] scans at [facility] use at least one of these dose optimization techniques: automated e xposure control; mA and/or kV adjustment per patient size (includes targeted exams where dose is matc hed to clinical indication); or iterative reconstruction. Findings: The lower lungs show no nodules, masses or effusions. The liver, gallbladder, spleen, adrenal glands and pancreas are normal. The kidneys show equal bilateral contrast excretion with no cyst or masses. The abdominal aorta is normal in size with minimal calcification in the wall. No appendicitis or diverticulitis is seen. There is a probably an ingested tablet in the stomach. The small bowel and colon show no abnormalities. No abscess, adenopathy, ascites, mass, obstruction or f ree air is seen. The bladder is distended. No inguinal hernia is seen. There is a posterior lumbosacral fusion with bilateral pedicle screws and connecting rods. There is a 0.5 cm subluxation of L5 on S1. CT/CT abdomen pelvis w con* [id number] Impression: 1. Negative for acute intra-abdominal or pelvic abnormalities. 2. Distended urinary bladder
[2021-11-04 06:37] LABS: Basophils # 0.1 10^3/uL (0.0-0.1); Basophils % 0.6 %; Eosinophils # 0.1 10^3/uL (0.0-0.8); Eosinophils % 0.4 %; Hematocrit 45.7 % (42.0-52.0); Hemoglobin 14.7 g/dL (11.7-16.6); Lymphocytes # 2.7 10^3/uL (0.8-4.8); Lymphocytes % 19.4 %; Mean Corpuscular HGB Conc 32.2 g/dL (30.0-36.0); Mean Corpuscular Hemoglobin 25.9 pg (28.0-34.0); Mean Corpuscular Volume 80.6 fl (80-94); Mean Platelet Volume 9.2 fL (7.4-10.4); Monocytes # 0.8 10^3/uL (0.2-0.9); Monocytes % 5.8 %; Neutrophils # 10.06 10^3/uL (1.8-7.7); Nucleated Red Blood Cells % 0 %; Platelet Count 395 10^3/cmm (130-400); Red Blood Count 5.67 10^6/uL (4.1-5.3); Red Cell Distribution Width 14.4 % (12.1-15.1); White Blood Count 13.8 10^3/uL (4.0-10.0)
[2021-11-04] MEDS: iohexol 350 mg/mL 100 mL Btl IV (06:53)
--- NOTE | 2021-11-04 07:00 | ECG_ITS ---
[facility] Test Date: 2021-11-04 Pat Name: Aries Shock Department: Room: Gender: Male Colleter: : 1980 Requested By: Rick Ramirez Order Number: [id number] Mandel MD: Joanne Krishnamurthy M.D. Measurements Intervals [place] Rate: 100 P: 62 PA: 171 QRS: 55 QRSD: 98 T: 52 QT: 331 QTc: 428 Interpretive Statements SINUS TACHYCARDIA No previous ECG available for comparison Electronically Signed On 11-04-2021 11:22:08 CDT by Joanne Krishnamurthy M.D. [email or web address]
--- NOTE | 2021-11-04 07:04 | ED_ITS ---
HPI - GI Bleed General: Chief complaint: GI Bleed Stated complaint: ABD PAIN Time Seen by Provider: 11/04/21 06:16 Source: patient Mode of arrival: EMS Limitations: no limitations History of Present Illness: 40-year-old male presents to the emergency room with complaints of nausea and vomiting this morning. Into episodes of what he describes as bloody emesis. First episode streaks of what he thought was bright red blood said the second 1 is little more orange in color. He has not previously had upper GI bleeds he is not required transfusions. He has never had a endoscopy he is on a proton pump inhibitor. complaint: blood streaked emesis Onset (ago): hour(s) Pain Consistency: intermittent Severity: mild Relieving factors: none Exacerbating factors: none Associated symptoms: Reports nausea, poor appetite and vomiting; Denies abdominal pain, chills, easy bruising, epistaxis, fever(s), headache(s), malaise, other bleeding, rash, syncope or weakness Treatments Prior to Arrival: none Review of Systems Const: Denies: fever(s), chills, fatigue or malaise ENMT: Denies: epistaxis Card: Denies: chest pain or syncope Resp: Denies: dyspnea, productive cough or non-productive cough GI: Reports: nausea and vomiting; Denies: abdominal pain : Denies: flank pain, difficulty urinating, dysuria, urinary frequency or urinary urgency Skin/Breast: Denies: rash or pruritus Neuro: Denies: headache(s) Ney/Lymph: Denies: easy bruising PFS ED PFSH: Medical History Chronic back pain COPD (chronic obstructive pulmonary disease) Diabetes mellitus Diabetic neuropathy Elevated LFTs Encounter for screening laboratory testing for COVID-19 virus Folate deficiency Generalized anxiety disorder GERD (gastroesophageal reflux disease) Hyperlipidemia Hypertension Nonunion of spinal fusion Peripheral edema Psychiatric care Residual schizophrenia Viral gastroenteritis Vitamin D deficiency Surgical History History of vasectomy Family History Other Diabetes Hypertension Denies family history of Cancer Social History Smoking and tobacco status: current every day smoker cigarettes Years cigarettes smoked: 22 Quit status (tobacco): has tried quititng Smoking risk assessment/counseling performed?: Yes Tobacco counseling given: counseling >3 minutes and other Alcohol intake: never Desire information about alcohol rehabilitation?: No Counseling given: No Desire information about substance/drug rehabilitation?: No Counseling given: No Adopted: No Caregiver/support person: No Lives independently: Yes Household members: family Housing: House Marital status: Single Number of children: 2 service: No Current occupational status: disabled History of recent travel: No Current gender identity: Male Physical Exam Const: GENERAL APPEARANCE: cooperative and comfortable ORIENTATION /CONSCIOUSNESS: Yes awake, Yes oriented to person, Yes oriented to place and Yes oriented to time HENMT: COMMON NORMALS: normocephalic, atraumatic and hearing grossly normal bilaterally HEAD & SCALP: normocephalic and atraumatic Resp: COMMON NORMALS: normal respiratory effort, No retractions, No use of accessory muscles and clear to auscultation bilaterally AUSCULTATION: clear to auscultation bilaterally Cardio: COMMON NORMALS: regular rate, regular rhythm and No murmurs present (Cardio) RATE: regular rate RHYTHM: regular rhythm GI: COMMON NORMALS: Soft to palpation and No hepatosplenomegaly present AUSCULTATION: Yes normoactive bowel sounds PALPATION: Yes Soft to palpation, No Tenderness to palpation present (GI), No Guarding due to palpation present (GI) and Yes No hepatosplenomegaly present Extremity: COMMON NORMALS: normal to inspection, capillary refill normal, no clubbing, cyanosis or edema, no calf tenderness and no pedal edema Neuro: SENSORIUM/ORIENTATION: Yes oriented to person, Yes oriented to place and Yes oriented to time Skin: COMMON NORMALS: no rashes or lesions noted GENERAL SKIN EXAM: no rashes or lesions noted Course Vital Signs: Vital signs: Vital Signs Temperature 98.0 F 11/04/21 11:02 Pulse Rate 106 H 11/04/21 11:17 Respiratory Rate 18 11/04/21 11:17 Blood Pressure 119/67 11/04/21 11:17 Pulse Oximetry 93 11/04/21 11:17 Oxygen Delivery Me thod 11/04/21 11:17 MDM - GI Bleed Medical Decision Making Patient discharged from the ER to outpatient GI lab where Dr. Barr will see him. Patient Dr. Ferguson is on-call plans to do EGD pending results likely she was discharged home. He has consultation and procedure notes. Lab Data : 11/04/21 06:28 08 06:28 Radiology Impressions Abdomen/Pelvis CT 11/04/21 06:19 Impression: 1. Negative for acute intra-abdominal or pelvic abnormalities. 2. Distended urinary bladder Laboratory Results WBC 13.8 10^3/uL (4.0-10.0) H 11/04/21 06:28 RBC 5.67 10^6/uL (4.1-5.3) H 11/04/21 06:28 Hgb 14.7 g/dL (11.7-16.6) 11/04/21 06:28 Hct 45.7 % (42.0-52.0) 11/04/21 06:28 MCV 80.6 fl (80-94) 11/04/21 06:28 MCH 25.9 pg (28.0-34.0) L 11/04/21 06:28 MCHC 32.2 g/dL (30.0-36.0) 11/04/21 06:28 RDW 14.4 % (12.1-15.1) 11/04/21 06:28 Plt Count 395 10^3/cmm (130-400) 11/04/21 06:28 MPV 9.2 fL (7.4-10.4) 11/04/21 06:28 Neut % (Auto) 73.0 % 11/04/21 06:28 Lymph % (Auto) 19.4 % 11/04/21 06:28 [place] % (Auto) 5.8 % 11/04/21 06:28 Eos % (Auto) 0.4 % 11/04/21 06:28 Baso % (Auto) 0.6 % 11/04/21 06:28 Neut # (Auto) 10.06 10^3/uL (1.8-7.7) H 11/04/21 06:28 Lymph # (Auto) 2.7 10^3/uL (0.8-4.8) 11/04/21 06:28 [place] # (Auto) 0.8 10^3/uL (0.2-0.9) 11/04/21 06:28 Eos # (Auto) 0.1 10^3/uL (0.0-0.8) 11/04/21 06:28 Baso # (Auto) 0.1 10^3/uL (0.0-0.1) 11/04/21 06:28 Nucleated RBC % (auto) 0 % 11/04/21 06:28 Nucleated RBCs # 0.0 /100WBC 11/04/21 06:28 Sodium 137 mmol/L (136-145) 11/04/21 06:28 Potassium 3.7 mmol/L (3.5-5.1) 11/04/21 06:28 Chloride 99 mmol/L (98-107) 11/04/21 06:28 Carbon Dioxide 26 mmol/L (22-29) 11/04/21 06:28 Anion Gap 15.7 (5-19) 11/04/21 06:28 BUN 8 mg/dL (6-20) 11/04/21 06:28 Creatinine 0.8 mg/dL (0.7-1.2) 11/04/21 06:28 GFR Calculation 108.2 mL/min (90-130) 11/04/21 06:28 Glucose 118 mg/dL (65-115) H 11/04/21 06:28 Calculated Osmolality 283 mOsm/kg (285-295) L 11/04/21 06:28 Calcium 9.3 mg/dL (8.5-10.5) 11/04/21 06:28 Total Bilirubin 0.2 mg/dL (0.15-1.2) 11/04/21 06:28 AST 25 U/L (0-40) 11/04/21 06:28 ALT 23 U/L (0-41) 11/04/21 06:28 Alkaline Phosphatase 180 IU/L (40-130) H 11/04/21 06:28 Total Protein 7.1 g/dL (6.6-8.7) 11/04/21 06:28 Albumin 4.4 g/dL (3.5-5.2) 11/04/21 06:28 Globulin 2.7 g/dL (1.3-4.6) 11/04/21 06:28 Lipase 18 U/L (13-60) 11/04/21 06:28 Urine Color Straw (Yellow) 11/04/21 07:03 Urine Appearance Clear (CLEAR) 11/04/21 07:03 Urine pH 6.5 (5-7) 11/04/21 07:03 Ur Specific [place] 1.000 (1.005-1.030) L 11/04/21 07:03 Urine Protein Neg (Negative) 11/04/21 07:03 Urine Glucose (UA) 4+ (Normal) H 11/04/21 07:03 Urine Ketones Negative (Negative) 11/04/21 07:03 Urine Blood Neg (Negative) 11/04/21 07:03 Urine Nitrate Negative (Negative) 11/04/21 07:03 Urine Bilirubin Neg (Negative) 11/04/21 07:03 Urine Urobilinogen Norm mg/dL (Negative) 11/04/21 07:03 Ur Leukocyte Esterase Negative (Negative) 11/04/21 07:03 Discharge Plan Discharge Patient Disposition: Home Clinical Impression: Nausea & vomiting, GERD (gastroesophageal reflux disease) Condition: Stable Discharge Orders: Discharge Order (Routine); Ordered 11/04/21 Ordered By: Valentin Barr Discharge ED (Routine); Ordered 11/15/21 Ordered By: Rick Tristan Discharge Diet: Advance as tolerated Discharge Activity: Resume usual activity Coding Level of Care Code ED Life Assurance Representative for Rona Cox
[2021-11-04 07:07] LABS: Alanine Aminotransferase 23 U/L (0-41); Albumin Level 4.4 g/dL (3.5-5.2); Alkaline Phosphatase 180 IU/L (40-130); Anion Gap 15.7 (5-19); Aspartate Amino Transferase 25 U/L (0-40); Blood Urea Nitrogen 8 mg/dL (6-20); Calcium 9.3 mg/dL (8.5-10.5); Carbon Dioxide 26 mmol/L (22-29); Chloride 99 mmol/L (98-107); Globulin 2.7 g/dL (1.3-4.6); Glomerular Filtration Rate 108.2 mL/min (90-130); Glucose 118 mg/dL (65-115); Lipase 18 U/L (13-60); Osmolality Calculated 283 mOsm/kg (285-295); Potassium 3.7 mmol/L (3.5-5.1); Sodium 137 mmol/L (136-145); Total Bilirubin 0.2 mg/dL (0.15-1.2); Total Protein 7.1 g/dL (6.6-8.7)
[2021-11-04 07:16] LABS: Add Urine Microscopic? NO; Charge for UA Resulting for Rev
[2021-11-04 07:25] LABS: Urine Appearance Clear (CLEAR); Urine Color Straw (Yellow); pH Urine 6.5 (5-7)
[2021-11-04 07:26] LABS: Bilirubin Urine Neg (Negative); Blood Urine Neg (Negative); Glucose Urine UA 4+ (Normal); Ketones Urine Negative (Negative); Leukocyte Esterase Urine Negative (Negative); Nitrate Urine Negative (Negative); Protein Urine Neg (Negative); Urobilinogen Urine Norm (Negative)
[2021-11-04 07:30] VITALS: BP 118/89; PULSE 102; RESP 16
[2021-11-04] MEDS: ondansetron 2 mg/ML SDV 2 mL 4 MG IVP (08:01)
[2021-11-04] MEDS: pantoprazole 40 mg SDV IVP (08:01)
[2021-11-04 08:07] VITALS: BP 117/79; PULSE 105; RESP 17; O2SAT 97
--- NOTE | 2021-11-04 09:22 | ECG_ITS ---
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 Measurements Intervals [place] Rate: 104 P: 67 SD: 164 QRS: 60 QRSD: 88 T: 51 QT: 324 QTc: 428 Interpretive Statements SINUS TACHYCARDIA Compared to ECG 11/04/2021 07:00:15 No significant changes Electronically Signed On 11-04-2021 11:22:01 CDT by Joanne Krishnamurthy M.D. [email or web address] county hospitalEaspring Material Technologyselect medical [facility], [place].[employer]/store/NU/[id number]/[id number] f
--- NOTE | 2021-11-04 09:26 | P.ANESASSM_ITS ---
Pre-Anesthetic Assessment Height/Weight: Height 1.75 m Weight 90.718 kg Temp Pulse Resp BP Pulse Ox O2 Del Method 98.4 F 105 H 17 117/79 97 11/04/21 06:16 11/04/21 08:07 11/04/21 08:07 11/04/21 08:07 11/04/21 08:07 11/04/21 06:16 Preop Diagnosis: n/v Operation Date: 11/04/21 09:30 Proposed Procedures p EGD(Not Applicable) - Valentin Barr MD Familial anesthetic complications: none Was Beta Bryanna taken within 24 hours: Yes Was Clonidine taken within 24 hours: N/A Last intake: 19911/04/21 water with pills , nothing to eat since 11/03/21 Social No alcohol and No tobacco Exam alert, oriented x 3 and regular rate & rhythm wheezing b/l Airway Submandibular: within normal limits Cervical ROM: within normal limits Mallampati: Class II Dentition: false Pulmonary Chronic Obstructive Pulmonary Disease Vocal cord leukoplakia Chronic hoarseness Pharyngeal candidiasis TMJ arthralgia CV/HEM Denies CAD METS > 4 None reported Hepatic Gaucher disease GI Gastroesophageal Reflux Disease Worms in stool Diarrhea Odynophagia Dysphagia Hemataemesis Metabolic Diabetes Mellitus Musc/skel Lower Back Pain (S/P spinal fusion, lumbar radiculopathy ) Neuropsych Anxiety and Neuropathy Residual schizophrenia Anesthetic Plan ASA status: 3 Anesthesia: Anesthesia Evaluation, General, MAC and Regional (specify below) Other: I discussed with the patient risks, goals, and benefits of MAC and general anesthesia. We discussed spectrum of MAC anesthesia including conversion to general as well as possibility of recall of intraoperative stimuli including discomfort/pain. Patient agrees to proceed with MAC. Risk of > 500 ml blood loss (7ml/kg in children): No Medications/Allergies Home Medications Medication Instructions Recorded Confirmed Last Taken Type custom sole support #1 ea 07/14/20 10/13/21 Unknown Rx diabetic shoes no inserts #1 ea 07/14/20 10/13/21 Unknown Rx Diabetic Shoes #1 ea 08/13/20 10/13/21 Unknown Rx albuterol sulfate 2.5 mg (3 mL) inhalation QID PRN 11/12/20 10/13/21 05/31/21 Rx shortness of breath or wheezing #75 mL Custom Orthotics - Alpha and [place] #1 ea 09/14/21 10/13/21 Unknown Rx (1 pair) tizanidine 4 mg tablet (Zanaflex) 4 mg PO Q8H PRN muscle spasticity 09/14/21 10/13/21 Unknown Rx #90 tabs omeprazole 20 mg capsule,delayed 20 mg PO DAILY 90 days #90 caps 09/28/21 10/13/21 Unknown Rx release topiramate 50 mg tablet (Topamax) 50 mg PO BID Pain 10/07/21 10/13/21 Unknown History promethazine 25 mg tablet 25 mg PO Q6H PRN nausea and 10/10/21 10/13/21 Unknown Rx vomiting #60 tabs gabapentin 800 mg tablet 800 mg PO TID 30 days #90 tabs 10/24/21 Unknown Rx ivermectin 3 mg tablet 12 mg PO DAILY 3 days #12 tabs 10/25/21 Unknown Rx propranolol 10 mg tablet 10 mg PO TID #90 tabs 10/27/21 Unknown Rx oxycodone 10 mg tablet 10 - 20 mg PO Q4H PRN pain 7 days 11/03/21 Unknown Rx #40 tabs albuterol sulfate 90 mcg/actuation 2 puff inhalation Q6H PRN 11/04/21 11/04/21 Unknown History aerosol inhaler (Ventolin HFA) Shortness Of Breath atorvastatin 80 mg tablet 80 mg PO BEDTIME 11/04/21 11/04/21 Unknown History budesonide-formoterol HFA 80 2 puff inhalation BID 11/04/21 11/04/21 Unknown History mcg-4.5 mcg/actuation aerosol inhaler (Symbicort) cetirizine 10 mg tablet (Zyrtec) 10 mg PO DAILY PRN Allergy Symptoms 11/04/21 11/04/21 Unknown History cholecalciferol (vitamin D3) 50 50 mcg PO QAM 11/04/21 11/04/21 11/04/21 History mcg (2,000 unit) capsule dapagliflozin 10 mg tablet 10 mg PO QAM 11/04/21 11/04/21 11/04/21 History (Farxiga) desvenlafaxine succinate 50 mg 50 mg PO QAM 11/04/21 11/04/21 11/04/21 History tablet,extended release 24 hr (Pristiq) folic acid 1 mg tablet 1 mg PO QAM 11/04/21 11/04/21 11/04/21 History furosemide 40 mg tablet 40 mg PO QAM 11/04/21 11/04/21 11/04/21 History lisinopril 10 mg tablet 10 mg PO QAM 11/04/21 11/04/21 11/04/21 History magnesium oxide 400 mg (241.3 mg 400 mg PO DAILY 11/04/21 11/04/21 Unknown History magnesium) tablet meclizine 25 mg tablet 25 mg PO QID PRN Dizziness 11/04/21 11/04/21 Unknown History nitroglycerin 0.4 mg sublingual 0.4 mg sublingual Q5M PRN Chest 11/04/21 11/04/21 Unknown History tablet (Nitrostat) Pain olanzapine 20 mg tablet (Zyprexa) 20 mg PO BEDTIME 11/04/21 11/04/21 Unknown History potassium chloride 10 mEq 10 meq PO QAM 11/04/21 11/04/21 11/04/21 History tablet,extended release sitagliptin 100 mg-metformin ER 1 tab PO QAM 11/04/21 11/04/21 11/04/21 History 1,000 mg tablet,extended [id number] mp (Janumet XR) tamsulosin 0.4 mg capsule (Flomax) 0.4 mg PO DAILY 11/04/21 11/04/21 Unknown History Allergies Allergy/AdvReac Type Severity Reaction Status Date / Time quetiapine [From Seroquel] Allergy SEIZURES Verified 10/13/21 12:06 [facility] Anesthesia Medical History Chronic back pain COPD (chronic obstructive pulmonary disease) Diabetes mellitus Diabetic neuropathy Elevated LFTs Encounter for screening laboratory testing for COVID-19 virus Folate deficiency Generalized anxiety disorder GERD (gastroesophageal reflux disease) Hyperlipidemia Hypertension Nonunion of spinal fusion Peripheral edema Psychiatric care Residual schizophrenia Viral gastroenteritis Vitamin D deficiency Surgical History History of vasectomy Family History Other Diabetes Hypertension Denies family history of Cancer Social History Smoking and tobacco status: never smoked Quit status (tobacco): has tried quititng Smoking risk assessment/counseling performed?: Yes Tobacco counseling given: counseling >3 minutes and other Alcohol intake: never Desire information about alcohol rehabilitation?: No Counseling given: No Desire information about substance/drug rehabilitation?: No Counseling given: No Adopted: No Caregiver/support person: No Lives independently: Yes Household members: family Housing: House Marital status: Single Number of children: 2 service: No Current occupational status: disabled History of recent travel: No Current gender identity: Male Data Anesthesia : 11/04/21 06:28 11/04/21 06:28 Short CBC 11/04/21 Range/Units 06:28 WBC 13.8 H (4.0-10.0) 10^3/uL Hgb 14.7 (11.7-16.6) g/dL Hct 45.7 (42.0-52.0) % MCV 80.6 (80-94) fl Plt Count 395 (130-400) 10^3/cmm Neut % (Auto) 73.0 % Neut # (Auto) 10.06 H (1.8-7.7) 10^3/uL BMP 11/04/21 06:28 Sodium 137 Potassium 3.7 Chloride 99 Carbon Dioxide 26 BUN 8 Creatinine 0.8 Glucose 118 H Calcium 9.3 Liver Function 11/04/21 Range/Units 06:28 Total Bilirubin 0.2 (0.15-1.2) mg/dL AST 25 (0-40) U/L ALT 23 (0-41) U/L Alkaline Phosphatase 180 H (40-130) IU/L Albumin 4.4 (3.5-5.2) g/dL Urine 11/04/21 Range/Units 07:03 Urine Color Straw (Yellow) Urine Appearance Clear (CLEAR) Urine pH 6.5 (5-7) Ur Specific [place] 1.000 L (1.005-1.030) Urine Protein Neg (Negative) Urine Glucose (UA) 4+ H (Normal) Urine Ketones Negative (Negative) Urine Nitrate Negative (Negative) Urine Bilirubin Neg (Negative) Ur Leukocyte Esterase Negative (Negative) Cardiac Studies: No Data to Display
[2021-11-04] MEDS: sodium chloride 0.9% 1,000 ML 999 ML IV (09:29)
--- NOTE | 2021-11-04 09:35 | PC.PHAR ---
pts family verified pts medications-states the pt took am meds but thinks they may have came back up-pts family states the pt still takes atorvastatin 80mg hs ext med history doesnt show when last filled rx written 05/09/21-
[2021-11-04 09:46] VITALS: BP 125/80; PULSE 104; RESP 16; TEMP 36.3; O2SAT 97
--- NOTE | 2021-11-04 10:50 | PM.HP ---
Providers/Chief Complaint Primary Care Provider: Chelita Mari NP Chief Complaint: AND PAIN History of Present Illness Aries Gutierrez is a 40 year old male who presented to the ER with complaints of abdominal pain, nausea and vomiting since this morning. Patient states that he was fine yesterday. No similar episodes in the past. No prior history of PUD or significant GERD though he states that he was put on Nexium in the past which helped with his abdominal pain. Patient was initially concerned about hematemesis. CT abdomen pelvis did not show any acute pathology Medications/Allergies Home Medications Medication Instructions Recorded Confirmed Last Taken Type custom sole support #1 ea 07/14/20 11/04/21 Unknown Rx diabetic shoes no inserts #1 ea 07/14/20 11/04/21 Unknown Rx Diabetic Shoes #1 ea 08/13/20 11/04/21 Unknown Rx albuterol sulfate 2.5 mg (3 mL) inhalation QID PRN 11/12/20 11/04/21 05/31/21 Rx shortness of breath or wheezing #75 mL Custom Orthotics - Alpha and [place] #1 ea 09/14/21 11/04/21 Unknown Rx (1 pair) tizanidine 4 mg tablet (Zanaflex) 4 mg PO Q8H PRN muscle spasticity 09/14/21 11/04/21 Unknown Rx #90 tabs omeprazole 20 mg capsule,delayed 20 mg PO DAILY 90 days #90 caps 09/28/21 11/04/21 Unknown Rx release topiramate 50 mg tablet (Topamax) 50 mg PO BID 10/07/21 11/04/21 Unknown History promethazine 25 mg tablet 25 mg PO Q6H PRN nausea and 10/10/21 11/04/21 Unknown Rx vomiting #60 tabs gabapentin 800 mg tablet 800 mg PO TID 30 days #90 tabs 10/24/21 11/04/21 11/04/21 Rx ivermectin 3 mg tablet 12 mg PO DAILY 3 days #12 tabs 10/25/21 11/04/21 10/31/21 Rx finished propranolol 10 mg tablet 10 mg PO TID #90 tabs 10/27/21 11/04/21 11/04/21 Rx oxycodone 10 mg tablet 10 - 20 mg PO Q4H PRN pain 7 days 11/03/21 11/04/21 11/04/21 03:00 Rx #40 tabs albuterol sulfate 90 mcg/actuation 2 puff inhalation Q6H PRN 11/04/21 11/04/21 Unknown History aerosol inhaler (Ventolin HFA) Shortness Of Breath atorvastatin 80 mg tablet 80 mg PO BEDTIME 11/04/21 11/04/21 Unknown History budesonide-formoterol HFA 80 2 puff inhalation BID 11/04/21 11/04/21 Unknown History mcg-4.5 mcg/actuation aerosol inhaler (Symbicort) cetirizine 10 mg tablet (Zyrtec) 10 mg PO DAILY PRN Allergy Symptoms 11/04/21 11/04/21 Unknown History cholecalciferol (vitamin D3) 50 50 mcg PO QAM 11/04/21 11/04/21 11/04/21 History mcg (2,000 unit) capsule dapagliflozin 10 mg tablet 10 mg PO QAM 11/04/21 11/04/21 11/04/21 History (Farxiga) desvenlafaxine succinate 50 mg 50 mg PO QAM 11/04/21 11/04/21 11/04/21 History tablet,extended release 24 hr (Pristiq) folic acid 1 mg tablet 1 mg PO QAM 11/04/21 11/04/21 11/04/21 History furosemide 40 mg tablet 40 mg PO QAM 11/04/21 11/04/21 11/04/21 History lisinopril 10 mg tablet 10 mg PO QAM 11/04/21 11/04/21 11/04/21 History magnesium oxide 400 mg (241.3 mg 400 mg PO DAILY 11/04/21 11/04/21 Unknown History magnesium) tablet meclizine 25 mg tablet 25 mg PO QID PRN Dizziness 11/04/21 11/04/21 Unknown History nitroglycerin 0.4 mg sublingual 0.4 mg sublingual Q5M PRN Chest 11/04/21 11/04/21 Unknown History tablet (Nitrostat) Pain olanzapine 20 mg tablet (Zyprexa) 20 mg PO BEDTIME 11/04/21 11/04/21 Unknown History potassium chloride 10 mEq 10 meq PO QAM 11/04/21 11/04/21 11/04/21 History tablet,extended release sitagliptin 100 mg-metformin ER 1 tab PO QAM 11/04/21 11/04/21 11/04/21 History 1,000 mg tablet,extended [id number] mp (Janumet XR) tamsulosin 0.4 mg capsule (Flomax) 0.4 mg PO DAILY 11/04/21 11/04/21 Unknown History Allergies Allergy/AdvReac Type Severity Reaction Status Date / Time quetiapine [From Seroquel] Allergy SEIZURES Verified 10/13/21 12:06 PFSH Acute PFSH: Medical History Chronic back pain COPD (chronic obstructive pulmonary disease) Diabetes mellitus Diabetic neuropathy Elevated LFTs Encounter for screening laboratory testing for COVID-19 virus Folate deficiency Generalized anxiety disorder GERD (gastroesophageal reflux disease) Hyperlipidemia Hypertension Nonunion of spinal fusion Peripheral edema Psychiatric care Residual schizophrenia Viral gastroenteritis Vitamin D deficiency Surgical History History of vasectomy Family History Other Diabetes Hypertension Denies family history of Cancer Social History Smoking and tobacco status: never smoked Quit status (tobacco): has tried quititng Smoking risk assessment/counseling performed?: Yes Tobacco counseling given: counseling >3 minutes and other Alcohol intake: never Desire information about alcohol rehabilitation?: No Counseling given: No Desire information about substance/drug rehabilitation?: No Counseling given: No Adopted: No Caregiver/support person: No Lives independently: Yes Household members: family Housing: House Marital status: Single Number of children: 2 service: No Current occupational status: disabled History of recent travel: No Current gender identity: Male Vitals/I&O/Wt Last Vital Signs Temp 97.4 F L 11/04/21 09:46 Pulse 104 H 11/04/21 09:46 Resp 16 11/04/21 09:46 BP 125/80 11/04/21 09:46 Pulse Ox 97 11/04/21 09:46 O2 Del Method 11/04/21 09:46 Weight last 48 hrs Weight 200 lb Physical Exam Narrative: HEENT: Normocephalic Eye: Sclera /conjunctiva normal Abdomen: Soft to palpation mildly tender Neurological: Oriented to place person and time Skin: Intact, no lesions appreciated on gross exam Data : 11/04/21 06:28 11/04/21 06:28 A&P Assessment and plan (1) Nausea & vomitin-year-old male 40-year-old male who presented to the ER today with abdominal pain, nausea and vomiting. There was concern for possible hematemesis. His hemoglobin is stable, CT abdomen pelvis did not show any acute pathology. Plan for EGD under MAC today Procedure, risks, benefits and alternatives have been discussed with the patient who wishes to proceed with surgery. Status: Acute Attestations Medical Necessity Statement*: Nausea and vomiting Coding Level of Care Code Acute Ship'S Engineer for [facility] Fwd Diagnoses Nausea & vomiting R11.2
[2021-11-04 11:02] VITALS: BP 105/79; PULSE 109; RESP 18; TEMP 36.7; O2SAT 92
[2021-11-04 11:17] VITALS: BP 119/67; PULSE 106; RESP 18; O2SAT 93
--- NOTE | 2021-11-04 12:41 | ANE.PACU2 ---
Inpatient post-anesthesia follow up: Airway intact: Yes Vital signs: Temperature 98.0 F Pulse Rate 106 Respiratory Rate 18 Blood Pressure 119/67 Pulse Oximetry 93 Oxygen Delivery Me thod Room Air Oxygen Flow Rate Fraction of Inspir ed Oxygen Hydration adequate: Yes Nausea and vomiting: No Pain level: 1 Mental status: Baseline
== END 2021-11-04 11:25 | disposition home or self-care (01) ==
LOC: ER 09:23 → GILAB 09:28
PROVIDERS: Emergency Provider Family Medicine; PCP Nurse Practitioner Family; Visit Provider Surgery
PROC: 0DJ08ZZ Inspection of Upper Intestinal Tract, Via Natural or Artificial Opening Endoscopic (ICD-10-PCS; CPT 43235; principal; 2021-11-04 09:30)
DX: R10.9 Unspecified abdominal pain (principal); R11.2 Nausea with vomiting, unspecified; J44.9 Chronic obstructive pulmonary disease, unspecified; E11.40 Type 2 diabetes mellitus with diabetic neuropathy, unspecified; F41.1 Generalized anxiety disorder; K21.9 Gastro-esophageal reflux disease without esophagitis; E78.5 Hyperlipidemia, unspecified; I10 Essential (primary) hypertension; Z98.1 Arthrodesis status; K25.9 Gastric ulcer, unspecified as acute or chronic, without hemorrhage or perforation
CPT/HCPCS: 43239; 74177; 80053; 81003; 83690; 85025; 88305; 88342; 93005; C9113; J2405; J2704; J7030; Q9967

== ENCOUNTER 2021-11-17 20:09 | Emergency (ER) | payer MEDICARE, MEDICAID, SELFPAY ==
[2021-11-17 20:15] VITALS: BP 134/80; PULSE 107; RESP 20; TEMP 36.3; O2SAT 93; BMI 27.1
--- NOTE | 2021-11-17 20:16 | ECG_ITS ---
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 Measurements Intervals [place] Rate: 103 P: 68 VT: 184 QRS: 53 QRSD: 98 T: 44 QT: 339 QTc: 445 Interpretive Statements SINUS TACHYCARDIA ABNORMAL RHYTHM ECG Compared to ECG 11/04/2021 09:22:57 No significant changes Electronically Signed On 11-17-2021 22:51:42 CDT by Ankur Martinez M.D. [email or web address] [email or web address]/store/NU/[id number] f
--- NOTE | 2021-11-17 20:16 | XRR_ITS ---
PROCEDURE INFORMATION: Exam: XR Chest Exam date and time: 11/17/2021 8:29 PM Age: 40 years old Clinical indication: Angina; Additional info: Cp TECHNIQUE: Imaging protocol: Radiologic exam of the chest. Views: 1 view. COMPARISON: CT abdomen pelvis w con* [id number] 11/04/2021 6:41 AM FINDINGS: Lungs: Left lower lobe atelectasis. Pleural spaces: Unremarkable. No pleural effusion. No pneumothorax. Heart/Mediastinum: Unremarkable. No cardiomegaly. Bones/joints: Unremarkable. XR/XR chest 1V portable [id number] IMPRESSION: Left lower lobe atelectasis.
--- NOTE | 2021-11-17 20:23 | W.ED.CHESTPA ---
HPI - Chest Pain General: Chief Complaint: Chest Pain Stated Complaint: CP Time Seen by Provider: 11/17/21 20:12 Source: patient and EMS Mode of arrival: EMS Limitations: no limitations History of Present Illness: 40-year-old male is here by EMS chest pain he states that he got shot start having some dull pain left side of his chest an hour ago. States pain currently is a 1 out of 10 denies any shortness of breath denies any nausea or diaphoresis he denies any worsening improving factors. Associated symptoms: Deny abdominal pain, dyspnea, fever(s), nausea or vomiting Review of Systems Const: Denies: fever(s), chills, body aches or change in appetite Eyes: Denies: blurry vision or eye discomfort ENMT: Denies: throat pain or dental pain Card: Reports: chest pain Resp: Denies: dyspnea GI: Denies: abdominal pain, nausea, vomiting or diarrhea : Denies: dysuria Musc: Denies: neck pain or back pain Skin/Breast: Denies: rash Neuro: Denies: headache(s) Psych: Denies: depression Ney/Lymph: Denies: easy bruising All/Imm: Denies: urticaria PFSH ED PFSH: Medical History Chronic back pain COPD (chronic obstructive pulmonary disease) Diabetes mellitus Diabetic neuropathy Elevated LFTs Encounter for screening laboratory testing for COVID-19 virus Folate deficiency Generalized anxiety disorder GERD (gastroesophageal reflux disease) Hyperlipidemia Hypertension Nonunion of spinal fusion Peripheral edema Psychiatric care Residual schizophrenia Viral gastroenteritis Vitamin D deficiency Surgical History History of vasectomy Family History Other Diabetes Hypertension Denies family history of Cancer Social History Smoking and tobacco status: current every day smoker cigarettes Years cigarettes smoked: 22 Quit status (tobacco): has tried quititng Smoking risk assessment/counseling performed?: Yes Tobacco counseling given: counseling >3 minutes and other Alcohol intake: never Desire information about alcohol rehabilitation?: No Counseling given: No Desire information about substance/drug rehabilitation?: No Counseling given: No Adopted: No Caregiver/support person: No Lives independently: Yes Household members: family Housing: House Marital status: Single Number of children: 2 service: No Current occupational status: disabled History of recent travel: No Current gender identity: Male Physical Exam Const: COMMON NORMALS: no acute distress, patient oriented x3 and healthy appearing HENMT: COMMON NORMALS: normocephalic and atraumatic HEAD & SCALP: normocephalic and atraumatic Eye: COMMON NORMALS: Equal, round and reactive pupils present and EOMs intact bilaterally PUPIL: Yes Equal, round and reactive pupils present Neck/C-Spine: COMMON NORMALS: full ROM and supple Chest: COMMONS NORMALS: normal inspection of the chest and normal palpation of entire chest wall Resp: COMMON NORMALS: normal respiratory effort, No retractions, No use of accessory muscles and clear to auscultation bilaterally AUSCULTATION: clear to auscultation bilaterally Cardio: COMMON NORMALS: regular rate, regular rhythm and No murmurs present (Cardio) RATE: regular rate RHYTHM: regular rhythm GI: COMMON NORMALS: Normal to inspection, nondistended, normoactive bowel sounds present, Soft to palpation, non-tender and no masses PALPATION: Yes Soft to palpation Extremity: COMMON NORMALS: normal to inspection and full ROM Neuro: COMMON NORMALS: patient oriented x3, moves all extremities and no focal motor deficits Psych: COMMON NORMALS: mental status grossly normal, Normal thought process present and cooperative THOUGHT PROCESS: Normal thought process present Skin: COMMON NORMALS: no rashes or lesions noted and no wounds GENERAL SKIN EXAM: no rashes or lesions noted Course Vital Signs: Vital signs: Vital Signs Temperature 97.4 F L 11/17/21 20:15 Pulse Rate 100 11/17/21 22:33 Respiratory Rate 18 11/17/21 22:33 Blood Pressure 143/100 11/17/21 22:33 Pulse Oximetry 94 11/17/21 22:33 Oxygen Delivery Me thod 11/17/21 22:33 MDM - Chest Pain Medical Decision Making Patient presents here with chest pains atypical in nature initial repeat troponins are negative he is well-appearing here EKG x-ray are normal he is stable for discharge is to follow-up PCP and return if worsening. Lab Data : 11/17/21 20:20 11/17/21 20:20 Radiology Impressions Chest X-Ray 11/17/21 20:16 IMPRESSION: Left lower lobe atelectasis. Laboratory Results WBC 14.5 10^3/uL (4.0-10.0) H 11/17/21 20:20 RBC 5.17 10^6/uL (4.1-5.3) 11/17/21 20:20 Hgb 13.3 g/dL (11.7-16.6) 11/17/21 20:20 Hct 41.4 % (42.0-52.0) L 11/17/21 20:20 MCV 80.1 fl (80-94) 11/17/21 20:20 MCH 25.7 pg (28.0-34.0) L 11/17/21 20:20 MCHC 32.1 g/dL (30.0-36.0) 11/17/21 20:20 RDW 14.6 % (12.1-15.1) 11/17/21 20:20 Plt Count 323 10^3/cmm (130-400) 11/17/21 20:20 MPV 9.1 fL (7.4-10.4) 11/17/21 20:20 Neut % (Auto) 67.4 % 11/17/21 20:20 Lymph % (Auto) 24.4 % 11/17/21 20:20 Brantley % (Auto) 6.4 % 11/17/21 20:20 Eos % (Auto) 0.6 % 11/17/21 20:20 Baso % (Auto) 0.6 % 11/17/21 20:20 Neut # (Auto) 9.75 10^3/uL (1.8-7.7) H 11/17/21 20:20 Lymph # (Auto) 3.5 10^3/uL (0.8-4.8) 11/17/21 20:20 Brantley # (Auto) 0.9 10^3/uL (0.2-0.9) 11/17/21 20:20 Eos # (Auto) 0.1 10^3/uL (0.0-0.8) 11/17/21 20:20 Baso # (Auto) 0.1 10^3/uL (0.0-0.1) 11/17/21 20:20 Nucleated RBC % (auto) 0 % 11/17/21 20:20 Nucleated RBCs # 0.0 /100WBC 11/17/21 20:20 Sodium 136 mmol/L (136-145) 11/17/21 20:20 Potassium 3.5 mmol/L (3.5-5.1) 11/17/21 20:20 Chloride 97 mmol/L (98-107) L 11/17/21 20:20 Carbon Dioxide 24 mmol/L (22-29) 11/17/21 20:20 Anion Gap 18.5 (5-19) 11/17/21 20:20 BUN 6 mg/dL (6-20) 11/17/21 20:20 Creatinine 0.9 mg/dL (0.7-1.2) 11/17/21 20:20 GFR Calculation 94.4 mL/min (90-130) 11/17/21 20:20 Glucose 99 mg/dL (65-115) 11/17/21 20:20 Calculated Osmolality 280 mOsm/kg (285-295) L 11/17/21 20:20 Calcium 8.9 mg/dL (8.5-10.5) 11/17/21 20:20 Total Bilirubin 0.2 mg/dL (0.15-1.2) 11/17/21 20:20 AST 31 U/L (0-40) 11/17/21 20:20 ALT 30 U/L (0-41) 11/17/21 20:20 Alkaline Phosphatase 165 U/L (40-130) H 11/17/21 20:20 Troponin T Baseline 24 ng/L (0-15) H 11/17/21 20:20 Troponin T 120 Minute 20.21 ng/L (0-15) H 11/17/21 22:00 Delta Troponin T -3.79 ABS# (0-10) L 11/17/21 22:00 Total Protein 5.9 g/dL (6.6-8.7) L 11/17/21 20:20 Albumin 4.1 g/dL (3.5-5.2) 11/17/21 20:20 Globulin 1.8 g/dL (1.3-4.6) 11/17/21 20:20 EKG Data EKG 1: I personally reviewed and interpreted this EKG as follows: EKG interpretation date: 11/17/21 EKG interpretation time: 20:16 Interpretation: sinus tach hr [address] or t wave abnormalities qrs 98 qtc 399 Discharge Plan Discharge Patient Disposition: Home Clinical Impression: Chest pain Condition: Stable Prescriptions: No Action (DME) Diabetic Shoes See Rx Instructions .Route .MEDSUPPLY Qty: 1 0RF Rx Instructions: As directed albuterol sulfate 2.5 mg /3 mL (0.083 %) solution for nebulization 2.5 mg INHALATION QID PRN (Reason: shortness of breath or wheezing) Qty: 75 2RF (DME) custom sole support See Rx Instructions .Route .MEDSUPPLY Qty: 1 0RF Rx Instructions: As directed by courtney ([facility] [place]) diabetic shoes no inserts See Rx Instructions .Route .MEDSUPPLY Qty: 1 0RF Rx Instructions: As directed ([facility] [place]) Custom Orthotics - Alpha and Babb (1 pair) See Rx Instructions .Route .MEDSUPPLY Qty: 1 0RF Rx Instructions: As directed tizanidine [Zanaflex] 4 mg tablet 4 mg PO Q8H PRN (Reason: muscle spasticity) Qty: 90 0RF omeprazole 20 mg capsule,delayed release(DR/EC) 20 mg PO DAILY 90 Days Qty: 90 3RF Hold Instructions: Resume on 11/18/21. promethazine 25 mg tablet 25 mg PO Q6H PRN (Reason: nausea and vomiting) Qty: 60 0RF gabapentin 800 mg tablet 800 mg PO TID 30 Days Qty: 90 3RF propranolol 10 mg tablet 10 mg PO TID Qty: 90 2RF amoxicillin 500 mg capsule 1,000 mg PO BID 14 Days Qty: 56 0RF clarithromycin 500 mg tablet 500 mg PO BID 14 Days Qty: 28 0RF pantoprazole [Protonix] 40 mg tablet,delayed release (DR/EC) 40 mg PO BID 14 Days Qty: 28 0RF oxycodone 10 mg tablet 10 - 20 mg PO Q4H PRN (Reason: pain) 7 Days Qty: 40 0RF Flomax 0.4 mg Capsule 0.4 mg PO DAILY Nitrostat 0.4 mg Tablet, Sublingual 0.4 mg SUBLINGUAL Q5M PRN (Reason: Chest Pain) Rx Instructions: do not exceed 3 doses per episode furosemide 40 mg tablet 40 mg PO QAM atorvastatin 80 mg tablet 80 mg PO BEDTIME Zyrtec 10 mg tablet 10 mg PO DAILY PRN (Reason: Allergy Symptoms) potassium chloride 10 mEq tablet extended release 10 meq PO QAM magnesium oxide 400 mg (241.3 mg magnesium) tablet 400 mg PO DAILY meclizine 25 mg tablet 25 mg PO QID PRN (Reason: Dizziness) lisinopril 10 mg tablet 10 mg PO QAM folic acid 1 mg tablet 1 mg PO QAM Ventolin HFA 90 mcg/actuation HFA aerosol inhaler 2 puff inhalation Q6H PRN (Reason: Shortness Of Breath) Zyprexa 20 mg tablet 20 mg PO BEDTIME budesonide-formoterol [Symbicort] 80-4.5 mcg/actuation HFA aerosol inhaler 2 puff inhalation BID Pristiq 50 mg tablet extended release 24 hr 50 mg PO QAM cholecalciferol (vitamin D3) 50 mcg (2,000 unit) capsule 50 mcg PO QAM Janumet XR 100-1,000 mg tablet, ER multiphase 24 hr 1 tab PO QAM Farxiga 10 mg tablet 10 mg PO QAM Protonix 40 mg tablet,delayed release (DR/EC) 40 mg PO BID Qty: 28 0RF topiramate [Topamax] 50 mg tablet 50 mg PO BID Discharge Orders: Discharge ED (Routine); Ordered 11/17/21 Ordered By: Fariha Almendarez Referrals: Chelita Mari NP [Primary Care Provider] - Discharge Diet: Advance as tolerated Discharge Activity: Resume usual activity Patient Instructions: Chest Pain (ED) Coding Level of Care Code ED Program Associate for Chg Fwd Exam Comprehensive
[2021-11-17 20:26] LABS: Basophils # 0.1 10^3/uL (0.0-0.1); Basophils % 0.6 %; Eosinophils # 0.1 10^3/uL (0.0-0.8); Eosinophils % 0.6 %; Hematocrit 41.4 % (42.0-52.0); Hemoglobin 13.3 g/dL (11.7-16.6); Lymphocytes # 3.5 10^3/uL (0.8-4.8); Lymphocytes % 24.4 %; Mean Corpuscular HGB Conc 32.1 g/dL (30.0-36.0); Mean Corpuscular Hemoglobin 25.7 pg (28.0-34.0); Mean Corpuscular Volume 80.1 fl (80-94); Mean Platelet Volume 9.1 fL (7.4-10.4); Monocytes # 0.9 10^3/uL (0.2-0.9); Monocytes % 6.4 %; Neutrophils # 9.75 10^3/uL (1.8-7.7); Neutrophils % 67.4 %; Nucleated Red Blood Cells % 0 %; Platelet Count 323 10^3/cmm (130-400); Red Blood Count 5.17 10^6/uL (4.1-5.3); Red Cell Distribution Width 14.6 % (12.1-15.1); White Blood Count 14.5 10^3/uL (4.0-10.0)
[2021-11-17 20:45] LABS: Alanine Aminotransferase 30 U/L (0-41); Albumin Level 4.1 g/dL (3.5-5.2); Alkaline Phosphatase 165 U/L (40-130); Anion Gap 18.5 (5-19); Aspartate Amino Transferase 31 U/L (0-40); Blood Urea Nitrogen 6 mg/dL (6-20); Calcium 8.9 mg/dL (8.5-10.5); Carbon Dioxide 24 mmol/L (22-29); Chloride 97 mmol/L (98-107); Globulin 1.8 g/dL (1.3-4.6); Glomerular Filtration Rate 94.4 mL/min (90-130); Glucose 99 mg/dL (65-115); Osmolality Calculated 280 mOsm/kg (285-295); Potassium 3.5 mmol/L (3.5-5.1); Sodium 136 mmol/L (136-145); Total Bilirubin 0.2 mg/dL (0.15-1.2); Total Protein 5.9 g/dL (6.6-8.7)
[2021-11-17 20:48] LABS: Troponin(5th) Baseline 24 ng/L (0-15)
[2021-11-17 21:46] VITALS: RESP 18; O2SAT 97
[2021-11-17] MEDS: morphine 4 mg/mL SDV 1 mL IVP (21:46)
--- NOTE | 2021-11-17 22:16 | ECG_ITS ---
[facility] Test Date: 2021-11-17 Pat Name: Aries Shock Department: Room: Gender: Male Actuarial Intern: : 1980 Requested By: Fariha Almendarez Order Number: [id number] Ministerio MD: Edu Russo M.D. Measurements Intervals [place] Rate: 97 P: 60 OR: 179 QRS: 44 QRSD: 98 T: 31 QT: 341 QTc: 433 Interpretive Statements SINUS RHYTHM Compared to ECG 11/17/2021 20:16:41 Sinus tachycardia no longer present Electronically Signed On 11-18-2021 17:52:18 CDT by Edu Russo M.D. [id number]
[2021-11-17 22:33] VITALS: BP 143/100; PULSE 100; RESP 18; O2SAT 94
[2021-11-17 22:33] LABS: Troponin 5 2HR 20.21 ng/L (0-15)
[2021-11-17 22:41] LABS: Troponin 5 2HR Delta -3.79 ABS# (0-10)
[2021-11-17 23:24] VITALS: BP 152/101; PULSE 101; RESP 18; O2SAT 94
== END 2021-11-17 23:25 | disposition home or self-care (01) ==
PROVIDERS: Emergency Provider Emergency Medicine; PCP Nurse Practitioner Family
DX: R07.9 Chest pain, unspecified (principal); J44.9 Chronic obstructive pulmonary disease, unspecified; E11.9 Type 2 diabetes mellitus without complications; E78.5 Hyperlipidemia, unspecified; I10 Essential (primary) hypertension; F17.210 Nicotine dependence, cigarettes, uncomplicated
CPT/HCPCS: 71045; 80053; 84484; 85025; 93005; 96374; 99285; J2270

== ENCOUNTER → 2021-11-23 13:36 | Outpatient (BNVA) | payer MEDICARE, MEDICAID, SELFPAY | PROVIDERS: PCP Nurse Practitioner Family; Visit Provider Orthopaedic Surgery | DX: M54.50 Low back pain, unspecified (principal); W18.2XXA Fall in (into) shower or empty bathtub, initial encounter; Z98.1 Arthrodesis status; R49.0 Dysphonia; B37.89 Other sites of candidiasis; K21.9 Gastro-esophageal reflux disease without esophagitis; H61.23 Impacted cerumen, bilateral; F17.210 Nicotine dependence, cigarettes, uncomplicated | CPT/HCPCS: 72100; 99213; 99214 ==

== ENCOUNTER → 2021-12-01 08:50 | Outpatient (BNVA) | payer MEDICARE, MEDICAID, SELFPAY | PROVIDERS: PCP Nurse Practitioner Family; Visit Provider Nurse Practitioner | DX: M25.551 Pain in right hip (principal); M54.16 Radiculopathy, lumbar region | CPT/HCPCS: 73502 ==

== ENCOUNTER → 2021-12-19 07:10 | Day surgery (SDC) | payer MEDICARE, MEDICAID, SELFPAY ==
[2021-12-13 08:33] VITALS: BMI 28.0
--- NOTE | 2021-12-13 16:31 | ANES.PREANE2 ---
Pre-Anesthetic Assessment Height/Weight: Height 1.75 m Weight 86.183 kg Preop Diagnosis: Spondylolisthesis Operation Date: 12/19/21 07:00 Proposed Procedures p PLIF L3 SCREW REPLACEMENT NEW SCREW L2 CONNECT RODS TO PREVIOUS CONSTRUCTION [id number]/[id number](Not Applicable) - Nirmal Hannon DO Familial anesthetic complications: None Was Beta Bryanna taken within 24 hours: N/A Was Clonidine taken within 24 hours: N/A Social Tobacco and No alcohol Exam alert, oriented x 3 and regular rate & rhythm Wheezing b/l Airway Submandibular: within normal limits Cervical ROM: within normal limits Mallampati: Class I Dentition: false Pulmonary TMJ Chronic pharyngeal candidiasis CV/HEM Hypertension None reported Hepatic Gauchers disease GI Gastroesophageal Reflux Disease Metabolic Diabetes Mellitus and Hyperlipidemia Musc/skel Osteoarthritis/DJD Hx of spinal fusion Neuropsych Anxiety and Neuropathy Hx of schizophrenia Anesthetic Plan ASA status: 3 Anesthesia: Anesthesia Evaluation and General Other: We discussed risk and benefits of general anesthesia including PONV, sore throat (sometimes severe), corneal abrasion, positioning and peripheral nerve injuries, life threatening allergic reaction, post operative ICU admission requiring prolonged intubation, aspiration, stroke, heart attack, , and rare incidences of recall. Patient consents to proceed with general anesthesia. Discussed GETA, possible arterial line Risk of > 500 ml blood loss (7ml/kg in children): No Medications/Allergies Home Medications Medication Instructions Recorded Confirmed Last Taken Type custom sole support #1 ea 07/14/20 12/08/21 Unknown Rx diabetic shoes no inserts #1 ea 07/14/20 12/08/21 Unknown Rx Diabetic Shoes #1 ea 08/13/20 12/08/21 Unknown Rx albuterol sulfate 2.5 mg (3 mL) inhalation QID PRN 11/12/20 12/13/21 05/31/21 Rx shortness of breath or wheezing #75 mL Custom Orthotics - Alpha and [place] #1 ea 09/14/21 12/08/21 Unknown Rx (1 pair) omeprazole 20 mg capsule,delayed 20 mg PO DAILY 90 days #90 caps 09/28/21 12/13/21 Unknown Rx release topiramate 50 mg tablet (Topamax) 50 mg PO BID 10/07/21 12/13/21 Unknown History gabapentin 800 mg tablet 800 mg PO TID 30 days #90 tabs 10/24/21 12/13/2122 Rx propranolol 10 mg tablet 10 mg PO TID #90 tabs 10/27/21 12/13/21 11/04/21 Rx albuterol sulfate 90 mcg/actuation 2 puff inhalation Q6H PRN 11/04/21 12/13/21 Unknown History aerosol inhaler (Ventolin HFA) Shortness Of Breath atorvastatin 80 mg tablet 80 mg PO BEDTIME 11/04/21 12/13/21 Unknown History budesonide-formoterol HFA 80 2 puff inhalation BID 11/04/21 12/13/21 Unknown History mcg-4.5 mcg/actuation aerosol inhaler (Symbicort) cetirizine 10 mg tablet (Zyrtec) 10 mg PO DAILY PRN Allergy Symptoms 11/04/21 12/13/21 Unknown History cholecalciferol (vitamin D3) 50 50 mcg PO QAM 11/04/21 12/13/21 11/04/21 History mcg (2,000 unit) capsule dapagliflozin 10 mg tablet 10 mg PO QAM 11/04/21 12/13/21 11/04/21 History (Farxiga) desvenlafaxine succinate 50 mg 50 mg PO QAM 11/04/21 12/13/21 11/04/21 History tablet,extended release 24 hr (Pristiq) folic acid 1 mg tablet 1 mg PO QAM 11/04/21 12/13/21 11/04/21 History furosemide 40 mg tablet 40 mg PO QAM 11/04/21 12/13/21 11/04/21 History lisinopril 10 mg tablet 10 mg PO QAM 11/04/21 12/13/21 11/04/21 History magnesium oxide 400 mg (241.3 mg 400 mg PO DAILY 11/04/21 12/13/21 Unknown History magnesium) tablet meclizine 25 mg tablet 25 mg PO QID PRN Dizziness 11/04/21 12/13/21 Unknown History nitroglycerin 0.4 mg sublingual 0.4 mg sublingual Q5M PRN Chest 11/04/21 12/13/21 Unknown History tablet (Nitrostat) Pain olanzapine 20 mg tablet (Zyprexa) 20 mg PO BEDTIME 11/04/21 12/13/21 Unknown History potassium chloride 10 mEq 10 meq PO QAM 11/04/21 12/13/21 11/04/21 History tablet,extended release sitagliptin 100 mg-metformin ER 1 tab PO QAM 11/04/21 12/13/21 11/04/21 History 1,000 mg tablet,extended [id number] mp (Janumet XR) promethazine 25 mg tablet 25 mg PO Q6H PRN nausea and 11/07/21 12/13/21 Unknown Rx vomiting #60 tabs pantoprazole 40 mg tablet,delayed 40 mg PO BID 14 days #28 tabs 11/10/21 12/13/21 Unknown Rx release (Protonix) tizanidine 4 mg tablet (Zanaflex) 4 mg PO Q8H PRN muscle spasticity 12/01/21 12/13/21 Unknown Rx #90 tabs oxycodone 5 mg tablet 5 mg PO Q6H PRN pain 7 days #30 12/12/21 12/13/21 Unknown Rx tabs Allergies Allergy/AdvReac Type Severity Reaction Status Date / Time quetiapine [From Seroquel] Allergy SEIZURES Verified 12/08/21 08:04 [facility] Anesthesia Medical History Chronic back pain COPD (chronic obstructive pulmonary disease) Diabetes mellitus Diabetic neuropathy Elevated LFTs Encounter for screening laboratory testing for COVID-19 virus Folate deficiency Gauchers disease Generalized anxiety disorder GERD (gastroesophageal reflux disease) Hyperlipidemia Hypertension Nonunion of spinal fusion Peripheral edema Psychiatric care Residual schizophrenia Viral gastroenteritis Vitamin D deficiency Surgical History History of vasectomy Family History Other Diabetes Hypertension Denies family history of Cancer Social History Smoking and tobacco status: current every day smoker cigarettes Years cigarettes smoked: 22 Quit status (tobacco): has tried quititng Smoking risk assessment/counseling performed?: Yes Tobacco counseling given: counseling >3 minutes and other Alcohol intake: never Desire information about alcohol rehabilitation?: No Counseling given: No Desire information about substance/drug rehabilitation?: No Counseling given: No Adopted: No Caregiver/support person: No Lives independently: Yes Household members: family Housing: House Marital status: Single Number of children: 2 service: No Current occupational status: disabled History of recent travel: No Current gender identity: Male Data Anesthesia Cardiac Studies: No Data to Display
--- NOTE | 2021-12-16 17:59 | SUR.PREOP ---
1754-Upon confirming case for Sunday patient notified Rn he has active parasites. Stated he has pin worms as noticed in his stool. Dr Hannon was notified and case will be rescheduled for later date. Matthew was notified to remove from Sunday schedule.
== END ==
PROVIDERS: PCP Nurse Practitioner Family; Visit Provider Orthopaedic Surgery
DX: M43.10 Spondylolisthesis, site unspecified (principal); Z53.8 Procedure and treatment not carried out for other reasons
CPT/HCPCS: J0330; J1100; J1170; J2250; J2405; J2704; J2710; J3010; J3490

== ENCOUNTER → 2021-12-20 08:37 | Outpatient (BNVA) | payer MEDICARE, MEDICAID, OTHER, SELFPAY | PROVIDERS: PCP Nurse Practitioner Family; Visit Provider Orthopaedic Surgery | DX: B83.9 Helminthiasis, unspecified (principal); R11.0 Nausea | CPT/HCPCS: 87506 ==

== ENCOUNTER 2022-01-02 09:26 | Outpatient (CLI) | payer MEDICARE, MEDICAID, SELFPAY ==
[2022-01-02 10:44] LABS: Basophils # 0.1 10^3/uL (0.0-0.1); Basophils % 0.4 %; Eosinophils % 0.3 %; Hematocrit 42.8 % (42.0-52.0); Hemoglobin 14.2 g/dL (11.7-16.6); Lymphocytes # 1.6 10^3/uL (0.8-4.8); Lymphocytes % 14.7 %; Mean Corpuscular HGB Conc 33.2 g/dL (30.0-36.0); Mean Corpuscular Hemoglobin 26.3 pg (28.0-34.0); Mean Corpuscular Volume 79.3 fl (80-94); Mean Platelet Volume 9.4 fL (7.4-10.4); Monocytes # 0.5 10^3/uL (0.2-0.9); Monocytes % 4.9 %; Neutrophils % 79.2 %; Nucleated Red Blood Cells % 0 %; Platelet Count 324 10^3/cmm (130-400); Red Cell Distribution Width 14.7 % (12.1-15.1); White Blood Count 11.1 10^3/uL (4.0-10.0)
[2022-01-02 11:03] LABS: Anion Gap 16.9 (5-19); Blood Urea Nitrogen 9 mg/dL (6-20); Calcium 9.2 mg/dL (8.5-10.5); Carbon Dioxide 23 mmol/L (22-29); Chloride 95 mmol/L (98-107); Glomerular Filtration Rate 67.4 mL/min (90-130); Glucose 105 mg/dL (65-115); Osmolality Calculated 271 mOsm/kg (285-295); Potassium 3.9 mmol/L (3.5-5.1); Sodium 131 mmol/L (136-145)
== END 2022-01-02 09:27 | disposition home or self-care (01) ==
LOC: LAB 09:29
PROVIDERS: PCP Nurse Practitioner Family; Visit Provider Orthopaedic Surgery
DX: Z01.818 Encounter for other preprocedural examination (principal); B83.9 Helminthiasis, unspecified; M47.816 Spondylosis without myelopathy or radiculopathy, lumbar region
CPT/HCPCS: 36415; 80048; 85025

== ENCOUNTER 2022-01-04 08:10 | Inpatient (IN) | payer MEDICARE, MEDICAID, SELFPAY ==
[2021-12-28 09:19] VITALS: BMI 28.0
[2021-12-28 09:47] LABS: Basophils # 0.1 10^3/uL (0.0-0.1); Basophils % 0.8 %; Eosinophils # 0.1 10^3/uL (0.0-0.8); Eosinophils % 0.7 %; Hematocrit 46.8 % (42.0-52.0); Hemoglobin 15.4 g/dL (11.7-16.6); Lymphocytes # 3.4 10^3/uL (0.8-4.8); Lymphocytes % 28.4 %; Mean Corpuscular HGB Conc 32.9 g/dL (30.0-36.0); Mean Corpuscular Hemoglobin 26.2 pg (28.0-34.0); Mean Corpuscular Volume 79.6 fl (80-94); Mean Platelet Volume 9.4 fL (7.4-10.4); Monocytes # 0.7 10^3/uL (0.2-0.9); Monocytes % 5.4 %; Neutrophils # 7.78 10^3/uL (1.8-7.7); Neutrophils % 64.2 %; Nucleated Red Blood Cells % 0 %; Platelet Count 339 10^3/cmm (130-400); Red Blood Count 5.88 10^6/uL (4.1-5.3); White Blood Count 12.1 10^3/uL (4.0-10.0)
[2021-12-28 10:12] LABS: Blood Urea Nitrogen 9 mg/dL (6-20); Calcium 9.8 mg/dL (8.5-10.5); Carbon Dioxide 26 mmol/L (22-29); Chloride 96 mmol/L (98-107); Creatinine Clr Calc Pharmacy 134.8301; Glomerular Filtration Rate 107.6 mL/min (90-130); Glucose 118 mg/dL (65-115); Osmolality Calculated 278 mOsm/kg (285-295); Sodium 134 mmol/L (136-145)
[2021-12-28 10:17] LABS: Anion Gap 16.4 (5-19); Potassium 4.4 mmol/L (3.5-5.1)
[2022-01-04] VITALS (32 sets, daily range): BP systolic 109–159; BP diastolic 70–101; PULSE 81–112; RESP 16–20; TEMP 36.1–36.9; O2SAT 92–100; BMI 29.6
--- NOTE | 2022-01-04 | XR_ITS ---
WS: [id number] XR lumbar spine 2-3V* [id number] REASON FOR EXAM: hardware removal and extension to L2-L3 FINDINGS: Posterior decompression with posterior pedicle screws and rods with fixation of the lumbar spine from L2 to S2. Interbody fusion devices at L4-L5 and L5-S1. This represents extension of the posterior de compression and pedicle screw and rocio fixation to the L2-L3 level. Surgical appliances are in proper position and alignment. XR/XR lumbar spine 2-3V* [id number] IMPRESSION: Postoperative lumbar spine as above.
--- NOTE | 2022-01-04 | SCC_ITS ---
Procedure done: 1. L2 to L3 posterior lateral fusion 2. Instrumentation from L2-L3 3. Use of allograft 4. Removal of deep hardware from spine 1 second of fluoroscopic guidance, for a cumulative dose of 8.6 mGy, was provided to Dr. Hannon by the radiology department. C-arm images of the lumbar spine were saved for the patient's permanent record. [facility]
--- NOTE | 2022-01-04 07:49 | P.ANESUD_ITS ---
Pre-Anesthetic Update Pre-Anesthetic Assessment: Date of Surgery/Procedure: 01/04/22 Preop Cookie gnosis: n/v Proposed Procedure: Operation Date: 01/04/22 09:35 Proposed Procedures p PLIF replace screw L3 new screw L2 connect to the previous contruct 53360/[id number](Not Applicable) - Nirmal Hannon, DO Any changes to Pre-Anesthetic Assessment?: Yes Changes from Pre-Anesthetic Assessment: Patient has had increased coughing (cough throughout day at baseline) with increased chest congestion and sputum production (at baseline has productive sputum). Denies fever and malaise. Elevated white count at baseline. CXR Does not appear changed to me. Improved lung sounds after Duoneb. Discussed with patient option of post poning, possible increased risk of respiratory complications of continuing with procedure. Discussed case with Doctor Hannon. Patient has unfortunately had cases cancelled on several occasions. Patient would like to proceed today despite increased risk for periopeartive respiratory event. He will be admitted after surgery by Doctor Hannon. Exam: Pre-Anes Outpt Exam: alert, oriented x 3 and regular rate & rhythm Additional Exam Findings (including area of procedure): Wheezing b/l, improved after Duoneb Cardiac Studies: No Data to Display
[2022-01-04 08:51] LABS: Glucose Point of Care 102 mg/dL (70-110)
--- NOTE | 2022-01-04 09:00 | XRR_ITS ---
PROCEDURE INFORMATION: Exam: XR Chest Exam date and time: 01/04/2022 9:25 AM Age: 41 years old Clinical indication: Pre-operative exam; Cardiovascular screening and respiratory screening exam; Additional info: Pre op, PT in ops room 5 TECHNIQUE: Imaging protocol: Radiologic exam of the chest. Views: 1 view. COMPARISON: CR (CHEST, ) 11/17/2021 8:29 PM FINDINGS: Lungs: Unremarkable. No consolidation. Pleural spaces: Unremarkable. No pleural effusion. No pneumothorax. Heart/Mediastinum: Unremarkable. No cardiomegaly. Bones/joints: Unremarkable. XR/XR chest 1V [id number] IMPRESSION: No significant abnormality.
[2022-01-04] MEDS: ipratropium-albuterol 3 mL Neb INHALATION (09:12)
[2022-01-04 09:17] LABS: Basophils # 0.1 10^3/uL (0.0-0.1); Basophils % 0.5 %; Eosinophils # 0.1 10^3/uL (0.0-0.8); Eosinophils % 0.5 %; Hematocrit 44.9 % (42.0-52.0); Hemoglobin 14.8 g/dL (11.7-16.6); Lymphocytes # 1.3 10^3/uL (0.8-4.8); Lymphocytes % 9.9 %; Mean Corpuscular Hemoglobin 25.7 pg (28.0-34.0); Mean Corpuscular Volume 78.1 fl (80-94); Mean Platelet Volume 9.5 fL (7.4-10.4); Monocytes # 0.7 10^3/uL (0.2-0.9); Monocytes % 5.5 %; Neutrophils # 11.04 10^3/uL (1.8-7.7); Neutrophils % 83.1 %; Nucleated Red Blood Cells % 0 %; Platelet Count 334 10^3/cmm (130-400); Red Blood Count 5.75 10^6/uL (4.1-5.3); Red Cell Distribution Width 14.8 % (12.1-15.1); White Blood Count 13.3 10^3/uL (4.0-10.0)
[2022-01-04] MEDS: sodium chloride 0.9% 1,000 ML 30 ML IV (09:33)
[2022-01-04] MEDS: fentaNYL 50 mcg/mL INJ 2mL IVP ×3 (09:42→13:09)
--- NOTE | 2022-01-04 09:51 | PM.HP ---
Providers/Chief Complaint Primary Care Provider: Chelita Mari NP Chief Complaint: PLIF [id number] History of Present Illness Aries Gutierrez is a 41 year old male He rates his pain an 8/10 with pain to his right low back and travels into his right leg. He states he has experienced urinary incontinence that started a few days ago. He states he was laying in bed and felt a pop to his low back yesterday 10/05.? He has experienced increase pain since this event. He denies any trauma. He noted grinding and popping to his lowback. Review of Systems Const: Denies: fever(s), change in appetite or change in sleep pattern Eyes: Denies: change in vision ENMT: Denies: odynophagia, hoarseness, nasal congestion or post nasal drip Card: Denies: chest pain or swelling of feet/ankles Resp: Reports: productive cough; Denies: dyspnea or non-productive cough GI: Denies: abdominal pain, dysphagia, heartburn, change in bowel habits or hematochezia : Denies: hematuria Musc: Reports: back pain (Chronic), extremity pain (both legs), joint pain (right hip), joint stiffness and limited range of motion; Denies: neck pain Skin/Breast: Denies: rash or pruritus Neuro: Denies: headache(s), difficulty walking or dizziness Psych: Denies: anxiety, depression, irritability or suicidal ideation Endo: Denies: hot flashes Ney/Lymph: Denies: easy bruising or enlarged lymph nodes All/Imm: Denies: seasonal rhinorrhea Medications/Allergies Home Medications Medication Instructions Recorded Confirmed Last Taken Type custom sole support #1 ea 07/14/20 01/03/22 Unknown Rx diabetic shoes no inserts #1 ea 07/14/20 01/03/22 Unknown Rx Diabetic Shoes #1 ea 08/13/20 01/03/22 Unknown Rx albuterol sulfate 2.5 mg/3 mL 2.5 mg (3 mL) inhalation QID PRN 11/12/20 01/04/22 01/03/22 20:00 Rx (0.083 %) solution for nebulization shortness of breath or wheezing #75 mL Custom Orthotics - Alpha and Calhoun #1 ea 09/14/21 01/03/22 Unknown Rx (1 pair) omeprazole 20 mg capsule,delayed 20 mg PO DAILY 90 days #90 caps 09/28/21 01/04/22 01/03/22 Rx release topiramate 50 mg tablet (Topamax) 50 mg PO BID 10/07/21 01/04/22 01/03/22 History gabapentin 800 mg tablet 800 mg PO TID 30 days #90 tabs 10/24/21 01/04/22 01/03/22 Rx albuterol sulfate 90 mcg/actuation 2 puff inhalation Q6H PRN 11/04/21 01/03/22 Unknown History aerosol inhaler (Ventolin HFA) Shortness Of Breath atorvastatin 80 mg tablet 80 mg PO BEDTIME 11/04/21 01/04/22 12/01/21 History budesonide-formoterol HFA 80 2 puff inhalation BID 11/04/21 01/04/22 01/04/22 07:00 History mcg-4.5 mcg/actuation aerosol inhaler (Symbicort) cetirizine 10 mg tablet (Zyrtec) 10 mg PO DAILY PRN Allergy Symptoms 11/04/21 01/04/22 01/03/22 07:00 History folic acid 1 mg tablet 1 mg PO QAM 11/04/21 01/04/22 01/03/22 08:00 History magnesium oxide 400 mg (241.3 mg 400 mg PO DAILY 11/04/21 01/04/22 12/01/21 History magnesium) tablet meclizine 25 mg tablet 25 mg PO QID PRN Dizziness 11/04/21 01/04/22 11/02/21 History nitroglycerin 0.4 mg sublingual 0.4 mg sublingual Q5M PRN Chest 11/04/21 01/03/22 Unknown History tablet (Nitrostat) Pain sitagliptin 100 mg-metformin ER 1 tab PO QAM 11/04/21 01/04/22 01/03/22 History 1,000 mg tablet,extended [id number] (Janumet XR) pantoprazole 40 mg tablet,delayed 40 mg PO BID 14 days #28 tabs 11/10/21 01/04/22 01/03/22 Rx release (Protonix) tizanidine 4 mg tablet (Zanaflex) 4 mg PO Q8H PRN muscle spasticity 12/01/21 01/04/22 01/03/22 Rx #90 tabs promethazine 25 mg tablet 25 mg PO Q6H PRN nausea and 12/16/21 01/04/22 01/02/22 Rx vomiting #60 tabs furosemide 40 mg tablet 40 mg PO QAM #90 tabs 12/19/21 01/04/22 01/03/22 07:00 Rx lisinopril 10 mg tablet 10 mg PO QAM #90 tabs 12/19/21 01/04/22 01/03/22 08:00 Rx oxycodone 5 mg tablet 5 mg PO Q6H PRN pain 7 days #30 12/27/21 01/04/22 01/01/22 Rx tabs diclofenac sodium 75 mg 75 mg PO DAILY 12/28/21 01/04/22 01/03/22 07:00 History tablet,delayed release cholecalciferol (vitamin D3) 50 50 mcg PO QAM 90 days #90 caps 12/30/21 01/03/22 01/03/22 Rx mcg (2,000 unit) capsule dapagliflozin 10 mg tablet 10 mg PO QAM 90 days #90 tabs 12/30/21 01/04/22 01/02/22 Rx (Farxiga) desvenlafaxine succinate 50 mg 50 mg PO QAM #30 tabs 12/30/21 01/04/22 01/03/22 07:00 Rx tablet,extended release 24 hr (Pristiq) olanzapine 20 mg tablet (Zyprexa) 20 mg PO BEDTIME #30 tabs 12/30/21 01/04/22 01/03/22 20:00 Rx potassium chloride 10 mEq 10 meq PO QAM 90 days #90 tabs 12/30/21 01/03/22 01/03/22 Rx tablet,extended release propranolol 10 mg tablet 10 mg PO TID 90 days #270 tabs 12/30/21 01/03/22 01/04/22 07:00 Rx Allergies Allergy/AdvReac Type Severity Reaction Status Date / Time quetiapine [From Seroquel] Allergy SEIZURES Verified 12/28/21 09:14 PFSH Acute PFSH: Medical History Chronic back pain COPD (chronic obstructive pulmonary disease) Diabetes mellitus Diabetic neuropathy Elevated LFTs Encounter for screening laboratory testing for COVID-19 virus Folate deficiency Gauchers disease Generalized anxiety disorder GERD (gastroesophageal reflux disease) Hyperlipidemia Hypertension Nonunion of spinal fusion Peripheral edema Psychiatric care Residual schizophrenia Viral gastroenteritis Vitamin D deficiency Surgical History History of vasectomy Family History Other Diabetes Hypertension Denies family history of Cancer Social History Smoking and tobacco status: never smoked Quit status (tobacco): has tried quititng Smoking risk assessment/counseling performed?: Yes Tobacco counseling given: counseling >3 minutes and other Alcohol intake: never Desire information about alcohol rehabilitation?: No Counseling given: No Desire information about substance/drug rehabilitation?: No Counseling given: No Adopted: No Caregiver/support person: No Lives independently: Yes Household members: family Housing: House Marital status: Single Number of children: 2 service: No Current occupational status: disabled History of recent travel: No Current gender identity: Male Vitals/I&O/Wt Last Vital Signs Temp 97.4 F L 01/04/22 08:20 Pulse 104 H 01/04/22 08:20 Resp 18 01/04/22 08:20 BP 130/90 01/04/22 08:20 Pulse Ox 98 01/04/22 08:20 O2 Del Method 01/04/22 08:33 Physical Exam Narrative: CONSTITUTIONAL: The patient is a normal appearing [] in no apparent distress. GENERAL: Patient in no acute distress. CARDIAC: Regular rate and rhythm. CHEST: Normal inspiratory effort, normal respiratory rate. ABDOMEN: Soft and nontender. SKIN: Clear, warm and intact. NEURO?PSYCH: The patient is alert and oriented to person, place and time. Sensorv /SILT Motor StrengthShoulder abduction C5 5/5Wrist extension C6 5/5Elbow extension C7 5/5Hand Aerophysicist C8 5/5Finger abduction T15/5 Radial/ Ulnar/ Median n intact LowerSensory (SILT)Motor StrengthHin flexion L2/3Ant/inner thigh 5/5Hip adduction L2/3 5/5Knee extension L4 Lat thigh, 5/5Toe dorsiflexion L5 5/5Ankle dorsiflexion L5/ [id number] flexion S1 5/5 DTRBleeps 2+Triceps 2+Brachioradialis 2+Patellar 2+Achilles 2+ MUSCULOSKELETAL: [] UPPEREXTREMITIES: The patient had full active ROM in fingers, wrist, elbow, and shoulder. The patient demonstrated ability to fully flex/extend/abduct/adduct fingers, make ok sign, cross 2nd/3rd digits, extend 1st digit fully.. Radial pulse 2+, CR<2 seconds. LOWER EXTREMITIES: Pt has full, active ROM of toes, ankle, knee, and hip. Dorsalis pedis/posterior tibialis pulses 2+, CR<2 seconds. SPINE: Skin warm, dry, intact. Data : 01/04/22 08:45 12/28/21 09:29 A&P Assessment and plan (1) Status post lumbar spinal fusion: revision fusion Attestations Medical Necessity Statement*: broken hardware Coding Level of Care Code Acute Electrical Instrument Technician for Chg Fwd Diagnoses Status post lumbar spinal fusion Z98.1
[2022-01-04 10:00] LABS: Blood Urea Nitrogen 11 mg/dL (6-20); Calcium 9.6 mg/dL (8.5-10.5); Carbon Dioxide 25 mmol/L (22-29); Chloride 97 mmol/L (98-107); Glomerular Filtration Rate 83.2 mL/min (90-130); Glucose 95 mg/dL (65-115); Osmolality Calculated 277 mOsm/kg (285-295); Sodium 134 mmol/L (136-145)
[2022-01-04 10:02] LABS: Anion Gap 16.3 (5-19); Potassium 4.3 mmol/L (3.5-5.1)
[2022-01-04] MEDS: ceFAZolin 2,000 MG in sodium chloride 0.9% (plus) 50 ML 100 MG IV ×2 (10:34→17:37)
[2022-01-04] MEDS: vancomycin 1,000 MG SDV 1000 MG IRRIGATION (11:15)
--- NOTE | 2022-01-04 12:44 | P.OP_ITS ---
Operative Report Date of procedure: January 04, 2022 Pre-op diagnosis: Preop Diagnosis Failed back syndrome, pseudoarthrosis, nicotine dependence Post-op diagnosis: same Procedure done: 1. L2 to L3 posterior lateral fusion 2. Instrumentation from L2-L3 3. Use of allograft 4. Removal of deep hardware from spine Surgeon: Nirmal Hannon Rolled Materials Worker: Jairo Barraza Rolled Materials Worker: The political science research assistant, Jairo Barraza, PAC was needed for his expertise with spine. He was important and necessary throughout the procedure to complete in a safe and timely manner. He assisted with patient positioning prepping and draping tissue retraction suctioning of the operative field protection of the critical structures and tissue closure Estimated blood loss (mL): 30 Procedure: 1. L2 to L3 posterior lateral fusion 2. Instrumentation from L2-L3 3. Use of allograft 4. Removal of deep hardware from spine Patient is brought to the operative suite after undergoing anesthesia was placed in the prone position all areas impingement well-padded. Skin incision was made using the previous top of the incision and then extending it superiorly. At this point the dissection was brought down to the L3 screws bilaterally. The left side the marc had dislodged from the screw to her. The cap was on tight to help was held while it Done. And the Screw Was Backed out. The L3 Screw on the Right Side the Cath Was Removed. On the Right Side It Was Coral That I Could Get a Screw into L2 without Having to Remove the L3 Screw and Do a Marc Connector. Using the Pedicle Finder All the Pedicle Was Identified Bilaterally at L2. The Probe Was Brought down Pedicle Feeler Was Then Used To Palpate the Pedicle. C- Arm Imaging Showed That It Was in the Prone Position. And Then 2 6.5 Mm Screws Were Placed at L2 the Marc Connector Was Then Attached onto the Distal Tip of the Marc on the Right and Left Side. And Then a Marc Was Placed into the L2 Screw Connected to the Marc Connector That Was Connected to the L3 Screw on the Right and Then the caps were placed on the screws and the marc connectors connecting the rods. Next attention was brought to decorticating the L2 transverse process and lamina of L2 and L3. This was done bilaterally. The OsteoMed bone graft was then placed and wound was closed in layered fashion with 0 Vicryl 2-0 Vicryl and Monocryl and Steri-Strips. Sterile dressings applied patient was t ransferred to the PACU in stable addition.
[2022-01-04] MEDS: HYDROmorphone 1 mg/mL INJ 1 mL 0.5 MG IVP (14:03)
--- NOTE | 2022-01-04 14:04 | SUR.PHASEI ---
13:40 BACK ASSESSED. SURGICAL DRESSING COMPLETELY SATURATED IN BLOOD. DRESSING REMOVED AND STERILE PRESSURE DRESSING APPLIED BY PONCHO JASMINE PA-C. PILLOW PLACED BEHIND PATIENT WITH PATIENT LAYING ON IT. IV DILAUDID 0.5MG GIVEN PER DOCTOR CRYSTAL. PATIENT TOLERATED PROCEDURE WELL.
--- NOTE | 2022-01-04 14:26 | SUR.PHASEI ---
14:25 report given to JESSICA PERALTA. PATIENT WITH RELIEF OF BACK PAIN. ROM AND SENSATION ALL 4 EXTREMITIES.
[2022-01-04] MEDS: gabapentin 400 mg Capsule 800 MG PO ×2 (16:16→20:38)
[2022-01-04] MEDS: propranolol 20 mg Tablet 10 MG PO ×2 (16:16→20:37)
[2022-01-04] MEDS: oxyCODONE-APAP 10-325 mg Tablet PO ×2 (16:17→20:58)
[2022-01-04] MEDS: lactated ringers 1,000 ML 90 ML IV (16:24)
--- NOTE | 2022-01-04 16:38 | ANE.PACU2 ---
Inpatient post-anesthesia follow up: Airway intact: Yes Vital signs: Temperature 97.4 F Pulse Rate 112 Respiratory Rate 18 Blood Pressure 114/70 Pulse Oximetry 98 Oxygen Delivery Me thod Room Air Oxygen Flow Rate 5 Fraction of Inspir ed Oxygen Hydration adequate: Yes Nausea and vomiting: No Pain level: 7 Mental status: Baseline Additional Comments: Pain 7 despite multi modal analgesia
--- NOTE | 2022-01-04 16:52 | PC.NURSE ---
abdominal binder place per request of Jairo PARISI.PT REPORTS THIS HELPS HIS BACK PAIN
[2022-01-04] MEDS: docusate sodium 100 mg Capsule PO (17:36)
[2022-01-04] MEDS: budesonide 0.5 mg/2 mL Neb INHALATION (19:58)
[2022-01-04] MEDS: OLANZapine 10 mg TABLET 20 MG PO (20:38)
[2022-01-04] MEDS: atorvastatin 40 mg Tablet 80 MG PO (20:38)
[2022-01-04] MEDS: ketorolac 30 mg/mL INJ IVP (20:39)
[2022-01-04] MEDS: pantoprazole DR 40 mg Tablet PO (20:39)
[2022-01-04] MEDS: topiramate 25 mg Tablet 50 MG PO (20:42)
[2022-01-05] VITALS (8 sets, daily range): BP systolic 110–126; BP diastolic 70–77; PULSE 93–97; RESP 16–19; TEMP 36.4–36.8; O2SAT 94–95
[2022-01-05] MEDS: oxyCODONE-APAP 10-325 mg Tablet PO ×4 (00:44→13:00)
[2022-01-05] MEDS: ceFAZolin 2,000 MG in sodium chloride 0.9% (plus) 50 ML 100 MG IV ×2 (01:48→10:10)
[2022-01-05] MEDS: ketorolac 30 mg/mL INJ IVP (03:50)
[2022-01-05] MEDS: tizanidine 4 mg Tablet PO ×2 (03:50→12:11)
[2022-01-05] MEDS: lactated ringers 1,000 ML 90 ML IV (05:21)
[2022-01-05] MEDS: folic acid 1 mg Tablet PO (05:21)
[2022-01-05] MEDS: FUROsemide 40 mg Tablet PO (05:22)
[2022-01-05] MEDS: lisinopril 10 mg Tablet PO (05:22)
[2022-01-05] MEDS: desvenlafaxine 50 mg Tablet PO (05:35)
--- NOTE | 2022-01-05 07:12 | PM.PN ---
Subjective Subjective: POD 1 Pt Resting comfortably. Denies Back pain, SOB or CP. Pain controlled with meds. Vitals/I&O/Wt Last Vital Signs Temp 98.3 F 01/05/22 04:00 Pulse 93 01/05/22 04:00 Resp 16 01/05/22 05:22 BP 110/70 01/05/22 04:00 Pulse Ox 94 01/05/22 04:00 O2 Del Method 01/04/22 22:36 O2 Flow Rate 5 01/04/22 20:00 01/04/22 01/05/22 01/05/22 22:59 06:59 14:59 Intake Total 630 / 810 1290 / 2100 Output Total 850 / 1250 0 / 1250 Balance -220 / -440 1290 / 850 Weight last 48 hrs Weight 192 lb 12.8 oz Weight 200 lb 12.8 oz Physical Exam Narrative: Patient presents alert and oriented x3 with a good general appearance normal mood and affect. Normal coordination normal stability. Mild tenderness around the incisional site with the incision showing bloody drainage. No signs of infection. Patient denies any fevers or chills. 5/5 motor strength both lower extremities with negative straight leg raise bilaterally. Calves are supple no medial thigh tenderness. Pulses are 2+ at the dorsalis pedis and posterior tibial region. Good capillary refill throughout normal sensation light touch both lower extremities. Urinary Catheter Management: Rollins: Cath Placed During This Visit: yes, but has since been removed by the nurse Urinary Catheter Date of Insertion: 01/04/22 Urinary Catheter Time of Insertion: 11:00 Date Urinary Catheter Removed: 01/04/22 Time Urinary Catheter Discontinued: 11:50 Data : 01/04/22 08:45 01/04/22 08:45 A&P Assessment and plan (1) Status post lumbar spinal fusion: Discussed with the nurses will have dressings changed reapply Silverlon island dressing with ABDs and Medipore tape to help tamponade the bleeding with continued abdominal binder. As long as we can control the drainage we will plan to discharge later today. We will see him back in 1 week's time for wound check. (2) Chronic lower back pain: Qualifiers: Back pain laterality: unspecified Sciatica presence: unspecified whether sciatica present Qualified Code(s): M54.50 - Low back pain, unspecified; G89.29 - Other chronic pain Attestations Medical Necessity Statement*: Charge home later today if drainage subsides to the lumbar incision Coding Level of Care Code Acute Visual Communications Instructor for g Fwd Diagnoses Status post lumbar spinal fusion Z98.1 Chronic lower back pain M54.50; G89.29 Back pain laterality: unspecified Sciatica presence: unspecified whether sciatica present
[2022-01-05] MEDS: budesonide 0.5 mg/2 mL Neb INHALATION (07:50)
[2022-01-05] MEDS: gabapentin 400 mg Capsule 800 MG PO (08:18)
[2022-01-05] MEDS: magnesium oxide 400 mg tablet PO (08:18)
[2022-01-05] MEDS: topiramate 25 mg Tablet 50 MG PO (08:18)
[2022-01-05] MEDS: propranolol 20 mg Tablet 10 MG PO (08:18)
[2022-01-05] MEDS: pantoprazole DR 40 mg Tablet PO (08:18)
[2022-01-05] MEDS: docusate sodium 100 mg Capsule PO (08:18)
--- NOTE | 2022-01-05 10:52 | PC.CHAP ---
Pastoral Care Encounter/Spiritual Assessment Type of Contact [] Declined regional refrigerated cdl truck driver visit [] Patient/Family/Request visit [] Outpatient visit [] Follow-up visit [] Physician referral [] Code/Alert [x] Routine visit [] Staff referral [] Actively dying [] Patient sleeping [] Family support [] [] Out of room [] Palliative care [] [x] Receiving care in room [] Pre-surgical visit [] Trauma [] Long length of stay [] ICU visit [] Other: Relational/Emotional Strength [x] Patient feels connected with others/family/visitors/staff [] Distress [] Loneliness/isolation [] Abandonment Spirituality of Patient [x] Person of Alivia [] Attends Church of their Alivia [x] Believes in Prayer [] Reads Bible or Methodist materials [] There are Spiritual issues to be addressed Senior Budget Analyst Interventions [x] Prayer [x] Active listening [x] Non-anxious presence [x] Spiritual/emotional support [] Crisis/trauma care [x] Spiritual counseling [] Bereavement support [] Provided bereavement packet [] Provided Bible/devotional materials [] Provided toy/stuffed animal, coloring book to patient or family member [] Provided Communion [] Anointing/Gobler [] Salvation [x] Completed spiritual assessment [] Other: Impact on Illness or Injury [] Angry [] Fearful [] Anxious [] Often cries [] Exhaustion [] Unable to work [] Unable to attend hoahaoism [] Unable to walk/stand [] Unable to read [] Unable to drive [] Unable to eat/drink [] Unable to sleep [] Unable to be with family [] Patient intubated [] Other: Summary surgery on back has some compications to deal with has a good attitude well go home at some point Time spent with patient 10 mins
--- NOTE | 2022-01-06 14:50 | PM.DCS ---
Discharge Providers Date of Admission: 01/04/22 08:10 Date of Discharge: January 05, 2022 Attending Provider at Admission: Nirmal Hannon DO Attending Provider at Discharge: Nirmal Hannon DO Primary Care Provider: Chelita Mari NP Diagnoses at Discharge Discharge Diagnosis (1) Status post lumbar spinal fusion: Status: Acute (2) Chronic lower back pain: Status: Inactive Qualifiers: Back pain laterality: unspecified Sciatica presence: unspecified whether sciatica present Qualified Code(s): M54.50 - Low back pain, unspecified; G89.29 - Other chronic pain Reason for Visit Reason for Visit: PLIF 17327/26329/T84.296 Hospital Course Hospital Course uneventful Physical Exam Urinary Catheter Management: Rollins: Cath Placed During This Visit: yes, but has since been removed by the nurse Urinary Catheter Date of Insertion: 01/04/22 Urinary Catheter Time of Insertion: 11:00 Date Urinary Catheter Removed: 01/04/22 Time Urinary Catheter Discontinued: 11:50 Discharge Data Studies Completed and Pending Completed Studies During Hospitalization Category Date Time Status XR chest 1V 96249 Urgent Exams 01/04/22 09:00 Completed XR lumbar spine 2-3V* 89788 Routine Exams 01/04/22 Completed Pending at discharge Category Date Time Status Leukocyte Reduced RBC Stat Lab 01/04/22 08:45 Results Type and Screen Stat Lab 01/04/22 08:45 Results Radiology Impressions Lumbar Spine X-Ray 01/04/22 00:00 IMPRESSION: Postoperative lumbar spine as above. Chest X-Ray 01/04/22 09:00 IMPRESSION: No significant abnormality. Laboratory Results WBC 13.3 10^3/uL (4.0-10.0) H 01/04/22 08:45 RBC 5.75 10^6/uL (4.1-5.3) H 01/04/22 08:45 Hgb 14.8 g/dL (11.7-16.6) 01/04/22 08:45 Hct 44.9 % (42.0-52.0) 01/04/22 08:45 MCV 78.1 fl (80-94) L 01/04/22 08:45 MCH 25.7 pg (28.0-34.0) L 01/04/22 08:45 MCHC 33.0 g/dL (30.0-36.0) 01/04/22 08:45 RDW 14.8 % (12.1-15.1) 01/04/22 08:45 Plt Count 334 10^3/cmm (130-400) 01/04/22 08:45 MPV 9.5 fL (7.4-10.4) 01/04/22 08:45 Neut % (Auto) 83.1 % 01/04/22 08:45 Lymph % (Auto) 9.9 % 01/04/22 08:45 [place] % (Auto) 5.5 % 01/04/22 08:45 Eos % (Auto) 0.5 % 01/04/22 08:45 Baso % (Auto) 0.5 % 01/04/22 08:45 Neut # (Auto) 11.04 10^3/uL (1.8-7.7) H 01/04/22 08:45 Lymph # (Auto) 1.3 10^3/uL (0.8-4.8) 01/04/22 08:45 [place] # (Auto) 0.7 10^3/uL (0.2-0.9) 01/04/22 08:45 Eos # (Auto) 0.1 10^3/uL (0.0-0.8) 01/04/22 08:45 Baso # (Auto) 0.1 10^3/uL (0.0-0.1) 01/04/22 08:45 Nucleated RBC % (auto) 0 % 01/04/22 08:45 Nucleated RBCs # 0.0 /100WBC 01/04/22 08:45 Sodium 134 mmol/L (136-145) L 01/04/22 08:45 Potassium 4.3 mmol/L (3.5-5.1) 01/04/22 08:45 Chloride 97 mmol/L (98-107) L 01/04/22 08:45 Carbon Dioxide 25 mmol/L (22-29) 01/04/22 08:45 Anion Gap 16.3 (5-19) 01/04/22 08:45 BUN 11 mg/dL (6-20) 01/04/22 08:45 Creatinine 1.0 mg/dL (0.7-1.2) 01/04/22 08:45 GFR Calculation 83.2 mL/min (90-130) L 01/04/22 08:45 Glucose 95 mg/dL (65-115) 01/04/22 08:45 POC Glucose 102 mg/dL (70-110) 01/04/22 08:47 Calculated Osmolality 277 mOsm/kg (285-295) L 01/04/22 08:45 Calcium 9.6 mg/dL (8.5-10.5) 01/04/22 08:45 Blood Type A Negative 01/04/22 08:45 Rho(D) Type Negative 01/04/22 08:45 Antibody Screen Negative 01/04/22 08:45 Crossmatch See Detail 01/04/22 08:45 Vitals Last Vital Signs Temp 97.5 F L 01/05/22 11:43 Pulse 97 01/05/22 11:43 Resp 19 H 01/05/22 13:00 BP 126/77 01/05/22 11:43 Pulse Ox 94 01/05/22 11:43 O2 Del Method 01/05/22 11:43 O2 Flow Rate 5 01/04/22 20:00 Discharge Plan Discharge Patient Disposition: Home Condition: Stable Prescriptions: New oxycodone 10 mg tablet 10 - 20 mg PO Q4H PRN (Reason: pain) 7 Days Qty: 40 0RF albuterol sulfate 90 mcg/actuation HFA aerosol inhaler 2 inh inhalation Q8H PRN (Reason: shortness of breath or wheezing) 30 Days Qty: 8.5 0RF budesonide-formoterol 80-4.5 mcg/actuation HFA aerosol inhaler 2 inh inhalation Q12H 30 Days Qty: 10.2 0RF Continued [place] [place] See Rx Instructions .Route .MEDSUPPLY Qty: 1 0RF Rx Instructions: As directed albuterol sulfate 2.5 mg /3 mL (0.083 %) solution for nebulization 2.5 mg INHALATION QID PRN (Reason: shortness of breath or wheezing) Qty: 75 2RF [place] custom sole support See Rx Instructions .Route .MEDSUPPLY Qty: 1 0RF Rx Instructions: As directed by courtney [place] diabetic shoes no inserts See Rx Instructions .Route .MEDSUPPLY Qty: 1 0RF Rx Instructions: As directed promethazine 25 mg tablet 25 mg PO Q6H PRN (Reason: nausea and vomiting) Qty: 60 0RF (DME) Custom Orthotics - Alpha and [place] (1 pair) See Rx Instructions .Route .MEDSUPPLY Qty: 1 0RF Rx Instructions: As directed omeprazole 20 mg capsule,delayed release(DR/EC) 20 mg PO DAILY 90 Days Qty: 90 3RF Hold Instructions: Resume on 11/18/21. tizanidine [Zanaflex] 4 mg tablet 4 mg PO Q8H PRN (Reason: muscle spasticity) Qty: 90 0RF gabapentin 800 mg tablet 800 mg PO TID 30 Days Qty: 90 3RF furosemide 40 mg tablet 40 mg PO QAM Qty: 90 0RF lisinopril 10 mg tablet 10 mg PO QAM Qty: 90 0RF Farxiga 10 mg tablet 10 mg PO QAM 90 Days Qty: 90 1RF cholecalciferol (vitamin D3) 50 mcg (2,000 unit) capsule 50 mcg PO QAM 90 Days Qty: 90 1RF potassium chloride 10 mEq tablet extended release 10 meq PO QAM 90 Days Qty: 90 1RF propranolol 10 mg tablet 10 mg PO TID 90 Days Qty: 270 1RF desvenlafaxine succinate [Pristiq] 50 mg tablet extended release 24 hr 50 mg PO QAM Qty: 30 2RF olanzapine [Zyprexa] 20 mg tablet 20 mg PO BEDTIME Qty: 30 2RF nitroglycerin [Nitrostat] 0.4 mg Tablet, Sublingual 0.4 mg SUBLINGUAL Q5M PRN (Reason: Chest Pain) Rx Instructions: do not exceed 3 doses per episode cetirizine [Zyrtec] 10 mg tablet 10 mg PO DAILY PRN (Reason: Allergy Symptoms) magnesium oxide 400 mg (241.3 mg magnesium) tablet 400 mg PO QAM folic acid 1 mg tablet 1 mg PO QAM albuterol sulfate [Ventolin HFA] 90 mcg/actuation HFA aerosol inhaler 2 puff inhalation Q6H PRN (Reason: Shortness Of Breath) budesonide-formoterol [Symbicort] 80-4.5 mcg/actuation HFA aerosol inhaler 2 puff inhalation BID Janumet XR 100-1,000 mg tablet, ER multiphase 24 hr 1 tab PO QAM diclofenac sodium 75 mg tablet,delayed release (DR/EC) 75 mg PO DAILY PRN (Reason: Pain) tamsulosin 0.4 mg capsule 0.4 mg PO DAILY Nasal [place] (oxymetazoline) 0.05 % [place],Non-Aerosol 1 - 2 spray INTRANASAL QAM Discharge Orders: Discharge Order (Routine); Ordered 01/05/22 Ordered By: Jairo Barraza Referrals: Nirmal Hannon DO [Physician] - 01/12/22 10:15 am Discharge Diet: Advance as tolerated Discharge Activity: Limit activity as instructed Patient Instructions: Oxycodone/Acetaminophen (By mouth), Albuterol (By breathing), Budesonide (By breathing), Lumbar Spinal Fusion (GEN), Opioid Safety Activity Restrictions/Additional Instructions: Thank you for choosing [facility] for your care! The following is a list of instructions, from your provider, to follow upon your discharge to ensure you have the optimal recovery from your recent injury or surgery. Follow-up care is a dennis part of your treatment and safety. Be sure to make and go to all appointments and call your doctor if you are having problems. If you do not already have a follow-up appointment made, call Dr. Hannon's] office in the next 1-3 days to make follow up appointment for 1 weeks at [phone]. It is also a good idea to know your test results and keep a list of the medicines you take. Medications will be prescribed for you at your provider's discretion. These medications are to be used as instructed; if they are taken more often that prescribed they will not be refilled early and in most cases will not be refilled at all. > When a refill is needed, you should contact armando hodgson 2-3 business days before your prescription runs out. Medications will NOT be refilled by public relations providers after hours! > Many pain medications contain Tylenol (Acetaminophen). Do not consume more than 4,000 mg of Tylenol per day in total with any combination of medications. > Pain medications can cause constipation. Please use an over the counter stool softener as directed, while taking pain medications. Consult your local pharmacist with questions or recommendations on stool softeners. If constipation persists, contact our office or your primary care provider. > While under our care, you are not to receive pain medications or other controlled substances from any other provider unless our office is notified and approves. Any attempts to do so will result in refusal to prescribe any further pain medications and possible dismissal from our practice. ? Walking is essential for the healing process after surgery. We would like you to slowly advance your walking. This should be done on relatively flat clear ground (inside or out) or can be done on a treadmill. Remember this goal does not have to happen all at once, slowly increase your distance and duration. This can be broken into more more than one walk per day as tolerated. Patients who walk as directed after surgery rarely require Physical Therapy. In the unlikely event this issue arises your provider will direct hospital staff to make the appropriate arrangements. ? No lifting over 5 pounds {a gallon of milk) or bending/twisting until further notice. Each of these activities places an unnecessary amount of stress onto the body and can impede the delicate healing process. > Instead of bending at the waist, keep your back straight and bend at the knees. > Instead of twisting your torso, keep your back straight and turn your entire body with your feet. ? You may sleep in any position which makes you comfortable. Many patients find comfort sleeping in a reclining chair. It is not abnormal to have difficulty sleeping for the first several weeks following your surgery. We recommend trying Benadry! or Tylenol PM as directed to help with your sleeping difficulties. Both medications are over the counter and available without prescription. ? NO SMOKING!!! Smoking dramatically increases the probability of developing postoperative wound infections. ? Common complaints after lumbar and/or thoracic spine surgery include, but are not limited to: numbness and/or tingling in the legs, pain around the incision and surrounding tissues, muscle spasms, or stiffness of the middle to low back. Contact our office if these symptoms persist or if an acute change occurs. ? No driving for the first 3-5days, and not while taking narcotics until seen at your follow-up appointment and cleared. There are no restrictions for riding on short trips, however if you take a longer trip, arrangements should be made to make regular stops to get out of the vehicle and stretch . ? Swelling is an unfortunate event that will take place with any surgery and is the primary source of your postoperative discomfort. While walking and regular approved activities helps control inflammation, there are additional steps you can take to minimize swelling. > Place ice over the surgical site and surrounding tissue for twenty minutes, followed by applying a low/medium heat (heating pad) for an additional twenty minutes every 1-2 hours as needed for painrelief. > You may use of over the counter anti-inflammatory medications (Ibuprofen, Motrin, Aleve, Advil, etc) as directed on the package label. These types of medicines will significantly reduce the amount of discomfort you experience after surgery from swelling. It should be noted that if you have and allergy to any of these medications, or a history of ulcers or kidney disease you should consult you primary care provider prior to starting these medications. Discharge Attestations Time Spent in Discharge Care*: less than 30 min Quality Metrics Clinical Quality Measures [ No reported AMI, CVA or VTE this stay] Coding Level of Care Code Acute g FW AR note Diagnoses Status post lumbar spinal fusion Z98.1 Chronic lower back pain M54.50; G89.29 Back pain laterality: unspecified Sciatica presence: unspecified whether sciatica present
== END 2022-01-05 13:15 | disposition home or self-care (01) | DRG 460 ==
LOC: MEDSURG 01-05 02:13
PROVIDERS: Anesthesiology; Admitting Provider Orthopaedic Surgery; PCP Nurse Practitioner Family; Visit Provider Orthopaedic Surgery
PROC: 0SG00K1 Fusion of Lumbar Vertebral Joint with Nonautologous Tissue Substitute, Posterior Approach, Posterior Column, Open Approach (ICD-10-PCS; CPT 22612; principal; 2022-01-04 09:35)
DX: T84.226A Displacement of internal fixation device of vertebrae, initial encounter (principal); F20.5 Residual schizophrenia; M96.0 Pseudarthrosis after fusion or arthrodesis; Y79.8 Miscellaneous orthopedic devices associated with adverse incidents, not elsewhere classified; E11.42 Type 2 diabetes mellitus with diabetic polyneuropathy; J44.9 Chronic obstructive pulmonary disease, unspecified; R32 Unspecified urinary incontinence; G89.29 Other chronic pain; M54.50 Low back pain, unspecified; F41.1 Generalized anxiety disorder; K21.9 Gastro-esophageal reflux disease without esophagitis; E78.5 Hyperlipidemia, unspecified; I10 Essential (primary) hypertension; F17.200 Nicotine dependence, unspecified, uncomplicated; Z79.84 Long term (current) use of oral hypoglycemic drugs
CPT/HCPCS: 36415; 36416; 51702; 71045; 72100; 76000; 80048; 82962; 85025; 86850; 86900; 86920; 94640; 97116; 97161; C1713; J1170; J1885; J3010; J3370; J7030; J7611; J7626

== ENCOUNTER → 2022-01-12 09:32 | Outpatient (BNVA) | payer MEDICARE, MEDICAID, SELFPAY | PROVIDERS: PCP Nurse Practitioner Family; Visit Provider Orthopaedic Surgery | DX: Z47.89 Encounter for other orthopedic aftercare (principal); Z98.1 Arthrodesis status | CPT/HCPCS: 99024 ==

== ENCOUNTER → 2022-01-19 08:56 | Outpatient (BNVA) | payer MEDICARE, MEDICAID, SELFPAY | PROVIDERS: PCP Nurse Practitioner Family; Visit Provider Orthopaedic Surgery | DX: Z47.89 Encounter for other orthopedic aftercare (principal); Z98.1 Arthrodesis status | CPT/HCPCS: 99024 ==

== ENCOUNTER → 2022-01-24 13:36 | Outpatient (BNVA) | payer MEDICARE, MEDICAID, SELFPAY | PROVIDERS: PCP Nurse Practitioner Family; Visit Provider Orthopaedic Surgery | DX: Z47.89 Encounter for other orthopedic aftercare (principal); Z98.1 Arthrodesis status | CPT/HCPCS: 72100; 99024 ==

== ENCOUNTER → 2022-02-21 14:25 | Outpatient (BNVA) | payer MEDICARE, MEDICAID, SELFPAY | PROVIDERS: PCP Nurse Practitioner Family; Visit Provider Orthopaedic Surgery | DX: Z98.1 Arthrodesis status; Z47.89 Encounter for other orthopedic aftercare | CPT/HCPCS: 72100; 99024 ==

== ENCOUNTER 2022-02-27 12:04 | Outpatient (CLI) | payer MEDICARE, MEDICAID, SELFPAY ==
--- NOTE | 2022-02-27 12:30 | CT_ITS ---
WS: [id number] CT LUMBAR SPINE, with and without contrast. HISTORY: Z98.1 - Arthrodesis status TECHNIQUE: Contiguous 2.0 mm axial imaging are performed. Pre and postcontrast imaging. Sagittal and coronal reformats are submitted and reviewed. All CT scans at [facility] use at least one of these dose optimization techniques: automated exposure control; mA and/or kV adjustment per patient s ize (includes targeted exams where dose is matched to clinical indication); or iterative reconstructi on. IV contrast: Omnipaque 350; 95 mL IV. DLP: 3524.97 mGy.cm COMPARISON: 09/19/[address] the LEFT interconnecting rocio is been repositioned and is now aligned with the fast ener. Fastner reinforcement is now noted bilaterally at the L2-3 level. New posterior fusion hardware at L2. Significant lucency surrounding the L2 pedicle screws. Stable lucency surrounding the single L3 RIGHT pedicle screw. The LEFT L3 pedicle screw has been removed since the prior study. No significant lucency around the L4 or L5 pedicle screws or at S1. Grade 1 anterolisthesis of L5 by 6.3 mm. Interbody spacers at L4-5 and L5-S1. No change in position or alignment. There is significant artifact from the vertebral bodies from the hardware. L1-2: No stenosis. Large posterior laminectomy defect with bone grafting. Incomplete fusion of the abram ne graft. L2-3: Large posterior laminectomy defect. Mild foraminal stenosis. No fusion of bone graft. L3-4: Mild disc bulging and ligamentum flavum hypertrophy. L4-5: Significant artifact from the hardware. There is a large posterior laminectomy defect. No signi ficant foraminal stenosis. Postsurgical changes in the soft tissues. L5-S1: No significant stenosis. Large posterior laminectomy defect. Postsurgical changes in the soft tissues. Stable lucency surrounding the RIGHT S1 pedicle screw. There is mild enhancement within the soft tissues along the posterior lumbar spine extending from L1 to S1. There is no well organized collection. Infection is obviously not excluded. This may be approp riate for post operative changes. CT/CT lumbar spine wo/w con [id number] IMPRESSION: 1. Since the prior study new posterior fusion hardware has been placed at L2 w ith realignment of the LEFT interconnecting rocio. 2. Large posterior laminectomy defects with enhancement and soft tissue change s extending along the posterior lumbar vertebral bodies. The mild enhancement m ay all be secondary to recent postoperative changes. Abscess is not completely excluded but there is no well circumscribed collection. 3. Significant lucency surrounding the L2 pedicle screws most likely due to sc rew loosening. 4. Lucency surrounding the RIGHT L3 pedicle screw. Likely due to loosening. Th e LEFT L3 pedicle screw has been removed since the prior study. 5. Grade 1 anterolisthesis of L5 is unchanged. 6. Immature bone grafting but progressed since 09/19/2021.
[2022-02-27] MEDS: iohexol 350 mg/mL 100 mL Btl IV (13:07)
== END 2022-02-27 12:05 | disposition home or self-care (01) ==
LOC: RAD 12:05
PROVIDERS: PCP Nurse Practitioner Family; Visit Provider Orthopaedic Surgery
DX: Z98.1 Arthrodesis status (principal); M54.16 Radiculopathy, lumbar region
CPT/HCPCS: 72133; Q9967

== ENCOUNTER → 2022-02-28 14:23 | Outpatient (BNVA) | payer MEDICARE, MEDICAID, SELFPAY | PROVIDERS: PCP Nurse Practitioner Family; Visit Provider Orthopaedic Surgery | DX: M54.50 Low back pain, unspecified (principal) | CPT/HCPCS: 99024 ==

== ENCOUNTER 2022-03-08 06:33 | Day surgery (SDC) | payer MEDICARE, MEDICAID, SELFPAY ==
[2022-03-07 09:02] VITALS: BMI 26.6
[2022-03-07 10:02] LABS: Anion Gap 17.1 (5-19); Blood Urea Nitrogen 7 mg/dL (6-20); Calcium 10.2 mg/dL (8.5-10.5); Carbon Dioxide 25 mmol/L (22-29); Chloride 98 mmol/L (98-107); Creatinine Clr Calc Pharmacy 131.6486; Glomerular Filtration Rate 107.6 mL/min (90-130); Glucose 147 mg/dL (65-115); Osmolality Calculated 283 mOsm/kg (285-295); Potassium 4.1 mmol/L (3.5-5.1); Sodium 136 mmol/L (136-145)
--- NOTE | 2022-03-07 16:05 | ANES.PREANE2 ---
Pre-Anesthetic Assessment Height/Weight: Height 1.75 m Weight 81.647 kg Preop Diagnosis: Failed hardware lumbar spine Operation Date: 03/08/22 08:20 Proposed Procedures p Removal OF SEGMENTAL POSTERIOR INSTERMENTATION 82025/M54.16/Z98.1(Not Applicable) - Nirmal Hannon DO Familial anesthetic complications: none Was Beta Bryanna taken within 24 hours: Yes Was Clonidine taken within 24 hours: N/A Social Tobacco and No alcohol Exam alert, oriented x 3 and regular rate & rhythm Airway Submandibular: within normal limits Cervical ROM: within normal limits Mallampati: Class II Dentition: false Pulmonary Chronic Obstructive Pulmonary Disease CV/HEM Hypertension GI Gastroesophageal Reflux Disease Metabolic Diabetes Mellitus and Hyperlipidemia Musc/skel Lower Back Pain Chronic pain/opioid Anesthetic Plan ASA status: 3 Anesthesia: General Medications/Allergies Home Medications Medication Instructions Recorded Confirmed Last Taken Type custom sole support #1 ea 07/14/20 03/03/22 Unknown Rx diabetic shoes no inserts #1 ea 07/14/20 03/03/22 Unknown Rx Diabetic Shoes #1 ea 08/13/20 03/03/22 Unknown Rx albuterol sulfate 2.5 mg/3 mL 2.5 mg (3 mL) inhalation QID PRN 11/12/20 03/07/22 05/31/21 Rx (0.083 %) solution for nebulization shortness of breath or wheezing #75 mL Custom Orthotics - Alpha and [place] #1 ea 09/14/21 03/03/22 Unknown Rx (1 pair) omeprazole 20 mg capsule,delayed 20 mg PO DAILY 90 days #90 caps 09/28/21 03/07/22 03/07/22 Rx release albuterol sulfate 90 mcg/actuation 2 puff inhalation Q6H PRN 11/04/21 03/07/22 Unknown History aerosol inhaler (Ventolin HFA) Shortness Of Breath budesonide-formoterol HFA 80 2 puff inhalation BID 11/04/21 03/07/22 03/07/22 History mcg-4.5 mcg/actuation aerosol inhaler (Symbicort) cetirizine 10 mg tablet (Zyrtec) 10 mg PO DAILY PRN Allergy Symptoms 11/04/21 03/07/22 Unknown History folic acid 1 mg tablet 1 mg PO QAM 11/04/21 03/07/22 03/07/22 History magnesium oxide 400 mg (241.3 mg 400 mg PO QAM 11/04/21 03/07/22 03/07/22 History magnesium) tablet nitroglycerin 0.4 mg sublingual 0.4 mg sublingual Q5M PRN Chest 11/04/21 03/07/22 Unknown History tablet (Nitrostat) Pain sitagliptin 100 mg-metformin ER 1 tab PO QAM 11/04/21 03/07/22 03/07/22 History 1,000 mg tablet,extended [id number] (Janumet XR) promethazine 25 mg tablet 25 mg PO Q6H PRN nausea and 12/16/21 03/07/22 Unknown Rx vomiting #60 tabs furosemide 40 mg tablet 40 mg PO QAM #90 tabs 12/19/21 03/07/22 03/07/22 Rx lisinopril 10 mg tablet 10 mg PO QAM #90 tabs 12/19/21 03/07/22 03/07/22 Rx diclofenac sodium 75 mg 75 mg PO DAILY PRN Pain 12/28/21 03/07/22 Unknown History tablet,delayed release cholecalciferol (vitamin D3) 50 50 mcg PO QAM 90 days #90 caps 12/30/21 03/07/22 03/07/22 Rx mcg (2,000 unit) capsule dapagliflozin 10 mg tablet 10 mg PO QAM 90 days #90 tabs 12/30/21 03/07/22 03/07/22 Rx (Farxiga) potassium chloride 10 mEq 10 meq PO QAM 90 days #90 tabs 12/30/21 03/07/22 03/07/22 Rx tablet,extended release oxymetazoline 0.05 % nasal spray 1 - 2 spray intranasal QAM PRN 01/05/22 03/07/22 Unknown History (Nasal [place] (oxymetazoline)) allergies tamsulosin 0.4 mg capsule 0.4 mg PO DAILY PRN Urinary 01/05/22 03/07/22 Unknown History Retention gabapentin 800 mg tablet 800 mg PO TID 30 days #90 tabs 02/16/22 03/07/22 03/07/22 Rx buspirone 15 mg tablet 15 mg PO BID #60 tabs 03/03/22 03/07/22 03/07/22 Rx desvenlafaxine succinate 50 mg 50 mg PO QAM #30 tabs 03/03/22 03/07/22 03/07/22 Rx tablet,extended release 24 hr (Pristiq) olanzapine 20 mg tablet (Zyprexa) 20 mg PO BEDTIME #30 tabs 03/03/22 03/07/22 Unknown Rx propranolol 10 mg tablet 10 mg PO TID 90 days #270 tabs 03/03/22 03/07/22 03/07/22 Rx cyclobenzaprine 10 mg tablet 10 mg PO TID PRN muscle spasm 30 03/07/22 Unknown Rx days #90 tabs oxycodone 10 mg tablet 10 mg PO Q4H PRN pain 7 days #40 03/07/22 Unknown Rx tabs Allergies Allergy/AdvReac Type Severity Reaction Status Date / Time quetiapine [From Seroquel] Allergy SEIZURES Verified 03/07/22 08:55 [facility] Anesthesia Medical History Chronic back pain COPD (chronic obstructive pulmonary disease) Diabetes mellitus Diabetic neuropathy Elevated LFTs Encounter for screening laboratory testing for COVID-19 virus Folate deficiency Gauchers disease Generalized anxiety disorder GERD (gastroesophageal reflux disease) Hyperlipidemia Hypertension Nonunion of spinal fusion Peripheral edema Psychiatric care Residual schizophrenia Viral gastroenteritis Vitamin D deficiency Surgical History History of vasectomy Family History Other Diabetes Hypertension Denies family history of Cancer Social History (Updated 03/07/22 @ 08:55 by Delia Krueger) Smoking and tobacco status: current every day smoker cigarettes Years cigarettes smoked: 22 Quit status (tobacco): has tried quititng Smoking risk assessment/counseling performed?: Yes Tobacco counseling given: counseling >3 minutes and other Alcohol intake: never Desire information about alcohol rehabilitation?: No Counseling given: No Desire information about substance/drug rehabilitation?: No Counseling given: No Adopted: No Caregiver/support person: No Lives independently: Yes Household members: family Housing: House Marital status: Single Number of children: 2 service: No Current occupational status: disabled History of recent travel: No Current gender identity: Male Data Anesthesia 03/07/22 09:15 BMP 12/06/22 09:15 Sodium 136 Potassium 4.1 Chloride 98 Carbon Dioxide 25 BUN 7 Creatinine 0.8 Glucose 147 H Calcium 10.2 Cardiac Studies: No Data to Display
[2022-03-08] VITALS (11 sets, daily range): BP systolic 140–174; BP diastolic 87–123; PULSE 71–99; RESP 18–22; TEMP 36.2–36.8; O2SAT 92–99
--- NOTE | 2022-03-08 | XR_ITS ---
WS: [id number] EXAMINATION: XR lumbar spine 2-3V* 36453 L-SPINE : 3 views REASON FOR EXAM: hardware removal L2 to pelvis COMPARISON: 02/21/2022. ORDER DATE: 03/08/2022 12:00 AM FINDINGS: The pedicle screws and rods from L2 to the upper sacrum have been removed. XR/XR lumbar spine 2-3V* [id number] IMPRESSION: Removal of the surgical hardware with disc cages remaining at L4-5 and L5-S1.
[2022-03-08 07:30] LABS: Glucose Point of Care 134 mg/dL (70-110)
[2022-03-08] MEDS: sodium chloride 0.9% 1,000 ML 30 ML IV (07:30)
[2022-03-08] MEDS: HYDROmorphone 1 mg/mL INJ 1 mL 0.5 MG IVP (07:35)
--- NOTE | 2022-03-08 07:49 | W.PM.OPSUD ---
Surgery/Procedure H&P Update DATE OF PROCEDURE: March 08, 2022 DATE H&P PERFORMED: 02/28/22 H&P UPDATE INFORMATION: I have reviewed H&P completed within last 30 days, I have examined patient prior to procedure and No changes to prior documentation PREOP DIAGNOSIS: Failed hardware lumbar spine PLANNED PROCEDURE: Operation Date: 03/08/22 08:20 Proposed Procedures p Removal OF SEGMENTAL POSTERIOR INSTERMENTATION 70035/M54.16/Z98.1(Not Applicable) - Nirmal Hannon DO
--- NOTE | 2022-03-08 07:51 | P.ANESUD_ITS ---
Pre-Anesthetic Update Pre-Anesthetic Assessment: Date of Surgery/Procedure: 03/08/22 Preop Cookie gnosis: Failed hardware lumbar spine Proposed Procedure: Operation Date: 03/08/22 08:20 Proposed Procedures p Removal OF SEGMENTAL POSTERIOR INSTERMENTATION 81371/M54.16/Z98.1(Not Applicable) - Nirmal Hannon, DO Any changes to Pre-Anesthetic Assessment?: No Last Intake: Intake Last Liquid Date 03/07/22 Last Liquid Time 22:00 Last Solid Date 03/07/22 Last Solid Time 20:30 Labs Last 48hrs: BMP 03/07/22 09:15 Sodium 136 Potassium 4.1 Chloride 98 Carbon Dioxide 25 BUN 7 Creatinine 0.8 Glucose 147 H Calcium 10.2 Vitals: Temperature 98.3 F 03/08/22 06:57 Temperature Source Temporal Artery S can 03/08/22 06:57 Pulse Rate 94 03/08/22 06:57 Respiratory Rate 18 03/08/22 06:57 Blood Pressure 140/87 03/08/22 06:57 Blood Pressure Kendal n 104 03/08/22 06:57 Pulse Oximetry 99 03/08/22 06:57 Oxygen Delivery Me thod 03/08/22 07:01 Exam: Pre-Anes Outpt Exam: alert, oriented x 3, clear to auscultation bilaterally and regular rate & rhythm Cardiac Studies: No Data to Display
[2022-03-08] MEDS: ceFAZolin 2,000 MG in sodium chloride 0.9% (plus) 50 ML 100 MG IV (08:22)
[2022-03-08] MEDS: vancomycin 1,000 MG SDV 1000 MG XX (08:59)
[2022-03-08] MEDS: acetaminophen 1,000 MG/100 ML PIGGYBACK 400 MG IV (09:12)
--- NOTE | 2022-03-08 09:44 | PM.OP ---
Operative Report Date of procedure: March 08, 2022 Pre-op diagnosis: Preop Diagnosis Failed hardware lumbar spine Post-op diagnosis: same Procedure done: 1. removal hardware from spine Surgeon: Nirmal Hannon Automobile Radiator Mechanic: Jairo Barraza Automobile Radiator Mechanic: The surgical aides teacher, Jairo Barraza, PAC was needed for his expertise under the microscope. He was important and necessary throughout the procedure to complete in a safe and timely manner. He assisted with patient positioning prepping and draping tissue retraction suctioning of the operative field protection of the dural sac and tissue closure Estimated blood loss (mL): 50 Procedure: Removal hardware from spine. Patient was brought the op suite placed in the prone position. All areas appear well-padded. Patient was prepped draped normal sterile fashion. Skin is made using previous skin incision. Subperiosteal dissection made out to the screws from L2 down to the pelvic screws. Once the screws were identified the screw caps removed bilaterally rods were removed and then screws were removed. All screws were loose once these screws removed wounds irrigated and screw holes were filled with surgical and wound was closed in layered fashion with 0 Vicryl 2-0 Vicryl and nylon suture. Sterile dressings were applied and patient was transferred to the PACU in stable condition.
[2022-03-08] MEDS: hyDRALAzine 20 mg/mL INJ 1 mL (10:31)
[2022-03-08] MEDS: metoprolol tartrate 1 mg/1 mL SDV 5 mL 5 MG IVP (10:31)
[2022-03-08] MEDS: oxyCODONE 5 mg IR Tab/Cap 10 MG PO (11:08)
--- NOTE | 2022-03-08 11:56 | ANE.PACU2 ---
Inpatient post-anesthesia follow up: Airway intact: Yes Vital signs: Temperature 97.2 F Pulse Rate 72 Respiratory Rate 18 Blood Pressure 149/91 Pulse Oximetry 95 Oxygen Delivery Me thod Room Air Oxygen Flow Rate 6 Fraction of Inspir ed Oxygen Hydration adequate: Yes Nausea and vomiting: No Pain level: 3 Mental status: Baseline
== END 2022-03-08 12:02 | disposition home or self-care (01) ==
PROVIDERS: Anesthesiology; PCP Nurse Practitioner Family; Visit Provider Orthopaedic Surgery
PROC: (CPT 20680; principal; 2022-03-08 08:10)
DX: T84.296A Other mechanical complication of internal fixation device of vertebrae, initial encounter (principal); J44.9 Chronic obstructive pulmonary disease, unspecified; I10 Essential (primary) hypertension; K21.9 Gastro-esophageal reflux disease without esophagitis; E11.9 Type 2 diabetes mellitus without complications; E78.5 Hyperlipidemia, unspecified; G89.29 Other chronic pain; Z79.891 Long term (current) use of opiate analgesic
CPT/HCPCS: 20680; 36415; 36416; 72100; 76000; 80048; 82962; J0131; J0360; J0690; J1100; J1170; J2405; J2704; J2710; J3010; J3370; J3490; J7030

== ENCOUNTER → 2022-03-14 09:13 | Outpatient (BNVA) | payer MEDICARE, MEDICAID, SELFPAY | PROVIDERS: PCP Nurse Practitioner Family; Visit Provider Orthopaedic Surgery | DX: Z47.89 Encounter for other orthopedic aftercare (principal) | CPT/HCPCS: 99024 ==

== ENCOUNTER → 2022-03-21 07:44 | Outpatient (BNVA) | payer MEDICARE, MEDICAID, SELFPAY | PROVIDERS: PCP Nurse Practitioner Family; Visit Provider Orthopaedic Surgery | DX: Z47.89 Encounter for other orthopedic aftercare (principal) | CPT/HCPCS: 99024 ==

== ENCOUNTER → 2022-04-18 07:33 | Outpatient (BNVA) | payer MEDICARE, MEDICAID, SELFPAY | PROVIDERS: PCP Nurse Practitioner Family; Visit Provider Orthopaedic Surgery | DX: Z47.89 Encounter for other orthopedic aftercare (principal) | CPT/HCPCS: 99024 ==

== ENCOUNTER 2022-04-24 06:00 | Outpatient (RCR) | payer MEDICARE, MEDICAID, SELFPAY | END 2022-05-02 23:59 | disposition home or self-care (01) | LOC: SPT 06:00 | PROVIDERS: PCP Nurse Practitioner Family; Visit Provider Orthopaedic Surgery | DX: Z47.89 Encounter for other orthopedic aftercare (principal) | CPT/HCPCS: 97110; 97162 ==

== ENCOUNTER → 2022-05-09 08:53 | Outpatient (BNVA) | payer MEDICARE, MEDICAID, SELFPAY | PROVIDERS: PCP Nurse Practitioner Family; Visit Provider Anesthesiology Pain Medicine | DX: M47.816 Spondylosis without myelopathy or radiculopathy, lumbar region (principal); M48.061 Spinal stenosis, lumbar region without neurogenic claudication; M43.16 Spondylolisthesis, lumbar region; E75.22 Gaucher disease | CPT/HCPCS: 99214 ==

== ENCOUNTER → 2022-06-06 08:00 | Outpatient (BNVA) | payer MEDICARE, MEDICAID, SELFPAY | PROVIDERS: PCP Nurse Practitioner Family; Visit Provider Orthopaedic Surgery | DX: M47.22 Other spondylosis with radiculopathy, cervical region (principal) | CPT/HCPCS: 99214 ==

== ENCOUNTER → 2022-06-20 13:21 | Outpatient (BNVA) | payer MEDICARE, MEDICAID, SELFPAY | PROVIDERS: PCP Nurse Practitioner Family; Visit Provider Anesthesiology Pain Medicine | DX: M54.16 Radiculopathy, lumbar region (principal) | CPT/HCPCS: 64483; 64484; J1100; J3490 ==

== ENCOUNTER 2022-06-30 08:19 | Outpatient (CLI) | payer MEDICARE, MEDICAID, SELFPAY ==
--- NOTE | 2022-06-30 09:30 | MR_ITS ---
WS: [id number] MRI CERVICAL SPINE NONCONTRAST HISTORY: neck pain, RUE numbness/tingling/weakness COMPARISON: None available. Technique: Multiplanar, multisequence noncontrast imaging of the cervical spine. Mild straightening of the normal cervical lordosis. C7 anterolisthesis by just under 2 mm. Mild disc narrowing and desiccation at C5-6. Signal within the cervical cord is normal. Visualized posterior fossa is unremarkable. Craniocervical junction, C1 and C2 relationship, odontoid process and soft tissues are normal. C2-C3: Normal. C3-C4: Small LEFT foraminal osteophytes. No significant encroachment upon the nerve roots. C4-C5: Very small foraminal osteophytes. No stenosis. C5-C6: Mild annular disc bulging. Disc and osteophyte encroachment upon the ventral thecal sac and fo ramina. Mild central and mild to moderate foraminal stenosis. C6-C7: Normal. C7-T1: Very mild foraminal narrowing predominantly due to the anterolisthesis of C7. There is a very small amount of increased T2 signal along the RIGHT foramen which may be some edema within the C8 ner ve root. This may be posttraumatic. Paraspinal soft tissue are normal. MR/MR cervical spin wo con* [id number] IMPRESSION: 1. No acute fractures are identified. 2. Less than 2 mm anterolisthesis of C7. 3. Increased T2 signal in the expected location of the RIGHT C8 nerve root. Co rrelate for C8 nerve root symptoms. This could be posttraumatic injury. 4. Mild central with mild to moderate foraminal stenosis at C5-6.
== END 2022-06-30 08:20 | disposition home or self-care (01) ==
LOC: RAD 08:23
PROVIDERS: PCP Nurse Practitioner Family; Visit Provider Orthopaedic Surgery
DX: M54.16 Radiculopathy, lumbar region (principal); E11.9 Type 2 diabetes mellitus without complications; Z98.1 Arthrodesis status
CPT/HCPCS: 64483; 64484; 72141; J1100; J3490

== ENCOUNTER → 2022-07-04 08:46 | Outpatient (BNVA) | payer MEDICARE, MEDICAID, SELFPAY | PROVIDERS: PCP Nurse Practitioner Family; Visit Provider Orthopaedic Surgery | DX: M47.812 Spondylosis without myelopathy or radiculopathy, cervical region (principal); M41.9 Scoliosis, unspecified; M47.816 Spondylosis without myelopathy or radiculopathy, lumbar region; M48.061 Spinal stenosis, lumbar region without neurogenic claudication; M47.22 Other spondylosis with radiculopathy, cervical region; M43.13 Spondylolisthesis, cervicothoracic region; E75.22 Gaucher disease | CPT/HCPCS: 72050; 99214 ==

== ENCOUNTER → 2022-07-10 13:27 | Outpatient (BNVA) | payer MEDICARE, MEDICAID, SELFPAY | PROVIDERS: PCP Nurse Practitioner Family; Visit Provider Podiatrist Foot & Ankle Surgery | DX: T84.84XA Pain due to internal orthopedic prosthetic devices, implants and grafts, initial encounter (principal); Y79.2 Prosthetic and other implants, materials and accessory orthopedic devices associated with adverse incidents; E11.9 Type 2 diabetes mellitus without complications; M21.41 Flat foot [pes planus] (acquired), right foot; M21.42 Flat foot [pes planus] (acquired), left foot; M20.12 Hallux valgus (acquired), left foot | CPT/HCPCS: 73630; 99213 ==

== ENCOUNTER → 2022-07-11 16:44 | Outpatient (BNVA) | payer MEDICARE, MEDICAID, SELFPAY | PROVIDERS: PCP Nurse Practitioner Family; Visit Provider Nurse Practitioner Family | DX: E78.5 Hyperlipidemia, unspecified (principal); E11.8 Type 2 diabetes mellitus with unspecified complications; I10 Essential (primary) hypertension; J30.2 Other seasonal allergic rhinitis; E55.9 Vitamin D deficiency, unspecified; K21.9 Gastro-esophageal reflux disease without esophagitis; R11.2 Nausea with vomiting, unspecified; H60.92 Unspecified otitis externa, left ear; H66.92 Otitis media, unspecified, left ear | CPT/HCPCS: 80053; 80061; 83036 ==

== ENCOUNTER → 2022-07-24 08:04 | Outpatient (BNVA) | payer MEDICARE, MEDICAID, SELFPAY | PROVIDERS: PCP Nurse Practitioner Family; Visit Provider Otolaryngology | DX: Z86.69 Personal history of other diseases of the nervous system and sense organs (principal) | CPT/HCPCS: 99213 ==

== ENCOUNTER → 2022-08-01 13:42 | Outpatient (BNVA) | payer MEDICARE, MEDICAID, SELFPAY | PROVIDERS: PCP Nurse Practitioner Family; Visit Provider Nurse Practitioner Family | DX: M25.521 Pain in right elbow (principal) | CPT/HCPCS: 73080 ==

== ENCOUNTER → 2022-08-18 13:23 | Outpatient (BNVA) | payer MEDICARE, MEDICAID, SELFPAY | PROVIDERS: PCP Nurse Practitioner Family; Visit Provider Nurse Practitioner Family | DX: M25.522 Pain in left elbow (principal) | CPT/HCPCS: 73080 ==

== ENCOUNTER → 2022-08-22 12:34 | Outpatient (BNVA) | payer MEDICARE, MEDICAID, SELFPAY | PROVIDERS: PCP Nurse Practitioner Family; Visit Provider Podiatrist Foot & Ankle Surgery | DX: E11.8 Type 2 diabetes mellitus with unspecified complications (principal); M21.41 Flat foot [pes planus] (acquired), right foot; M21.42 Flat foot [pes planus] (acquired), left foot; M20.12 Hallux valgus (acquired), left foot | CPT/HCPCS: 99214 ==

== ENCOUNTER → 2022-09-11 14:58 | Outpatient (BNVA) | payer MEDICARE, MEDICAID, SELFPAY | PROVIDERS: PCP Nurse Practitioner Family; Referring Provider Nurse Practitioner Family; Visit Provider Internal Medicine | DX: E55.9 Vitamin D deficiency, unspecified; E11.42 Type 2 diabetes mellitus with diabetic polyneuropathy; Z79.84 Long term (current) use of oral hypoglycemic drugs | CPT/HCPCS: 36415; 82306; 82607; 99204 ==

== ENCOUNTER → 2022-09-27 09:36 | Outpatient (BNVA) | payer MEDICARE, MEDICAID, SELFPAY | PROVIDERS: PCP Nurse Practitioner Family; Visit Provider Nurse Practitioner | DX: R07.81 Pleurodynia (principal); M79.10 Myalgia, unspecified site | CPT/HCPCS: 71100 ==

== ENCOUNTER → 2022-12-15 12:00 | Outpatient (BNVA) | payer MEDICARE, MEDICAID, SELFPAY | PROVIDERS: PCP Nurse Practitioner Family; Visit Provider Nurse Practitioner Family | DX: R50.9 Fever, unspecified (principal); R52 Pain, unspecified | CPT/HCPCS: 87400; 87426 ==

== ENCOUNTER → 2022-12-19 15:05 | Outpatient (BNVA) | payer MEDICARE, MEDICAID, SELFPAY | PROVIDERS: PCP Nurse Practitioner Family; Visit Provider Orthopaedic Surgery | DX: M47.22 Other spondylosis with radiculopathy, cervical region; M50.322 Other cervical disc degeneration at C5-C6 level; M25.78 Osteophyte, vertebrae | CPT/HCPCS: 72050; 99214 ==

== ENCOUNTER → 2022-12-25 14:21 | Outpatient (BNVA) | payer MEDICARE, MEDICAID, SELFPAY | PROVIDERS: PCP Nurse Practitioner Family; Visit Provider Nurse Practitioner | DX: R68.83 Chills (without fever) (principal); Z79.899 Other long term (current) drug therapy | CPT/HCPCS: 80053; 82310; 83970; 84439; 84443; 84481; 85025 ==

== ENCOUNTER → 2023-01-01 09:11 | Outpatient (BNVA) | payer MEDICARE, MEDICAID, SELFPAY | PROVIDERS: PCP Nurse Practitioner Family; Visit Provider Anesthesiology Pain Medicine | DX: M47.816 Spondylosis without myelopathy or radiculopathy, lumbar region; M48.061 Spinal stenosis, lumbar region without neurogenic claudication; M43.16 Spondylolisthesis, lumbar region; M47.22 Other spondylosis with radiculopathy, cervical region; E75.22 Gaucher disease | CPT/HCPCS: 99214 ==

== ENCOUNTER 2023-01-10 08:18 | Oncology outpatient (recurring) (ONCR) | payer MEDICARE, MEDICAID, SELFPAY | END 2023-01-30 23:59 | disposition home or self-care (01) | PROVIDERS: PCP Nurse Practitioner Family; Visit Provider Internal Medicine Medical Oncology | DX: E75.22 Gaucher disease (principal) | CPT/HCPCS: 99204 ==

== ENCOUNTER → 2023-01-16 08:23 | Outpatient (BNVA) | payer MEDICARE, MEDICAID, SELFPAY | PROVIDERS: PCP Nurse Practitioner Family; Visit Provider Orthopaedic Surgery | DX: M47.22 Other spondylosis with radiculopathy, cervical region (principal); M25.519 Pain in unspecified shoulder | CPT/HCPCS: 73030; 99214 ==

== ENCOUNTER → 2023-01-23 08:32 | Outpatient (BNVA) | payer MEDICARE, MEDICAID, SELFPAY | PROVIDERS: PCP Nurse Practitioner Family; Visit Provider Otolaryngology | DX: H61.23 Impacted cerumen, bilateral (principal); M26.623 Arthralgia of bilateral temporomandibular joint | CPT/HCPCS: 69210; 99213 ==

== ENCOUNTER → 2023-01-24 15:18 | Outpatient (BNVA) | payer MEDICARE, MEDICAID, SELFPAY | PROVIDERS: PCP Nurse Practitioner Family; Visit Provider Specialist | DX: G62.89 Other specified polyneuropathies (principal); M47.22 Other spondylosis with radiculopathy, cervical region | CPT/HCPCS: 95911; 95885; 95909; 95910; 99202 ==

== ENCOUNTER → 2023-02-02 15:10 | Outpatient (BNVA) | payer MEDICARE, MEDICAID, SELFPAY | PROVIDERS: PCP Nurse Practitioner Family; Visit Provider Nurse Practitioner Family | DX: M16.11 Unilateral primary osteoarthritis, right hip (principal); M25.551 Pain in right hip | CPT/HCPCS: 73502 ==

== ENCOUNTER → 2023-03-14 08:14 | Outpatient (BNVA) | payer MEDICARE, MEDICAID, SELFPAY | PROVIDERS: PCP Nurse Practitioner Family; Visit Provider Podiatrist Foot & Ankle Surgery | DX: E11.9 Type 2 diabetes mellitus without complications; M21.41 Flat foot [pes planus] (acquired), right foot; M21.42 Flat foot [pes planus] (acquired), left foot; M20.12 Hallux valgus (acquired), left foot; M20.22 Hallux rigidus, left foot | CPT/HCPCS: 73630; 99213 ==

== ENCOUNTER → 2023-03-21 15:27 | Outpatient (BNVA) | payer MEDICARE, MEDICAID, SELFPAY | PROVIDERS: PCP Nurse Practitioner Family; Visit Provider Nurse Practitioner | DX: E11.9 Type 2 diabetes mellitus without complications (principal); J44.9 Chronic obstructive pulmonary disease, unspecified; K12.2 Cellulitis and abscess of mouth; E55.9 Vitamin D deficiency, unspecified; E11.8 Type 2 diabetes mellitus with unspecified complications; I10 Essential (primary) hypertension; M47.22 Other spondylosis with radiculopathy, cervical region; Z98.1 Arthrodesis status; J30.2 Other seasonal allergic rhinitis; K21.9 Gastro-esophageal reflux disease without esophagitis | CPT/HCPCS: 80053; 80061; 81000; 83036 ==

== ENCOUNTER → 2023-05-16 14:15 | Outpatient (BNVA) | payer MEDICARE, MEDICAID, SELFPAY | PROVIDERS: PCP Nurse Practitioner Family; Visit Provider Dermatology | DX: L72.0 Epidermal cyst (principal) | CPT/HCPCS: 10060; 99203 ==

== ENCOUNTER → 2023-05-17 13:45 | Outpatient (BNVA) | payer MEDICARE, MEDICAID, SELFPAY | PROVIDERS: PCP Nurse Practitioner Family; Visit Provider Surgery | DX: D22.30 Melanocytic nevi of unspecified part of face (principal) | CPT/HCPCS: 99204 ==

== ENCOUNTER 2023-06-26 05:15 | Day surgery (SDC) | payer MEDICARE, MEDICAID, SELFPAY ==
[2023-06-26] VITALS (11 sets, daily range): BP systolic 115–143; BP diastolic 70–92; PULSE 72–89; RESP 10–18; TEMP 36.1–36.4; O2SAT 95–99; BMI 25.8
[2023-06-26] MEDS: scopolamine 1.5 Patch 1 PATCH TRANSDERMA (07:00)
[2023-06-26] MEDS: sodium chloride 0.9% 1,000 ML 30 ML IV (07:08)
[2023-06-26 07:11] LABS: Glucose Point of Care 130 mg/dL (70-110)
--- NOTE | 2023-06-26 07:11 | PM.HP ---
Providers/Chief Complaint Primary Care Provider: WYATT Thomas Chief Complaint: R22.9, D23.30 History of Present Illness Aries Gutierrez is a 42 year old male Review of Systems General: Reports: 10 or more systems reviewed and unremarkable except in HPI and below Medications/Allergies Home Medications Medication Instructions Recorded Confirmed Last Taken Type diabetic shoes no inserts #1 ea 07/14/20 05/30/23 Unknown Rx Diabetic Shoes #1 ea 08/13/20 05/30/23 Unknown Rx albuterol sulfate 2.5 mg/3 mL 2.5 mg (3 mL) inhalation QID PRN 11/12/20 06/25/23 05/31/21 Rx (0.083 %) solution for nebulization shortness of breath or wheezing #75 mL folic acid 1 mg tablet 1 mg PO QAM 11/04/21 06/25/23 06/25/23 History nitroglycerin 0.4 mg sublingual 0.4 mg sublingual Q5M PRN Chest 11/04/21 06/25/23 Unknown History tablet (Nitrostat) Pain potassium chloride 10 mEq 10 meq PO QAM #90 tabs 07/11/22 06/25/23 06/25/23 Rx tablet,extended release Diabetic Shoes with 3 pairs of #1 ea 08/22/22 05/30/23 Unknown Rx inserts diclofenac sodium 75 mg 75 mg PO BID PRN pain #60 tabs 02/02/23 06/25/23 06/25/23 Rx tablet,delayed release albuterol sulfate 90 mcg/actuation 2 puff inhalation Q6H PRN 03/21/23 06/25/23 Unknown Rx aerosol inhaler (Ventolin HFA) Shortness Of Breath #6.7 grams chlorhexidine gluconate 0.12 % 15 ml buccal BID #473 mL 03/21/23 06/25/23 06/25/23 Rx mouthwash (Peridex) cholecalciferol (vitamin D3) 50 50 mcg PO QAM 90 days #90 caps 03/21/23 06/25/23 06/25/23 Rx mcg (2,000 unit) capsule dapagliflozin propanediol 10 mg 10 mg PO QAM #30 tabs 03/21/23 06/25/23 06/25/23 Rx tablet (Farxiga) furosemide 40 mg tablet 40 mg PO QAM 90 days #90 tabs 03/21/23 06/25/23 06/25/23 Rx gabapentin 800 mg tablet 800 mg PO TID #90 tabs 03/21/23 06/25/23 06/26/23 04:00 Rx lisinopril 10 mg tablet 10 mg PO QAM #30 tabs 03/21/23 06/25/23 06/25/23 Rx omeprazole 20 mg capsule,delayed 20 mg PO DAILY #30 caps 03/21/23 06/25/23 06/25/23 Rx release sitagliptin phos 100 mg-metformin 1 tab PO QAM 90 days #90 tabs 03/21/23 06/25/23 06/25/23 Rx ER 1,000 mg tablet,extend rel 24h mp (Janumet XR) rosuvastatin 10 mg tablet (Crestor) 10 mg PO DAILY #30 tabs 04/02/23 06/25/23 06/25/23 Rx olanzapine 20 mg tablet (Zyprexa) 20 mg PO BEDTIME #90 tabs 05/30/23 06/25/23 06/25/23 Rx propranolol 10 mg tablet 10 mg PO TID 90 days #270 tabs 05/30/23 06/25/23 06/26/23 04:00 Rx desvenlafaxine succinate 50 mg 50 mg PO DAILY 06/26/23 06/25/23 06/25/23 History tablet,extended release 24 hr (Pristiq) Allergies Allergy/AdvReac Type Severity Reaction Status Date / Time quetiapine [From Seroquel] Allergy SEIZURES Verified 05/17/23 13:47 PFSH Acute PFSH: Medical History Gauchers disease Nonunion of spinal fusion Psychiatric care Diabetes mellitus Elevated LFTs GERD (gastroesophageal reflux disease) Diabetic neuropathy COPD (chronic obstructive pulmonary disease) Vitamin D deficiency Folate deficiency Chronic back pain Hypertension Hyperlipidemia Residual schizophrenia Surgical History History of vasectomy Family History Other Diabetes Hypertension Denies family history of Cancer Social History Smoking and tobacco/nicotine status: current every day tobacco/nicotine user cigarettes Years cigarettes smoked: 22 Quit status (tobacco/nicotine): has tried quititng Alcohol intake: never Substance/Drug Use: never Adopted: No Caregiver/support person: No Lives independently: Yes Household members: family Housing: House Marital status: Single Number of children: 2 service: No Current occupational status: disabled Do you think of yourself as: Straight/Heterosexual Current gender identity: Male Vitals/I&O/Wt Last Vital Signs Temp 97.6 F 06/26/23 06:49 Pulse 88 06/26/23 06:49 Resp 18 06/26/23 06:49 BP 143/92 06/26/23 07:00 Pulse Ox 99 06/26/23 06:49 O2 Del Method Room Air 06/26/23 06:52 Weight last 48 hrs Weight 170 lb A&P Assessment and plan (1) Subcutaneous mass: Plan Excision of subcutaneous mass of right cheek The risks and benefits of the procedure, including but not limited to, bleeding, infection, recurrence, scar, numbness, pain, damage to surrounding structures, nerve damage, poor cosmetic outcome were explained to the patient. They are understanding of the risks and wish to proceed. Attestations Medical Necessity Statement*: HOME Coding Level of Care Code Acute Code for Chg Fwd Diagnoses Subcutaneous mass R22.9
--- NOTE | 2023-06-26 07:23 | P.ANESASSM_ITS ---
Pre-Anesthetic Assessment Height/Weight: Height 1.73 m Weight 77.111 kg Temp Pulse Resp BP Pulse Ox O2 Del Method 97.6 F 88 18 143/92 99 Room Air 06/26/23 06:49 06/26/23 06:49 06/26/23 06:49 06/26/23 07:00 06/26/23 06:49 06/26/23 06:52 Operation Date: 06/26/23 08:25 Proposed Procedures p [id number] excision of subcutaneous mass of right cheek R22.9,D23.30(Right) - Errol Puri DO Familial anesthetic complications: Nausea Was Beta Bryanna taken within 24 hours: Yes Was Clonidine taken within 24 hours: N/A Last intake: Intake Last Liquid Date 06/25/23 Last Liquid Time 21:30 Last Solid Date 06/25/23 Last Solid Time 02:10 Social No alcohol and No tobacco former etoh Exam alert, oriented x 3, clear to auscultation bilaterally and regular rate & rhythm Airway Mallampati: Class I Dentition: false Pulmonary Chronic Obstructive Pulmonary Disease CV/HEM Hypertension GI Gastroesophageal Reflux Disease Metabolic Diabetes Mellitus gaucher's disease (symptoms are fatty liver and soft bones per patient) Neuropsych gurvinder's Anesthetic Plan ASA status: 3 Anesthesia: MAC Risk of > 500 ml blood loss (7ml/kg in children): No Medications/Allergies Home Medications Medication Instructions Recorded Confirmed Last Taken Type diabetic shoes no inserts #1 ea 07/14/20 05/30/23 Unknown Rx Diabetic Shoes #1 ea 08/13/20 05/30/23 Unknown Rx albuterol sulfate 2.5 mg/3 mL 2.5 mg (3 mL) inhalation QID PRN 11/12/20 06/25/23 05/31/21 Rx (0.083 %) solution for nebulization shortness of breath or wheezing #75 mL folic acid 1 mg tablet 1 mg PO QAM 11/04/21 06/25/23 06/25/23 History nitroglycerin 0.4 mg sublingual 0.4 mg sublingual Q5M PRN Chest 11/04/21 06/25/23 Unknown History tablet (Nitrostat) Pain potassium chloride 10 mEq 10 meq PO QAM #90 tabs 07/11/22 06/25/23 06/25/23 Rx tablet,extended release Diabetic Shoes with 3 pairs of #1 ea 08/22/22 05/30/23 Unknown Rx inserts diclofenac sodium 75 mg 75 mg PO BID PRN pain #60 tabs 02/02/23 06/25/23 06/25/23 Rx tablet,delayed release albuterol sulfate 90 mcg/actuation 2 puff inhalation Q6H PRN 03/21/23 06/25/23 Unknown Rx aerosol inhaler (Ventolin HFA) Shortness Of Breath #6.7 grams chlorhexidine gluconate 0.12 % 15 ml buccal BID #473 mL 03/21/23 06/25/23 06/25/23 Rx mouthwash (Peridex) cholecalciferol (vitamin D3) 50 50 mcg PO QAM 90 days #90 caps 03/21/23 06/25/23 06/25/23 Rx mcg (2,000 unit) capsule dapagliflozin propanediol 10 mg 10 mg PO QAM #30 tabs 03/21/23 06/25/23 06/25/23 Rx tablet (Farxiga) furosemide 40 mg tablet 40 mg PO QAM 90 days #90 tabs 03/21/23 06/25/23 06/25/23 Rx gabapentin 800 mg tablet 800 mg PO TID #90 tabs 03/21/23 06/25/23 06/26/23 04:00 Rx lisinopril 10 mg tablet 10 mg PO QAM #30 tabs 03/21/23 06/25/23 06/25/23 Rx omeprazole 20 mg capsule,delayed 20 mg PO DAILY #30 caps 03/21/23 06/25/23 06/25/23 Rx release sitagliptin phos 100 mg-metformin 1 tab PO QAM 90 days #90 tabs 03/21/23 06/25/23 06/25/23 Rx ER 1,000 mg tablet,extend rel 24h mp (Janumet XR) rosuvastatin 10 mg tablet (Crestor) 10 mg PO DAILY #30 tabs 04/02/23 06/25/23 06/25/23 Rx olanzapine 20 mg tablet (Zyprexa) 20 mg PO BEDTIME #90 tabs 05/30/23 06/25/23 06/25/23 Rx propranolol 10 mg tablet 10 mg PO TID 90 days #270 tabs 05/30/23 06/25/23 06/26/23 04:00 Rx desvenlafaxine succinate 50 mg 50 mg PO DAILY 06/26/23 06/25/23 06/25/23 History tablet,extended release 24 hr (Pristiq) Allergies Allergy/AdvReac Type Severity Reaction Status Date / Time quetiapine [From Seroquel] Allergy SEIZURES Verified 05/17/23 13:47 Current Medications Generic Name Dose Route Start Last Admin Trade Name Freq PRN Reason Stop Dose Admin Sodium Chloride 1,000 mls @ 30 mls/hr 06/26/23 06:45 06/26/23 07:08 Sodium Chloride 0.9% IV 06/27/23 06:44 30 mls/hr .Q24H MICAH Administration PFSH Anesthesia Medical History Gauchers disease Nonunion of spinal fusion Psychiatric care Diabetes mellitus Elevated LFTs GERD (gastroesophageal reflux disease) Diabetic neuropathy COPD (chronic obstructive pulmonary disease) Vitamin D deficiency Folate deficiency Chronic back pain Hypertension Hyperlipidemia Residual schizophrenia Surgical History History of vasectomy Family History Other Diabetes Hypertension Denies family history of Cancer Social History Smoking and tobacco/nicotine status: current every day tobacco/nicotine user cigarettes Years cigarettes smoked: 22 Quit status (tobacco/nicotine): has tried quititng Alcohol intake: never Substance/Drug Use: never Adopted: No Caregiver/support person: No Lives independently: Yes Household members: family Housing: House Marital status: Single Number of children: 2 service: No Current occupational status: disabled Do you think of yourself as: Straight/Heterosexual Current gender identity: Male Data Anesthesia 06/26/23 07:06 Cardiac Studies: 2 No Data to Display
[2023-06-26 07:35] LABS: Anion Gap 16.3 (5-19); Blood Urea Nitrogen 11 mg/dL (6-20); Calcium 9.6 mg/dL (8.5-10.5); Carbon Dioxide 26 mmol/L (22-29); Chloride 98 mmol/L (98-107); Creatinine Clr Calc Pharmacy 124.7993; Glomerular Filtration Rate 107.1 mL/min (90-130); Glucose 126 mg/dL (65-115); Osmolality Calculated 283 mOsm/kg (285-295); Potassium 4.3 mmol/L (3.5-5.1); Sodium 136 mmol/L (136-145)
[2023-06-26] MEDS: ceFAZolin 2,000 MG in sodium chloride 0.9% (plus) 50 ML 100 MG IV (08:06)
[2023-06-26] MEDS: lidocaine-epi 2% PF 1:200,000 20 mL SDV XX (08:27)
--- NOTE | 2023-06-26 08:49 | PM.OP ---
Operative Report Date of procedure: June 26, 2023 Pre-op diagnosis: Subcutaneous mass right cheek Post-op diagnosis: same Procedure done: Excision of subcutaneous mass right cheek measuring 1.5 cm Implants: None Specimens removed/disposition: Subcutaneous mass right cheek Surgeon: Errol Puri DO Anesthesia: General and Local Estimated blood loss (mL): 5 Complications: None apparent Brief History: This very pleasant 42-year-old gentleman who presented my office with an infected subcutaneous mass of his right cheek, likely infected epithelial inclusion cyst. He desired excision. He was treated with antibiotics and consented for excision of subcutaneous mass right cheek. Procedure: Patient still not room placed on the OR table in supine position. The right cheek was inspected prepped and draped in usual sterile fashion. General tracheal ovation was achieved by department esthesia. A timeout was performed. All present were in agreement. 2% lidocaine with epinephrine was used to anesthetize the skin overlying the subcutaneous mass of the right cheek. A 15 blade scalpel was then used to make a 1.5 cm elliptical oblique and excision of skin. Electrocautery was then used to shell out a cystic structure measured approximately 1.5 cm. Hemostasis was achieved electrocautery. Tissues were undermined for half centimeter in all directions using electrocautery. Skin was approximated using 4-0 chromic in a subcuticular interrupted fashion. 2 interrupted 5-0 nylon sutures were then placed in a simple interrupted fashion. Skin was washed and dried. Bacitracin was applied. Patient tolerated procedure well.
[2023-06-26] MEDS: neomycin-poly-bacitracin oint 28 gm 1 APPLIC TOPICAL (08:51)
[2023-06-26] MEDS: HYDROcodone-acetaminophen 7.5-325 mg Tablet 1 TAB PO (09:43)
--- NOTE | 2023-06-26 10:45 | ANE.PACU2 ---
Inpatient post-anesthesia follow up: Airway intact: Yes Vital signs: Temperature 97.4 F Pulse Rate 81 Respiratory Rate 18 Blood Pressure 124/80 Pulse Oximetry 99 Oxygen Delivery Me thod Room Air Oxygen Flow Rate Fraction of Inspir ed Oxygen Hydration adequate: Yes Nausea and vomiting: No Pain level: 1 Mental status: Baseline
== END 2023-06-26 10:42 | disposition home or self-care (01) ==
PROVIDERS: Anesthesiology; PCP Nurse Practitioner Family; Visit Provider Surgery
PROC: (CPT 11442; principal; 2023-06-26 08:15)
DX: L72.0 Epidermal cyst (principal); J44.9 Chronic obstructive pulmonary disease, unspecified; I10 Essential (primary) hypertension; K21.9 Gastro-esophageal reflux disease without esophagitis; E11.9 Type 2 diabetes mellitus without complications; E78.5 Hyperlipidemia, unspecified; F17.210 Nicotine dependence, cigarettes, uncomplicated
CPT/HCPCS: 11442; 36416; 80048; 82962; 88307; J0690; J1100; J2371; J2405; J2704; J3010; J7030

== ENCOUNTER → 2023-07-02 14:15 | Outpatient (BNVA) | payer MEDICARE, MEDICAID, SELFPAY | PROVIDERS: PCP Nurse Practitioner Family; Visit Provider Surgery | DX: L72.0 Epidermal cyst (principal); Z98.890 Other specified postprocedural states | CPT/HCPCS: 99024 ==

== ENCOUNTER → 2023-07-13 08:48 | Outpatient (BNVA) | payer MEDICARE, MEDICAID, SELFPAY | PROVIDERS: PCP Nurse Practitioner Family; Visit Provider Surgery | DX: L02.01 Cutaneous abscess of face (principal); Z98.890 Other specified postprocedural states; L72.0 Epidermal cyst | CPT/HCPCS: 99214 ==

== ENCOUNTER → 2023-07-17 07:17 | Outpatient (BNVA) | payer MEDICARE, MEDICAID, SELFPAY | PROVIDERS: PCP Nurse Practitioner Family; Visit Provider Podiatrist Foot & Ankle Surgery | DX: M24.575 Contracture, left foot; M20.42 Other hammer toe(s) (acquired), left foot; M79.672 Pain in left foot | CPT/HCPCS: 99214 ==

== ENCOUNTER → 2023-07-24 10:55 | Outpatient (BNVA) | payer MEDICARE, MEDICAID, SELFPAY | PROVIDERS: PCP Nurse Practitioner Family; Visit Provider Nurse Practitioner | DX: E11.9 Type 2 diabetes mellitus without complications (principal); J44.9 Chronic obstructive pulmonary disease, unspecified; K12.2 Cellulitis and abscess of mouth; E55.9 Vitamin D deficiency, unspecified; E11.8 Type 2 diabetes mellitus with unspecified complications; M47.22 Other spondylosis with radiculopathy, cervical region; Z98.1 Arthrodesis status; I10 Essential (primary) hypertension; E78.5 Hyperlipidemia, unspecified; E11.65 Type 2 diabetes mellitus with hyperglycemia | CPT/HCPCS: 80053; 80061; 81000; 82607; 83036 ==

== ENCOUNTER → 2023-08-06 08:10 | Outpatient (BNVA) | payer MEDICARE, MEDICAID, SELFPAY | PROVIDERS: PCP Nurse Practitioner Family; Visit Provider Surgery | DX: L02.01 Cutaneous abscess of face (principal) | CPT/HCPCS: 10060; 10140; 99214 ==

== ENCOUNTER → 2023-08-09 07:56 | Outpatient (BNVA) | payer MEDICARE, MEDICAID, SELFPAY | PROVIDERS: PCP Nurse Practitioner Family; Visit Provider Surgery | DX: R22.41 Localized swelling, mass and lump, right lower limb (principal) | CPT/HCPCS: 99214 ==

== ENCOUNTER → 2023-08-21 15:06 | Outpatient (BNVA) | payer MEDICARE, MEDICAID, SELFPAY | PROVIDERS: PCP Nurse Practitioner Family; Visit Provider Orthopaedic Surgery | DX: M54.2 Cervicalgia (principal) | CPT/HCPCS: 72050; 99213 ==

== ENCOUNTER → 2023-08-28 07:44 | Outpatient (BNVA) | payer MEDICARE, MEDICAID, SELFPAY | PROVIDERS: PCP Nurse Practitioner Family; Visit Provider Orthopaedic Surgery | DX: M47.22 Other spondylosis with radiculopathy, cervical region (principal); M54.9 Dorsalgia, unspecified | CPT/HCPCS: 72050; 72072; 99213 ==

== ENCOUNTER → 2023-09-06 08:07 | Outpatient (BNVA) | payer MEDICARE, MEDICAID, SELFPAY | PROVIDERS: PCP Nurse Practitioner Family; Visit Provider Orthopaedic Surgery | DX: Z98.1 Arthrodesis status (principal) | CPT/HCPCS: 99214 ==

== ENCOUNTER → 2023-09-10 13:15 | Outpatient (BNVA) | payer MEDICARE, MEDICAID, SELFPAY | PROVIDERS: PCP Nurse Practitioner Family; Visit Provider Podiatrist Foot & Ankle Surgery | DX: E11.9 Type 2 diabetes mellitus without complications (principal); M24.575 Contracture, left foot; M20.42 Other hammer toe(s) (acquired), left foot | CPT/HCPCS: 99213 ==

== ENCOUNTER 2023-09-18 13:08 | Outpatient (CLI) | payer MEDICARE, MEDICAID, SELFPAY ==
--- NOTE | 2023-09-18 13:16 | XRR_ITS ---
PROCEDURE INFORMATION: Exam: XR Left Hip Exam date and time: 09/18/2023 1:20 PM Age: 42 years old Clinical indication: Injury or trauma; Fall; Blunt trauma (contusions or hematomas); Injury details: Fell and landed on lower back/left hip last Sunday. Pain radiating from lower back through the hip. ; Additional info: M54.50 - low back pain, unspecified TECHNIQUE: Imaging protocol: Radiologic exam of the left hip. Views: 2 or 3 views hip with pelvis when performed. COMPARISON: CT abdomen pelvis w con* [id number] 11/04/2021 6:41 AM FINDINGS: Bones/joints: Unremarkable. No acute fracture. Soft tissues: Unremarkable. XR/XR hip LT 2-3V wo/w pel* [id number] IMPRESSION: No acute findings.
--- NOTE | 2023-09-18 13:16 | XRR_ITS ---
PROCEDURE INFORMATION: Exam: XR Lumbosacral Spine Exam date and time: 09/18/2023 1:20 PM Age: 42 years old Clinical indication: Injury or trauma; Fall; Blunt trauma (contusions or hematomas); Injury details: Fell and landed on lower back/left hip last Sunday. Pain radiating from lower back through the hip. Prior surgery; Surgery date: 6+ months; Surgery type: L spine; Additional info: M54.50 - low back pain, unspecified TECHNIQUE: Imaging protocol: Radiologic exam of the lumbosacral spine. Views: 2 or 3 views. COMPARISON: OT XR lumbar spine 2-3V* [id number] 03/08/2022 9:26 AM FINDINGS: Bones/joints: Anterior fusion L4 through S1. Minimal anterolisthesis of L5 on S1, minimal retrolisthesis of L4 on L5. No. No fracture. No lytic or sclerotic bone lesion.. No acute fracture. Soft tissues: Unremarkable. XR/XR lumbar spine 2-3V* [id number] IMPRESSION: No acute findings.
== END 2023-09-18 13:09 | disposition home or self-care (01) ==
PROVIDERS: PCP Nurse Practitioner Family; Visit Provider Nurse Practitioner
DX: M54.50 Low back pain, unspecified (principal); M79.605 Pain in left leg; M43.27 Fusion of spine, lumbosacral region
CPT/HCPCS: 72100; 73502

== ENCOUNTER 2023-10-02 07:54 | Outpatient (CLI) | payer MEDICARE, MEDICAID, SELFPAY ==
--- NOTE | 2023-10-02 08:45 | MR_ITS ---
WS: [id number] MRI LUMBAR SPINE WITH CONTRAST TECHNIQUE: Sagittal T1, T2 and STIR imaging. Axial T1 and T2 imaging. Post gadolinium imaging was obt ained. CLINICAL INFORMATION: Back Pain COMPARISON: MRI 2020 FINDINGS: Mild lumbar curve. No acute compression. Grade 1 anterolisthesis L5 on S1 with chronic spondylolysis. Interbody fusion L4-L5 and L5-S1. Dorsal lateral bone graft material. Disc bulging worse at L3-L4 an d L4-L5. L1-L2: Mild annular bulging. Slight effacement of the ventral thecal sac. Mild facet arthropathy. Tin y RIGHT foraminal protrusion with mild RIGHT foraminal narrowing. L2-L3: Mild annular bulging. Moderate facet arthropathy. Spinal canal and foramen are patent. L3-L4: Shallow central disc protrusion with small annular tear. Mild to moderate central canal stenos is appears slightly progressed compared to previous. Moderate facet arthropathy. Progressed mild to m oderate RIGHT foraminal narrowing. LEFT foramen is patent. L4-L5: Interbody fusion graft. Slight effacement of ventral thecal sac. Narrowing of the subarticular recess bilaterally. Moderate facet arthropathy. Foramen are patent. Laminectomy defects. L5-S1: Grade 1 anterolisthesis with chronic spondylolysis. Laminectomy defects. Advanced facet arthro rosemary. Spinal canal is patent. Slight narrowing of the LEFT subarticular recess. Mild bilateral raymon inal narrowing. Visualized pelvic bony structures: Normal. Paravertebral soft tissues: Normal. MR/MR lumbar spine wo/w con [id number] IMPRESSION: 1. Mild lumbar curve. No acute compression. Interbody fusion L4-L5 and L5-S1. Grade 1 anterolisthesis L5 on S1 with chronic spondylolysis. 2. Mild to moderate central canal stenosis L3-4 slightly progressed with small central protrusion and a small annular. 3. Mild narrowing of the LEFT greater than RIGHT subarticular recess L4-L5 and L5-S1. 4. Mild to moderate RIGHT L3-4 foraminal narrowing appears progressed compared to previous.
[2023-10-02] MEDS: gadobenate dimeglumine 20 mL vial IV (09:02)
== END 2023-10-02 07:55 | disposition home or self-care (01) ==
LOC: RAD 07:54
PROVIDERS: PCP Nurse Practitioner Family; Visit Provider Orthopaedic Surgery
DX: M48.061 Spinal stenosis, lumbar region without neurogenic claudication (principal); M99.63 Osseous and subluxation stenosis of intervertebral foramina of lumbar region
CPT/HCPCS: 72158; A9577

== ENCOUNTER → 2023-11-12 14:34 | Outpatient (BNVA) | payer MEDICARE, MEDICAID, OTHER, SELFPAY | PROVIDERS: PCP Nurse Practitioner Family; Visit Provider Nurse Practitioner | DX: E11.9 Type 2 diabetes mellitus without complications (principal) | CPT/HCPCS: 80053; 80061; 81000; 83036 ==

== ENCOUNTER → 2024-02-07 09:50 | Outpatient (BNVA) | payer MEDICARE, MEDICAID, SELFPAY | PROVIDERS: PCP Nurse Practitioner Family; Visit Provider Podiatrist Foot & Ankle Surgery | DX: M79.672 Pain in left foot (principal); S90.122A Contusion of left lesser toe(s) without damage to nail, initial encounter; W22.03XA Walked into furniture, initial encounter | CPT/HCPCS: 73630; 99213 ==

== ENCOUNTER → 2024-03-13 15:34 | Outpatient (BNVA) | payer MEDICARE, MEDICAID, SELFPAY | PROVIDERS: PCP Nurse Practitioner Family; Visit Provider Orthopaedic Surgery | DX: M54.2 Cervicalgia (principal); M47.22 Other spondylosis with radiculopathy, cervical region; M54.50 Low back pain, unspecified; M79.605 Pain in left leg | CPT/HCPCS: 72050; 72110; 99213 ==

== ENCOUNTER 2024-03-19 06:58 | Outpatient (CLI) | payer MEDICARE, MEDICAID, SELFPAY ==
--- NOTE | 2024-03-19 07:15 | MR_ITS ---
WS: [id number] MRI CERVICAL SPINE NONCONTRAST TECHNIQUE: Sagittal T1, T2 and STIR imaging. Axial T2, gradient, and fiesta imaging. CLINICAL INFORMATION: back pain COMPARISON: MRI 06/30/2022 FINDINGS: Straightening the normal cervical lordosis. Grade 1 anterolisthesis C7 on T1 measuring 3 to 4 mm incr eased compared to previous. Cord signal is normal. C2-C3: Normal. C3-C4: Mild disc bulging with osteophytic ridging. Mild bilateral bony foraminal narrowing. Spinal ca nal is patent. C4-C5: No significant disc bulging. Mild facet arthropathy. Mild LEFT bony foraminal narrowing. C5-C6: Mild disc osteophyte ridging. Mild bilateral bony foraminal narrowing similar to previous. Mil d facet arthropathy. Spinal canal is patent. C6-C7: No significant disc bulging. Spinal canal and foramen are patent. C7-T1: Anterolisthesis C7 on T1 appears increased compared to previous measuring approximately 3 to 4 mm today. Spinal canal is patent. Moderate LEFT foraminal narrowing. RIGHT foramen is patent. T1-T2: Normal. Visualized brain stem structures: Normal. Prevertebral soft tissues: Normal. Mild cerebellar tonsillar ectopia. MR/MR cervical spin wo con* [id number] IMPRESSION: 1. Straightening the normal cervical lordosis. 2. Increased anterolisthesis C7 on T1 measuring 3 to 4 mm. Moderate LEFT C7-T1 bony foraminal narrowing. 3. Disc bulge with osteophytic ridging at C5-C6 with slight effacement of the ventral thecal sac. 4. Mild LEFT C4-5 and bilateral C5-6 bony foraminal narrowing.
== END 2024-03-19 06:59 | disposition home or self-care (01) ==
PROVIDERS: PCP Nurse Practitioner Family; Visit Provider Orthopaedic Surgery
DX: M54.50 Low back pain, unspecified (principal); M79.605 Pain in left leg; M40.40 Postural lordosis, site unspecified; M48.03 Spinal stenosis, cervicothoracic region; M47.812 Spondylosis without myelopathy or radiculopathy, cervical region; M25.78 Osteophyte, vertebrae; M50.323 Other cervical disc degeneration at C6-C7 level; M48.02 Spinal stenosis, cervical region
CPT/HCPCS: 72141

== ENCOUNTER → 2024-04-08 10:32 | Outpatient (BNVA) | payer MEDICARE, MEDICAID, SELFPAY | PROVIDERS: PCP Nurse Practitioner Family; Visit Provider Nurse Practitioner Family | DX: R05.9 Cough, unspecified (principal) | CPT/HCPCS: 71046 ==

== ENCOUNTER → 2024-04-30 14:05 | Outpatient (BNVA) | payer MEDICARE, MEDICAID, OTHER, SELFPAY | PROVIDERS: PCP Nurse Practitioner Family; Visit Provider Nurse Practitioner | DX: E11.9 Type 2 diabetes mellitus without complications (principal); J44.9 Chronic obstructive pulmonary disease, unspecified; R00.0 Tachycardia, unspecified | CPT/HCPCS: 80053; 80061; 82607; 83036 ==

== ENCOUNTER → 2024-08-05 12:43 | Outpatient (BNVA) | payer MEDICARE, MEDICAID, SELFPAY | PROVIDERS: PCP Nurse Practitioner; Visit Provider Family Medicine | DX: M79.641 Pain in right hand (principal) | CPT/HCPCS: 73130 ==

== ENCOUNTER → 2024-09-09 11:11 | Outpatient (BNVA) | payer MEDICARE, MEDICAID, SELFPAY | PROVIDERS: PCP Nurse Practitioner; Visit Provider Nurse Practitioner Family | DX: R30.0 Dysuria (principal); R10.11 Right upper quadrant pain | CPT/HCPCS: 80053; 81000; 85025 ==

== ENCOUNTER 2024-09-11 06:42 | Outpatient (CLI) | payer MEDICARE, MEDICAID, SELFPAY ==
--- NOTE | 2024-09-11 06:45 | USR_ITS ---
PROCEDURE INFORMATION: Exam: US Abdomen, Limited; Right Upper Quadrant Exam date and time: 09/11/2024 6:55 AM Age: 43 years old Clinical indication: Abdominal pain; Tenderness; Right upper quadrant (ruq); Additional info: R10.11 - right upper quadrant pain. No history of recent trauma or surgery is provided. TECHNIQUE: Imaging protocol: Real time ultrasound of the abdomen with image documentation. Limited exam focused on the right upper quadrant. 331image(s) are provided. Other technique: Grayscale, color images are provided. COMPARISON: CT abdomen pelvis w con* [id number] 11/04/2021 6:41 AM. Abdominal ultrasound 06/23/2015. FINDINGS: Liver: The liver measures 17.6 cm. The hepatic echotexture is coarse, heterogeneously increased. There appears to be some subtle cortical lobulation. There is some low echogenicity demonstrated about the gallbladder fossa margin somewhat similar the previous studies suggestive of sparing. No internal color flow or vascular connection is currently appreciated. Gallbladder: No interval echogenic obstructive calculus, wall thickening or significant pericholecystic fluid is appreciated. There appears to be some trace sludge. No sonographic Guo's sign is currently provided. Biliary ducts: No biliary ductal dilatation or echogenic calculus is appreciated. The common bile duct measures 0.3 cm. Pancreas: The pancreas is largely obscured. Right kidney: The right kidney measures 10.3 x 5.8 x 5.4 cm. No echogenic obstructive calculus or hydronephrosis is appreciated. Aorta: The distal aorta measures around 1.5 cm. Proximal and mid are obscured. 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 Portal venous: The portal venous flow velocity is within normal. Intraperitoneal space: No significant interval free fluid is appreciated. There is some bowel-gas, penetration limiting artifact present. No other significant interval changes are appreciated. US/US gall bladder [id number] IMPRESSION: 1. There is coarse, heterogeneously increased echotexture of the liver overall.This can be seen with processes including steatosis as well as hepatic disease related changes. In addition there appears to be some heterogeneity suggestive sparing about the gallbladder fossa somewhat similar. 2. No interval echogenic obstructive gallbladder calculus or significant wall thickening is appreciated. Consider hepatobiliary laboratory profile studies.
== END 2024-09-11 06:43 | disposition home or self-care (01) ==
PROVIDERS: PCP Nurse Practitioner Family; Visit Provider Nurse Practitioner Family
DX: R10.11 Right upper quadrant pain (principal); R93.2 Abnormal findings on diagnostic imaging of liver and biliary tract
CPT/HCPCS: 76705

== ENCOUNTER → 2024-11-07 08:48 | Outpatient (BNVA) | payer MEDICARE, MEDICAID, OTHER, SELFPAY | PROVIDERS: PCP Nurse Practitioner; Visit Provider Nurse Practitioner | DX: E78.5 Hyperlipidemia, unspecified (principal); E11.65 Type 2 diabetes mellitus with hyperglycemia; E55.9 Vitamin D deficiency, unspecified | CPT/HCPCS: 80053; 80061; 81000; 82043; 82306; 83036; 84443 ==

== ENCOUNTER → 2025-01-22 11:54 | Outpatient (BNVA) | payer MEDICARE, MEDICAID, SELFPAY | PROVIDERS: PCP Nurse Practitioner; Visit Provider Nurse Practitioner | DX: E55.9 Vitamin D deficiency, unspecified (principal); I10 Essential (primary) hypertension; E75.22 Gaucher disease | CPT/HCPCS: 80053; 80061; 82306; 85025 ==